=== PATIENT | female | born 1935 | race Caucasian/White ===

== ENCOUNTER 2017-12-08 13:46 | Outpatient (CLI) | payer MEDICARE, MEDICAID, SELFPAY ==
[2017-12-08] VITALS (9 sets, daily range): BP systolic 111–152; BP diastolic 49–77; PULSE 64–78; RESP 18–20; TEMP 36.4; O2SAT 97–100
--- NOTE | 2017-12-08 13:47 | DI.RAD.S_ITS ---
PROCEDURE: PAIN L/S TRANSFORAMINAL INJECT INDICATIONS: Lumbar stenosis with right lower extremity symptoms FINDINGS: Fluoroscopic spot filming was performed to verify placement of spinal needles at the right L4-5 level(s), as labeled on the films. Appropriate location(s) of the needle tip(s) was confirmed by injection of iodinated contrast. IMPRESSION: Successful right L4-L5 needle tip localization for transforaminal epidural steroid injection. Dictated by: Marcio Maravilla M.D. on 12/08/2017 at 15:56 Approved by: Marcio Maravilla M.D. on 12/08/2017 at 16:11
[2017-12-08] MEDS: MIDAZOLAM 5 MG/5 ML VIAL IV (14:25)
[2017-12-08] MEDS: IOPAMIDOL 15 ML VIAL 3 ML INJ (14:34)
[2017-12-08] MEDS: DEXAMETHASONE 10 MG/ML VIAL 20 MG INJ (14:34)
[2017-12-08] MEDS: BUPIVACAINE 0.25% (PF) VIAL 2 ML INJ (14:34)
[2017-12-08] MEDS: methylPREDNISolone acetate 80 MG/ML VIAL INJ (14:34)
--- NOTE | 2017-12-08 14:36 | PC.NURSE ---
pt being assisted off table and transported to post op area in stable condition
--- NOTE | 2017-12-08 14:42 | P.PCN_ITS ---
Procedures Date/Time Date of procedure: 12/08/17 Time of procedure: 14:41 General Procedure description: PREOP DIAGNOSIS 1. FORMAINAL STENOSIS WITH LE SYMPTOMS POST OP DIAGNOSIS 1. FORMAINAL STENOSIS WITH LE SYMPTOMS PROCEDURES 1. FLUOROSCOPICALLY GUIDED CONTRAST CONTROLLED TRANSFORAMINAL EPIDURAL STEROID INJECTION - RIGHT L4/5 TFESI PHYSICIAN: Richie Burden DO INDICATIONS: Uyen is referred by Dr. Mchugh for treatment of Foraminal Stenosis with Right LE Symptoms FINDINGS Foraminal Nerve Root Compression secondary to disc disease and facet hypertrophy DESCRIPTION OF PROCEDURE: Following denial of allergy and review of potential side effects and complications, including, but not necessarily limited to, infection, allergic reaction, local tissue breakdown, stroke, temporary or permanent nerve injury, paralysis, and possible , the patient indicated that the patient understood and agreed to proceed. An informed consent document was signed by the patient, witnessed by a nurse, and placed in the patient's chart. Additionally, other treatment options including medications, modalities, and physical therapy were reviewed with the patient. After review of previous anaesthesic history and IV conscious sedation the patient was deemed safe to proceed with todays procedure with IV conscious sedation as ASA class II designation. Safety time-out was performed to confirm patient ID, procedure to be performed and site of procedure. IV sedation was accomplished with a combination of 2mg of Versed was administered by the RN after DO order, titrated to patient comfort during the course of the procedure while the patient remained responsive to all verbal commands In the prone position following sterile prep and drape of the lumbar region, the Right L4/5 posterior neuroforamen was identified fluoroscopically. The skin was anesthetized via a 25-gauge 1.5-inch needle with 1% lidocaine solution. At this point, a 25-gauge 3.5-inch spinal needle was atraumatically introduced and advanced under fluoroscopic guidance through the posterior Right L4/5 neuroforamen to approximately the anterior aspect of the canal. Depth was confirmed on lateral view. Following negative aspiration, injection of approximately 1.5 cc of Isovue 200 under live fluoroscopy in the AP view confirmed excellent flow along the nerve root, into the epidural space without vascular or intrathecal uptake observed Radiological data, including multiple fluoroscopic views of the lumbosacral spine, reveal a spinal needle at the right L4/5 posterior neuroforamen. Subsequent views show flow of contrast material flowing superiorly and inferiorly along the nerve root confirming epidural flow. Subsequently, a test dose of 1.5 cc of 1% lidocaine solution was administered and patient was observed for two minutes for signs or symptoms of complications , including abdominal pain, shortness of breath, bilateral upper or lower extremity weakness, nausea and vomiting, prior to steroid injection. At this point, a total of 3 cc or 20 mg of dexamethasone and 80mg Depo Medrol was injected without incident. The procedure tolerated the procedure well without signs or symptoms of complications prior to transfer to the recovery area continued monitoring without incident.The patient was then transferred to the recovery area where they were observed for an appropriate time after the injection. The patient reported a VAS score of 7 prior to the procedure and a post- procedure VAS of 0. Total Fluoroscopy Time: 20.9 seconds Total Conscious Sedation Time: 24min POST OP INSTRUCTIONS The patient was provided a Pain Log to continue to record their response to the target-specific procedure prior to follow-up visit with their referring physician. Additionally, specific post-injection care instructions and a contact number to our office were provided if concerns arise regarding possible complications associated with the procedure are suspected. Richie Burden DO Complications: none
--- NOTE | 2017-12-08 14:54 | PC.NURSE ---
Received pt from [facility] after procedure. pt stable awake and able to transfer from w/c to chair. resumed monitoring.
== END 2017-12-08 15:20 ==
LOC: RAD 13:46
PROVIDERS: Family Provider Family Medicine; PCP Family Medicine; Visit Provider Physical Medicine & Rehabilitation
DX: M48.061 Spinal stenosis, lumbar region without neurogenic claudication (principal); M51.16 Intervertebral disc disorders with radiculopathy, lumbar region; S32.000A Wedge compression fracture of unspecified lumbar vertebra, initial encounter for closed fracture
CPT/HCPCS: 64483; 99152; J1040; J1100; J2250

== ENCOUNTER → 2018-04-07 10:18 | Outpatient (CLI) | payer MEDICARE, MEDICAID, SELFPAY ==
--- NOTE | 2018-04-07 | DI.MRI.S_ITS ---
PROCEDURE: MR LUMBAR SPINE WO CON INDICATIONS: LOW BACK PAIN TECHNIQUE: Noncontrast sagittal T1 spin echo and T2 fast echo, sagittal STIR, axial T1 and T2 fast spin echo through the lumbar spine. In cases with scoliosis, additional coronal T2 fast spin echo may be performed. COMPARISON: [facility], MR, L-SPINE WITHOUT CONTRAST, 03/13/2014, 9:41. [facility], MR, L-SPINE WITHOUT CONTRAST, 04/24/2016, 10:39. [facility], MR, L-SPINE WITHOUT CONTRAST, 07/03/2011, 9:34. FINDINGS: Image quality: Excellent. Alignment and Curvature: There is normal bony alignment. Bone Marrow: Marrow is of normal overall signal. Several remote compression deformities are seen, including approximately 50% loss of height anteriorly at T12, 40-50% loss of height centrally at L2, approximately 30% loss of height essentially at L4, and approximately 40% loss of height centrally at L5. No acute features are seen. No acute vertebral body compression fractures. Spinal Cord: Conus medullaris terminates at the T12-L1 level. Visualized cord demonstrates normal signal and size. Paraspinous Soft Tissues: No paravertebral masses. T12-L1: Moderate loss of disc height is seen. Loss of disc signal is seen. Moderate generalized disc bulge is seen. Moderate facet joint hypertrophy is seen. Moderate bilateral neural foraminal narrowing is seen, right worse than left. Moderate central canal narrowing is seen. When comparison is made with the prior examination, these findings are similar. L1-L2: At least moderate loss of disc height and disc signal are seen. Moderate disc bulge is seen, with a central disc protrusion, as on series 5 image 13. Mild to moderate facet hypertrophy is seen. There is mild left-sided and no right-sided neural foraminal narrowing seen. Severe central canal narrowing is seen at this level. These degenerative changes have mildly progressed compared to 2017. L2-L3: Mild to moderate loss of disc height and disc signal are seen. Moderate disc bulge is seen, which is eccentric to the right. There is moderate right-sided and moderate to severe left-sided neural foraminal narrowing seen. Severe central canal narrowing is seen at this level. Stable from the prior study. L3-L4: The disc height is well-preserved. Loss of disc signal is seen at this level. Note is made of a non-acute Schmorl's node at the superior endplate of L4, as on series 2 image 8. Moderate disc bulge is seen at this level. Moderate facet hypertrophy is seen, with associated moderate hypertrophy of the ligamentum flavum. Moderate bilateral neural foraminal narrowing is seen. Moderate central canal narrowing is seen. When comparison is made with the prior examination, these findings are similar. L4-L5: The disc height is well-preserved. Loss of disc signal is seen at this level. At least moderate disc bulge is seen. Moderate to prominent facet hypertrophy is seen at this level. There is associated moderate hypertrophy of the ligamentum flavum. There is at least moderate left-sided and moderate to severe right-sided neural foraminal narrowing seen. There is severe central canal narrowing. Stable from the prior study. L5-S1: The disc height is well-preserved. Loss of disc signal is seen at this level. Moderate disc bulge is seen, which is eccentric to the right. Moderate to prominent facet hypertrophy is seen. There is moderate to severe bilateral neural foraminal narrowing seen. At least moderate central canal narrowing is seen. No significant change from the prior. IMPRESSION: Multiple levels of lumbar spine degenerative changes are seen, which are mildly progressed at L1-L2 compared to 2017, yet otherwise appear similar. Multiple levels of stable compression deformities can be seen. Dictated by: John Solorzano M.D. on 04/07/2018 at 10:42 Approved by: John Solorzano M.D. on 04/07/2018 at 10:50
== END ==
PROVIDERS: PCP Family Medicine; Visit Provider Acupuncturist
DX: M54.5 Low back pain (principal); M47.816 Spondylosis without myelopathy or radiculopathy, lumbar region; M47.817 Spondylosis without myelopathy or radiculopathy, lumbosacral region; M48.061 Spinal stenosis, lumbar region without neurogenic claudication; M48.07 Spinal stenosis, lumbosacral region
CPT/HCPCS: 72148

== ENCOUNTER → 2020-10-15 11:57 | Outpatient (CLI) | payer MEDICARE, MEDICAID, SELFPAY ==
--- NOTE | 2020-10-15 12:03 | DI.RAD.S_ITS ---
PROCEDURE: XR HIP W PEL IF DONE LT 2V INDICATIONS: LT HIP/THIGH OSTEOARTHRITIS TECHNIQUE: AP pelvis and lateral view of the left hip acquired. COMPARISON: [facility], , HIP 2V RIGHT, 08/09/2014, 12:01. FINDINGS: Bones: Patient is status post right hip arthroplasty, with hardware components in expected positions. The hip joint appears congruent. There is been interval progression of now severe, complete left femoroacetabular joint space loss, irregular sclerotic change, and spurring. There are also degenerative changes in the visible lumbar spine. The visualized bony structures appear intact. Soft tissues: Overlying postoperative changes are noted. No suspicious soft tissue densities. IMPRESSION: 1. Progression of now severe left hip osteoarthritic change. 2. Stable right hip arthroplasty. Dictated by: Krysta Hatch M.D. on 10/15/2020 at 15:12 Approved by: Krysta Hatch M.D. on 10/15/2020 at 15:12
== END ==
PROVIDERS: PCP Family Medicine; Referring Provider Acupuncturist; Visit Provider Acupuncturist
DX: M16.12 Unilateral primary osteoarthritis, left hip (principal); Z96.641 Presence of right artificial hip joint
CPT/HCPCS: 73502

== ENCOUNTER 2020-11-20 12:27 | Emergency (ER) | payer MEDICARE, MEDICAID, SELFPAY ==
[2020-11-20 12:32] VITALS: BP 159/67; PULSE 67; RESP 16; TEMP 36.8; O2SAT 96; BMI 43.4
--- NOTE | 2020-11-20 12:35 | DI.RAD.S_ITS ---
PROCEDURE: XR RIBS RT MIN 3V W CXR 1V INDICATIONS: fall,rib pain TECHNIQUE: To views of the right ribs were acquired, along with a single view chest. COMPARISON: None. FINDINGS: Surgical changes and devices: None. Bones and chest wall: No fractures or dislocations. No suspicious bony lesions. Overlying soft tissues appear unremarkable. Generalized decrease in osseous mineralization noted. Bilateral glenohumeral joint space narrowing and marginal osteophytes greater on the left. Lungs and pleura: No pleural effusions or pneumothorax. Lungs appear clear. Mediastinum: Mediastinal contours appear normal. Heart size is normal. Atherosclerotic vascular calcification noted in the aortic arch. IMPRESSION: Osteopenia without evidence of fracture or pneumothorax Approved by: Froy Dominique M.D. on 11/20/2020 at 12:17
--- NOTE | 2020-11-20 12:48 | ED.FALL ---
HPI - Fall <Tonja Wilfredo [facility]ta [facility] - Last Filed: 11/20/20 16:23> General Chief Complaint: Fall Stated Complaint: fell on wednesday- still in pain, feels ribs cracked Time Seen by Provider: 11/20/20 12:48 Source: patient Mode of arrival: Wheelchair History of Present Illness HPI Narrative: 84-year-old female presents to the ED for right sided rib pain after having a ground level fall at home 11/18/2020. She denies hitting her head in the fall, states EMS came, she was having difficulty getting up due to her chronic left hip pain. She declined going to the emergency department as she did not have any pain, or any obvious injuries. She reports that she was having a difficult time trying to pull herself up and that is when she feels like she injured her right ribs. She denies having any shortness of breath, cough, chest pain, shoulder pain or other. She says the pain is worse when she wakes up in the morning and tries to get up, and it is about a 6/10. She reports that she sees [facility] pain clinic for her chronic pain, and takes oxycodone 3 times a day for her other problems, she states that this has not touched or rib pain it has only been helpful on her other extremity pain. Related Data Home Medications Medication Instructions Recorded Confirmed valsartan 80 mg tablet (Diovan) QPM #0 07/08/16 01/21/18 magnesium oxide SEE INSTRUCTIONS #0 05/25/17 01/21/18 albuterol sulfate 90 mcg/actuation 2 puff INHALATION Q6H PRN 12/02/17 01/21/18 aerosol inhaler (Ventolin HFA) aspirin 325 mg tablet,delayed 325 mg PO DAILY 12/02/17 01/21/18 release calcitonin (salmon) 200 1 spray INTRANASAL (ALT) DAILY 12/02/17 01/21/18 unit/actuation nasal spray cholecalciferol (vitamin D3) 25 1,000 unit PO DAILY 12/02/17 01/21/18 mcg (1,000 unit) capsule diphenhydramine HCl 25 mg capsule 25 mg PO Q4H PRN 12/02/17 01/21/18 (Benadryl) fluticasone propionate 50 2 spray NASAL DAILY 12/02/17 01/21/18 mcg/actuation nasal spray,suspension (Flonase Allergy Relief) furosemide 40 mg tablet 40 mg PO BID 12/02/17 01/21/18 meloxicam 15 mg tablet (Mobic) 15 mg PO DAILY 12/02/17 01/21/18 montelukast 10 mg tablet 10 mg PO QPM 12/02/17 01/21/18 vitamin B complex 1 cap PO DAILY 12/02/17 01/21/18 cyclobenzaprine 10 mg tablet 10 mg PO TID PRN 01/21/18 01/21/18 Previous Rx's Medication Instructions Recorded levothyroxine 50 mcg tablet 50 mcg PO QAM #90 tab 07/08/16 (Synthroid) oxycodone-acetaminophen 5 mg-325 1 tab PO TID PRN #5 tab 11/20/20 mg tablet (Percocet) Allergies Allergy/AdvReac Type Severity Reaction Status Date / Time pregabalin [From LYRICA] Allergy Unknown Verified 11/20/20 12:35 sertraline [SERTRALINE] Allergy Unknown Verified 11/20/20 12:35 gabapentin [GABAPENTIN] AdvReac Severe It was Verified 11/20/20 12:35 like I was not living morphine [MORPHINE] AdvReac Mild nausea Verified 11/20/20 12:35 Review of Systems <ANTHONY Padilla - Last Filed: 11/20/20 16:23> Review of Systems Narrative: General: denies fever, chills Head/Neck: denies headache, neck pain Eyes: denies visual changes, eye pain Cardio: denies chest pain, palpitations Respiratory: denies shortness of breath, cough, denies pain with breathing, GI: denies abdominal pain, nausea, vomiting, or diarrhea : denies dysuria, hematuria MSK: denies joint pain, muscle weakness, denies back pain Skin: denies rash, itching Neuro: denies numbness, tingling Patient History <ANTHONY Padilla - Last Filed: 11/20/20 16:23> Surgical History History of cataract removal with insertion of prosthetic lens Status post hysterectomy Family History Brother Age: 91 Heart disease Brother Age: 86 High cholesterol Father Heart disease Hypertension Mother Hypertension Sister Heart disease Social History Smoking Status: Former smoker Smoking Status: Former smoker alcohol intake frequency: holidays/special occasions only Substance Use Type: does not use Exam <ANTHONY Padilla - Last Filed: 11/20/20 16:23> Narrative Exam Narrative: Independently reviewed vitals signs and nursing notes. General: Awake, alert, nontoxic, no cardiorespiratory distress, obese Head/Neck: Atraumatic, neck full range of motion Eyes: EOMI, conjunctiva normal Nose: nares patent, no rhinorrhea Mouth/Throat: moist mucus membranes, no oral lesions Cardio: Regular rate and rhythm, no peripheral edema Respiratory: respirations unlabored without wheezing, stridor, or rales. No retractions. No crepitus GI: Abdomen soft, nontender MSK: Moves all extremities, neurovascularly intact, patient using both of her arms frequently while talking, without pain, she endorses having pain that is limiting to her movement although she does not have any flexion or extension pain of her right arm, no pain with internal or external rotation in her shoulder, no pain with deep breath, no weakness, CSM to right arm is intact, Skin: Normal capillary refill, no rash Neuro: Normal speech and cognition, normal gait Initial Vital Signs Initial Vital Signs: Vital Signs Temperature 98.2 F 11/20/20 12:32 Pulse Rate 67 11/20/20 12:32 Respiratory Rate 16 11/20/20 12:32 Blood Pressure 159/67 H 11/20/20 12:32 Pulse Oximetry 96 11/20/20 12:32 <Essie Elise DO - Last Filed: 11/20/20 19:58> Initial Vital Signs Initial Vital Signs: Vital Signs Temperature 98.2 F 11/20/20 12:32 Pulse Rate 67 11/20/20 12:32 Respiratory Rate 16 11/20/20 12:32 Blood Pressure 159/67 H 11/20/20 12:32 Pulse Oximetry 96 11/20/20 12:32 Course <ANTHONY Padilla - Last Filed: 11/20/20 16:23> Orders Ordered: ED Orders 11/20/20 12:35 XR ribs RT min 3V w CXR1V Stat Discontinued Medications Oxycodone/Acetaminophen (Oxycodone/Acetaminophen 5/325 Tablet) 1 tab PO NOW ONE Stop: 11/20/20 13:34 Last Admin: 11/20/20 13:40 Dose: 1 tab Documented by: ELDON Vital Signs Vital signs: Vital Signs - 8 hr 11/20/20 12:32 11/20/20 14:18 Temperature 98.2 F Pulse Rate 67 59 L Respiratory Rate 16 18 Blood Pressure 159/67 H 145/76 H Pulse Oximetry 96 99 <Essie Elise DO - Last Filed: 11/20/20 19:58> Orders Ordered: ED Orders 11/20/20 12:35 XR ribs RT min 3V w CXR1V Stat Discontinued Medications Oxycodone/Acetaminophen (Oxycodone/Acetaminophen 5/325 Tablet) 1 tab PO NOW ONE Stop: 11/20/20 13:34 Last Admin: 11/20/20 13:40 Dose: 1 tab Documented by: ELDON Vital Signs Vital signs: Vital Signs - 8 hr 11/20/20 12:32 11/20/20 14:18 Temperature 98.2 F Pulse Rate 67 59 L Respiratory Rate 16 18 Blood Pressure 159/67 H 145/76 H Pulse Oximetry 96 99 MDM - Fall <ANTHONY Padilla - Last Filed: 11/20/20 16:23> Imaging Data right ribs: Radiologist's Impression: PROCEDURE:? XR RIBS RT MIN 3V W CXR 1V ? INDICATIONS:? fall,rib pain ? TECHNIQUE:? To views of the right ribs were acquired, along with a single view chest.? ? COMPARISON:? None. ? FINDINGS:? ? Surgical changes and devices:? None.? ? Bones and chest wall:? No fractures or dislocations.? No suspicious bony lesions.? Overlying soft tissues appear unremarkable.? Generalized decrease in osseous mineralization noted.? Bilateral glenohumeral joint space narrowing and marginal osteophytes greater on the left. ? Lungs and pleura:? No pleural effusions or pneumothorax.? Lungs appear clear.? ? Mediastinum:? Mediastinal contours appear normal.? Heart size is normal.? Atherosclerotic vascular calcification noted in the aortic arch. ? IMPRESSION:? ? Osteopenia without evidence of fracture or pneumothorax ? MDM Narrative Medical decision making narrative: 84-year-old female with chronic left shoulder pain, chronic lumbar pain due to stenosis, and chronic right lower extremity pain who is a patient [facility] as well as Dr. Burden's presents to the ED for pain in her right ribs after a fall 2 days ago at home. EMS was called and she declined to go to the hospital that time. Today on right rib radiograph there was no evidence of fracture, no pneumothorax, or other acute abnormalities. Patient with full range of motion, was alert, oriented, and seeking additional pain medicine. She currently takes 3 Percocets per day on her current regimen, states this was not enough to cover her pain. She was given 1 Percocet while she was here today, and prescribed a short course and recommended to follow-up with her pain management provider if she continues to have this pain. This is most likely a muscle strain or costochondritis, as the pain started while she was trying to pull herself up. There is no ecchymosis, erythema, or edema where she has pain. Differential includes pleurisy, and pneumonia although less likely with no respiratory symptoms or pain with respirations. Patient is appropriate and amenable to discharge home. Vital signs are stable on repeat examination is unremarkable. Patient has been informed of results. Patient has been given strict return to ER precautions for any new or worsening symptoms. Patient understands to follow up closely with outpatient providers as instructed. Patient understands plan and agrees to discharge home. All questions and concerns answered at this time. Discharge Plan Departure Patient Disposition: Home Clinical Impression: Rib pain on right side Instructions: How to Prevent Falls Activity Restrictions/Additional Instructions: *You have been diagnosed with right rib pain, luckily there are no fractures. This is most likely a muscle strain. Please continue to do gentle range of motion to keep the area from getting tight. Take your usual pain medication as prescribed. I recommend getting into the pain clinic as soon as possible if your pain is not covered with your current regimen. Please try to avoid falls as much as possible, it will be good for you to start physical therapy if you are not already participating in it, it can help your balance and her strength in the setting of an injury. Please see your primary care provider for referral for that if you desire, or if your current pain management medications are not covering your pain. *What to do: *Please continue to take your regular medications as directed. [ ] New medication prescriptions sent to your pharmacy: [[facility] ] [ ] New medication written as a paper prescription [ x] No new medications given *Please follow up with your primary care provider in 2-3 days, call for an appointment. Let them know you were seen in the Emergency Department and that we ask that you be seen in follow up. We will electronically transmit a record of today's note if your PCP is in our system *If you do not have a primary care provider please contact the [facility] Resource line at [phone]. They will ask some questions about your medical history and help get you set up with a doctor in the community. *Return to Emergency Department if you should have any new, worsening or concerning symptoms, such as [fever greater than 101F, chills, worsening pain, persistent vomiting or other bothersome symptoms] Prescriptions: New oxycodone-acetaminophen [Percocet] 5-325 mg tablet 1 tab PO TID PRN (Reason: pain) Qty: 5 RF: 0 No Action valsartan [Diovan] 80 MG tablet QPM Qty: 0 RF: 0 levothyroxine [Synthroid] 50 MCG tablet 50 mcg PO QAM Qty: 90 RF: 0 magnesium oxide 250 MG tablet SEE INSTRUCTIONS Qty: 0 RF: 0 cyclobenzaprine 10 mg tablet 10 mg PO TID PRN (Reason: muscle spasm) RF: 0 furosemide 40 mg tablet 40 mg PO BID RF: 0 meloxicam [Mobic] 15 mg tablet 15 mg PO DAILY RF: 0 aspirin 325 mg tablet,delayed release (DR/EC) 325 mg PO DAILY RF: 0 calcitonin (salmon) 200 unit/actuation spray,non-aerosol 1 spray Intranasal (ALT) DAILY RF: 0 diphenhydramine HCl [Benadryl] 25 mg capsule 25 mg PO Q4H PRNRF: 0 montelukast 10 mg tablet 10 mg PO QPM RF: 0 albuterol sulfate [Ventolin HFA] 90 mcg/actuation HFA aerosol inhaler 2 puff INHALATION Q6H PRNRF: 0 fluticasone propionate [Flonase Allergy Relief] 50 mcg/actuation spray,suspension 2 spray NASAL DAILY RF: 0 vitamin B complex capsule 1 cap PO DAILY RF: 0 cholecalciferol (vitamin D3) 1,000 unit capsule 1,000 unit PO DAILY RF: 0 Referrals: [facility] [Provider Group] Richie Burden DO [Physician] - Goyo Marie DO [Primary Care Provider] - <Essie Elise DO - Last Filed: 11/20/20 19:58> Cosign ED Attending Cosignature Attestation: I was immediately available in the department for consultation. Documentation has been reviewed. I agree with assessment and plan.
[2020-11-20] MEDS: OXYCODONE/ACETAMINOPHEN 5/325 TABLET 1 TAB PO (13:40)
[2020-11-20 14:18] VITALS: BP 145/76; PULSE 59; RESP 18; O2SAT 99
== END 2020-11-20 14:18 | disposition home or self-care (01) ==
PROVIDERS: Emergency Provider Nurse Practitioner Critical Care Medicine; PCP Family Medicine
DX: R07.81 Pleurodynia (principal); W19.XXXA Unspecified fall, initial encounter
CPT/HCPCS: 71101; 99283

== ENCOUNTER 2021-01-23 17:48 | Emergency (ER) | payer MEDICARE, MEDICAID, SELFPAY ==
[2021-01-23 18:09] VITALS: BP 188/99; PULSE 65; RESP 18; TEMP 36.6; O2SAT 96; BMI 43.2
--- NOTE | 2021-01-23 19:16 | PC.NURSE ---
ems reported she got up out of her recliner and showed/pointed to the area on her rt side, then walked over to the gurney.
--- NOTE | 2021-01-23 19:31 | ED.BACK ---
HPI - Back Pain/Injury General Chief Complaint: Back Pain/Injury Stated Complaint: RT LOW BACK PAIN/injury 11/2020 Time Seen by Provider: 01/23/21 18:14 Source: patient Mode of arrival: EMS Limitations: no limitations History of Present Illness HPI Narrative: Patient is an 85-year-old female here for evaluation of right lower back discomfort. She had a injury back in the beginning of November. She was seen shortly afterwards and had x-rays performed which did not show any signs of fractures. Since that time she has had continued discomfort in her right flank and right lower back. She is on a pain contract. She states that an [id number] lidocaine patches helped in the past but that is not on there currently. She also states that several back said that she had hoped it helped her symptoms as well. She arrived by EMS for further evaluation. Related Data Home Medications Medication Instructions Recorded Confirmed valsartan 80 mg tablet (Diovan) QPM #0 07/08/16 01/21/18 magnesium oxide SEE INSTRUCTIONS #0 05/25/17 01/21/18 albuterol sulfate 90 mcg/actuation 2 puff INHALATION Q6H PRN 12/02/17 01/21/18 aerosol inhaler (Ventolin HFA) aspirin 325 mg tablet,delayed 325 mg PO DAILY 12/02/17 01/21/18 release calcitonin (salmon) 200 1 spray INTRANASAL (ALT) DAILY 12/02/17 01/21/18 unit/actuation nasal spray cholecalciferol (vitamin D3) 25 1,000 unit PO DAILY 12/02/17 01/21/18 mcg (1,000 unit) capsule diphenhydramine HCl 25 mg capsule 25 mg PO Q4H PRN 12/02/17 01/21/18 (Benadryl) fluticasone propionate 50 2 spray NASAL DAILY 12/02/17 01/21/18 mcg/actuation nasal spray,suspension (Flonase Allergy Relief) furosemide 40 mg tablet 40 mg PO BID 12/02/17 01/21/18 meloxicam 15 mg tablet (Mobic) 15 mg PO DAILY 12/02/17 01/21/18 montelukast 10 mg tablet 10 mg PO QPM 12/02/17 01/21/18 vitamin B complex 1 cap PO DAILY 12/02/17 01/21/18 cyclobenzaprine 10 mg tablet 10 mg PO TID PRN 01/21/18 01/21/18 Previous Rx's Medication Instructions Recorded levothyroxine 50 mcg tablet 50 mcg PO QAM #90 tab 07/08/16 (Synthroid) oxycodone-acetaminophen 5 mg-325 1 tab PO TID PRN #5 tab 11/20/20 mg tablet (Percocet) lidocaine 5 % topical patch 1 patch TOPICAL DAILY #15 ea 01/23/21 Allergies Allergy/AdvReac Type Severity Reaction Status Date / Time pregabalin [From LYRICA] Allergy Unknown Verified 11/20/20 12:35 sertraline [SERTRALINE] Allergy Unknown Verified 11/20/20 12:35 gabapentin [GABAPENTIN] AdvReac Severe It was Verified 11/20/20 12:35 like I was not living morphine [MORPHINE] AdvReac Mild nausea Verified 11/20/20 12:35 Review of Systems Constitutional Constitutional: Reports system reviewed and no additional complaints, except as documented Respiratory Respiratory: Reports system reviewed and no additional complaints, except as documented Musculoskeletal Musculoskeletal: Reports system reviewed and no additional complaints, except as documented Integumentary/Breasts Skin/Breast: Reports system reviewed and no additional complaints, except as documented Neurologic Neurologic: Reports system reviewed and no additional complaints, except as documented Patient History Medical History DJD of left shoulder Lumbar compression fracture Lumbosacral radiculopathy at L4 Spinal stenosis, multilevel Surgical History (Updated 01/24/21 @ 02:01 by Michel Peña DO) History of cataract removal with insertion of prosthetic lens Status post hysterectomy Status post ORIF of fracture of ankle Family History Brother Age: 91 Heart disease Brother Age: 86 High cholesterol Father Heart disease Hypertension Mother Hypertension Sister Heart disease Social History Smoking Status: Former smoker Smoking Status: Former smoker alcohol intake frequency: holidays/special occasions only Substance Use Type: does not use Exam Initial Vital Signs Initial Vital Signs: Vital Signs Temperature 97.9 F 01/23/21 18:09 Pulse Rate 65 01/23/21 18:09 Respiratory Rate 18 01/23/21 18:09 Blood Pressure 188/99 H 01/23/21 18:09 Pulse Oximetry 96 01/23/21 18:09 Const General: cooperative HENMT Head: normal to inspection and normocephalic Resp Effort & Inspection: normal respiratory effort GI Palpation: soft Back/Spine/Pelvis Thoracic/Lumbar Spine: No thoracic spinal tenderness and No lumbar spinal tenderness Skin General: no rashes or lesions noted Neuro General: patient alert, patient awake and moves all extremities Extrem General: normal to inspection, capillary refill normal and No edema Psych Appearance: grossly normal and well kempt Course Orders Ordered: Discontinued Medications Lidocaine (Lidocaine Patch 1 Each Adh..Patch) 1 each TOP NOW ONE Stop: 01/23/21 19:33 Last Admin: 01/23/21 19:39 Dose: 1 each Documented by: EUGENIA Methocarbamol (Methocarbamol 500 Mg Tablet) 500 mg PO NOW ONE Stop: 01/23/21 19:33 Last Admin: 01/23/21 19:39 Dose: 500 mg Documented by: EUGENIA Vital Signs Vital signs: Vital Signs - 8 hr 01/23/21 18:09 01/23/21 20:39 Temperature 97.9 F Pulse Rate 65 83 Respiratory Rate 18 17 Blood Pressure 188/99 H 130/65 Pulse Oximetry 96 94 MDM - Back Pain/Injury MDM Narrative Medical decision making narrative: There is no rash over the area that is concerning for zoster. She has had pain in the area since an injury that has been over 2 months since the initial event. Patient is ambulatory. If there were any fractures during that time they would have healed by now. No indication for radiologic studies here in the emergency department. It will provide a prescription for lidocaine patches as this seems to have helped in the past. She does have a prescription for Robaxin already at home and she was encouraged to take this as directed. No further workup needed in the emergency department. Patient can be safely discharged home. Discharge Plan Departure Patient Disposition: Home Clinical Impression: Back pain Instructions: DI for Low Back Pain Activity Restrictions/Additional Instructions: I do recommend that you continue to take all of your medications as directed. I did send a prescription for lidocaine patches to the [facility] pharmacy. I do recommend that you talk with your primary doctor and also your design painter for further workup. Prescriptions: New lidocaine 5 % adhesive patch,medicated 1 patch topical DAILY Qty: 15 0RF Rx Instructions: leave on most painful area for up to 12 hrs No Action valsartan [Diovan] 80 MG tablet QPM Qty: 0 0RF levothyroxine [Synthroid] 50 MCG tablet 50 mcg PO QAM Qty: 90 0RF magnesium oxide 250 MG tablet SEE INSTRUCTIONS Qty: 0 0RF oxycodone-acetaminophen [Percocet] 5-325 mg tablet 1 tab PO TID PRN (Reason: pain) Qty: 5 0RF cyclobenzaprine 10 mg tablet 10 mg PO TID PRN (Reason: muscle spasm) 0RF Label Comments: 1 tab to aid muscle spasms every pm or when needed w/oxy/acetaminophen tab 5-325 mg furosemide 40 mg tablet 40 mg PO BID 0RF meloxicam [Mobic] 15 mg tablet 15 mg PO DAILY 0RF aspirin 325 mg tablet,delayed release (DR/EC) 325 mg PO DAILY 0RF calcitonin (salmon) 200 unit/actuation spray,non-aerosol 1 spray Intranasal (ALT) DAILY 0RF diphenhydramine HCl [Benadryl] 25 mg capsule 25 mg PO Q4H PRN0RF montelukast 10 mg tablet 10 mg PO QPM 0RF albuterol sulfate [Ventolin HFA] 90 mcg/actuation HFA aerosol inhaler 2 puff INHALATION Q6H PRN0RF fluticasone propionate [Flonase Allergy Relief] 50 mcg/actuation spray,suspension 2 spray NASAL DAILY 0RF vitamin B complex capsule 1 cap PO DAILY 0RF cholecalciferol (vitamin D3) 1,000 unit capsule 1,000 unit PO DAILY 0RF Referrals: Goyo Marie DO [Primary Care Provider] -
[2021-01-23] MEDS: methocarbamoL 500 MG TABLET PO (19:39)
[2021-01-23] MEDS: LIDOCAINE PATCH 1 EACH ADH..PATCH TOP (19:39)
[2021-01-23 20:39] VITALS: BP 130/65; PULSE 83; RESP 17; O2SAT 94
== END 2021-01-23 20:58 | disposition home or self-care (01) ==
PROVIDERS: Emergency Provider Emergency Medicine; PCP Family Medicine
DX: M54.50 Low back pain, unspecified (principal)
CPT/HCPCS: 99283

== ENCOUNTER → 2021-07-21 10:22 | Outpatient (CLI) | payer MEDICARE, MEDICAID, SELFPAY ==
[2021-07-21 12:05] LABS: COVID19 -Nasal RAPID Negative (Negative)
== END ==
PROVIDERS: PCP Physician Assistant; Referring Provider Orthopaedic Surgery; Visit Provider Orthopaedic Surgery
DX: Z20.822 Contact with and (suspected) exposure to COVID-19 (principal)
CPT/HCPCS: 87635; C9803

== ENCOUNTER 2021-07-23 11:29 | Observation (INO) | payer MEDICARE, MEDICAID, SELFPAY ==
[2021-07-16 12:42] VITALS: BMI 35.2
[2021-07-22] VITALS (9 sets, daily range): BP systolic 104–153; BP diastolic 57–81; PULSE 60–77; RESP 11–18; TEMP 36.1–36.6; O2SAT 96–100; BMI 35.2
--- NOTE | 2021-07-22 09:24 | DI.RAD.S_ITS ---
PROCEDURE: XR PELVIS 1-2V INDICATIONS: Prosthesis placement TECHNIQUE: 2 intraoperative views of the lower pelvis acquired. COMPARISON: None. FINDINGS: Intraoperative images demonstrate placement of left hip arthroplasty. Right hip arthroplasty is present. IMPRESSION: Intraoperative images obtained during left hip arthroplasty. Dictated by: Thiago Ji M.D. on 07/22/2021 at 15:04 Approved by: Thiago Ji M.D. on 07/22/2021 at 16:22
[2021-07-22] MEDS: LACTATED RINGERS 1,000 ML 42 ML IV ×2 (10:00→12:00)
[2021-07-22] MEDS: ACETAMINOPHEN 325 MG TABLET 975 MG PO (10:12)
[2021-07-22] MEDS: VANCOMYCIN 1,000 MG/200 ML PIGGYBACK 200 MG IV (10:18)
--- NOTE | 2021-07-22 10:59 | PM.PREOP ---
Pre-operative Note COVID-19 COVID-19 status: Negative Interval Note History & Physical reviewed/Exam performed by Physician: Yes Changes to H&P: No
--- NOTE | 2021-07-22 11:00 | P.OP_ITS ---
Operative Date/Time/Diagnoses Date of procedure: 07/22/21 Time of procedure: 11:30 Pre-op diagnosis: left hip OA Post-op diagnosis: same Procedure & Clinicians Procedure: Left total hip arthroplasty posterior approach Same procedure as scheduled: Yes Indications: The patient has had progressively worsening left hip pain with radiographic felicita nges consistent with arthritis. Non-operative management has failed and the patient has requested total hip replacement. The risks, benefits and alternatives to surgery were discussed with the patient prior to proceeding. Risks discussed included, but were not limited to, failure to relieve pain, leg length discrepancy, dislocation, stiffness, infection, nerve damage, deep venous thrombosis, pulmonary embolism, stroke, coma, heart attack, permanent paralysis and , as well as the potential need for eventual revision of the prosthetic. Surgeon: Avril Sanchez Food Service Kitchen Supervisor: Derrick Junior Anesthesia Type: General and Spinal Operative Notes Findings: Severe left hip osteoarthritis, adequate stability, soft bone Closure Type: primary Specimen(s): none sent Prosthetic devices, grafts, tissues, transplants, or devices: Sanchez and nephew size 16 synergy porous, size 56 R3 cup, neutral poly liner, 36 x -3 cobalt chrome head, one 6.5 mm screw Estimated Blood Loss (mL): 250 Blood products transfused: none Procedure in detail: The patient was seen in the pre-operative area, where the patient identified the left hip as the operative site and this was marked with my initials. The patient received pre-operative antibiotics and was taken to the operating room and placed on the operative table in the right lateral decubitus position after satisfactory anesthesia. A multimedia engineer out was performed. The left leg was prepared from the ankle to the iliac crest with ChloroPrep in the usual fashion and draped through sterile drapes. The hip was approached through an approximately 20 cm incision centered over the greater trochanter and curving gently posteriorly as it went proximally. This was carried sharply to the fascia christiano, which was divided and retracted with a self retaining retractor. The trochanteric bursa was excised with care being taken to avoid the sciatic nerve, which was identified and protected throughout the case. The short external rotators were incised and the capsulomuscular flap was raised and tagged for later repair. The hip was dislocated, and a femoral neck osteotomy performed approximately 15 mm above the lesser trochanter. Retractors were placed around the femur. The canal was opened with a box cutting osteotome, followed by a T handled reamer and a lateralizing reamer. The chili pepper broach was then used, followed by sequential broaching until there was good stability of the broach in the femur. Retractors were placed to expose the acetabulum. The labrum and central soft tissues were removed. Reaming was performed initially going up in 2 mm increments, then 1 mm increments until good bite was obtained with an odd sized reamer. The cup 1 mm larger than the last reamer was then inserted using the appropriate anteversion guides. It was further stabilized with a single screw. A trial neutral liner was placed. The broach was placed in the canal. She had very soft bone. A trial head and neck were then placed and the hip relocated and checked for leg length and stability. An intraoperative film confirmed the component position and no evidence of fracture. The patient was stable in the position of sleep, of squatting, and could be put through a range of motion with 45 degrees internal rotation without dislocation. At 90 degrees flexion, internal rotation to 70? was possible before dislocation. This was felt to be satisfactory and the appropriate components were opened, and the trials were removed. The acetabular liner was impacted into position. The final stem was then impacted into the prepared femoral canal. A brief Betadine soak was performed while trialing with head options. The hip was meticulously irrigated with normal saline. Finally the femoral head was impacted onto the stem. The acetabulum was cleared of all material and the hip relocated one final time. The capsulomuscular flap was then repaired to the greater trochanter though an awl hole using the tag sutures. The short external rotators were repaired with a nonabsorbable suture. A deep drain was placed and brought out anteriorly. The fascia christiano was closed with Vicryl. The subcutaneous layer was closed with barbed sutures and SteriStrips. A brianna dressing was applied and the patient was taken to recovery having tolerated the procedure well. Complications: none Post-operative Condition: stable Disposition: Acute Care Plan for aftercare: The patient will be maintained on a standard total hip replacement protocol with weight bearing as tolerated and posterior hip precautions. The patient will receive Aspirin and sequential compression devices for DVT prophylaxis. The patient will be discharged home when safe for the home environment.
[2021-07-22] MEDS: CEFAZOLIN 2 GM/20 ML SYRINGE IV ×2 (11:30→18:20)
[2021-07-22] MEDS: TRANEXAMIC ACID 1,000 MG VIAL 1000 MG INJ ×2 (11:30→13:37)
--- NOTE | 2021-07-22 12:01 | SUR.OPER ---
Lateral on padded OR bed. Gel axillary roll. Arms secured on padded armboard with 3 pillows supporting top arm and gel pad underneath the right arm. Padded hip positioner braces x4 - anterior and posterior chest and pelvis. Additional gel pad used anterior pelvis. Gel pad under bottom leg from knee to foot and secured with tape over sheet.
[2021-07-22] MEDS: SODIUM CHLORIDE IRRIG SOLUTION 250 ML, POVIDONE-IODINE SPONGE STICKS 1 APPLIC IRR (12:13)
[2021-07-22] MEDS: BUPIVACAINE 0.25% (PF) 60 ML, EPINEPHrine 0.3 MG INJ (12:15)
[2021-07-22] MEDS: EPINEPHrine 1 MG/ML IRR (12:24)
[2021-07-22] MEDS: BUPIVACAINE LIPOSOME 266 MG/20 ML VIAL INJ (12:30)
--- NOTE | 2021-07-22 14:15 | DI.RAD.S_ITS ---
PROCEDURE: XR HIP W PEL IF DONE LT 2V INDICATIONS: POST OP LEFT HIP TECHNIQUE: AP pelvis with lateral view(s) of the left hip(s). COMPARISON: [facility], CR, XR PELVIS 1-2V, 07/22/2021, 12:34. [facility], CR, XR HIP W PEL IF DONE LT 2V, 10/15/2020, 12:04. FINDINGS: Bones: Bilateral hip arthroplasties are present. Hardware is intact. No fractures or dislocations. Pelvic ring appears intact. No suspicious bony lesions. Soft tissues: The visualized bowel gas pattern is normal. No suspicious soft tissue calcifications. IMPRESSION: Expected appearance of hip arthroplasty. Dictated by: Thiago Ji M.D. on 07/22/2021 at 14:45 Approved by: Thiago Ji M.D. on 07/22/2021 at 14:46
[2021-07-22] MEDS: LACTATED RINGERS 1,000 ML 125 ML IV ×2 (15:02→22:59)
[2021-07-22] MEDS: OXYCODONE IR 10 MG TABLET PO ×2 (16:20→23:03)
[2021-07-22] MEDS: ACETAMINOPHEN 325 MG TABLET 650 MG PO ×2 (17:16→23:03)
[2021-07-22] MEDS: IBUPROFEN 400 MG TABLET PO ×2 (17:16→23:02)
--- NOTE | 2021-07-22 18:31 | PC.ADMIT ---
[id number] Admission Note: The patient,Uyen Alvarez,85 y/o, was given written information regarding hospital policies, unit procedures and contact persons. Patient's smoking status: Former smoker. Vital Signs - 8 hr 07/22/21 13:48 07/22/21 13:58 07/22/21 14:05 Temperature 97.9 F Pulse Rate 76 77 66 Respiratory Rate 16 11 L 15 Blood Pressure 113/74 107/81 104/72 Pulse Oximetry 100 100 100 07/22/21 14:20 07/22/21 14:50 07/22/21 15:20 Temperature 97 F L 97.6 F 97.7 F Pulse Rate 64 62 60 Respiratory Rate 15 16 16 Blood Pressure 144/67 H 121/57 L 126/81 Pulse Oximetry 100 98 96 Patient admitted to from PACU S/P L posterior total hip replacement by Dr. Sanchez. Patient came up in no pain, RA, A/Ox4, numb below S2. Return of feeling by end of shift, PO pain control. Able to ambulate to bathroom with FWW, belt, and 1p assist.
[2021-07-22] MEDS: ASPIRIN EC 81 MG TABLET PO (20:28)
[2021-07-22] MEDS: methocarbamoL 500 MG TABLET PO (20:28)
[2021-07-22] MEDS: LOSARTAN 50 MG TABLET 100 MG PO (20:28)
[2021-07-22] MEDS: FLUTICASONE 120 SPRAY/16 GM SPRAY.SUSP NASAL (20:29)
[2021-07-22] MEDS: MONTELUKAST 10 MG TABLET PO (20:29)
[2021-07-22] MEDS: DOCUSATE 100 MG CAPSULE PO (20:30)
[2021-07-23] VITALS (7 sets, daily range): BP systolic 104–156; BP diastolic 54–71; PULSE 60–86; RESP 16–20; TEMP 36.3–36.7; O2SAT 94–99
[2021-07-23] MEDS: CEFAZOLIN 2 GM/20 ML SYRINGE IV (02:27)
[2021-07-23 04:27] LABS: Hematocrit 33.4 % (36-46); Hemoglobin 11.6 g/dL (12.0-16.0)
[2021-07-23] MEDS: ACETAMINOPHEN 325 MG TABLET 650 MG PO ×3 (04:53→17:07)
[2021-07-23] MEDS: OXYCODONE IR 10 MG TABLET PO ×5 (04:54→20:54)
[2021-07-23] MEDS: IBUPROFEN 400 MG TABLET PO ×3 (04:54→17:06)
--- NOTE | 2021-07-23 08:06 | PM.PNPO.1 ---
Subjective Subjective Date Patient Seen: 07/23/21 Time Patient Seen: 08:10 Interval history: Patient is complaining of mild left hip pain but increased sciatic type pain. Knee she has had sciatica in the past. She denies any dizziness or lightheadedness. She notes she has no one to help her at home. Exam Vital Signs (past 8 hours): - 07/23/21 04:00 07/23/21 08:00 Temperature 97.4 F L 97.8 F Pulse Rate 63 67 Respiratory Rate 17 16 Blood Pressure 126/58 L 118/61 Pulse Oximetry 96 96 Oxygen Delivery Method Room Air Oxygen Flow Rate 0 Narrative Exam Narrative: Pleasant 85-year-old female, resting comfortably in her chair, no acute distress. Dressing is clean, dry, intact. Bilateral lower extremity: Motor functions are grossly intact, sensations are grossly intact to light touch, calves are soft and nontender to palpation. The Objective Labs Result Diagrams: 07/23/21 04:00 Labs: Laboratory Results - last 24 hr 07/23/21 04:00 Hgb 11.6 L Hct 33.4 L PFSH Medical History Anxiety Asthma Chronic cough Compression fracture Depression DJD of left shoulder Fibromyalgia GERD (gastroesophageal reflux disease) Gout Hemorrhoids Hiatal hernia HTN (hypertension) Hypothyroid Insomnia Lumbar compression fracture Lumbosacral radiculopathy at L4 Osteoarthritis Osteopenia Peripheral neuropathy Sciatica Scoliosis Spinal stenosis, multilevel Surgical History History of cataract removal with insertion of prosthetic lens History of total right hip arthroplasty (08/09/14) Status post epidural steroid injection Status post hysterectomy Status post ORIF of fracture of ankle Family History Brother Age: 92 Heart disease Brother Age: 87 High cholesterol Father Heart disease Hypertension Mother Hypertension Sister Heart disease Social History household members: none Smoking Status: Former smoker alcohol intake: never Assessment & Plan Post-op Postoperative Procedures: Procedures Operation Date: 07/22/21 11:30 Actual Procedure Side Surgeon p Total Hip Arthroplasty Left Avril Sanchez MD Postoperative day: 1 Postoperative status narrative: Stable status post left total hip arthroplasty, posterior approach -mild post hemorrhagic anemia, asymptomatic Postoperative plan narrative: -mobilize with PT. Maintain posterior hip precautions x6 weeks. Weightbearing as tolerated front wheel walker -continue with multimodal pain management. We will add Vistaril for pain/muscle spasms -aspirin 81 mg b.i.d. x6 weeks for DVT prophylaxis -add Decadron 4 mg Q 8 hours for new onset sciatica -disposition to SNF as the patient has no one to help her at home
[2021-07-23] MEDS: ASPIRIN EC 81 MG TABLET PO ×2 (08:21→20:55)
[2021-07-23] MEDS: DOCUSATE 100 MG CAPSULE PO ×2 (08:21→20:55)
[2021-07-23] MEDS: methocarbamoL 500 MG TABLET PO ×2 (08:21→20:54)
[2021-07-23] MEDS: hydrOXYzine pamoate 25 MG CAPSULE PO ×4 (08:21→20:54)
[2021-07-23] MEDS: CHOLECALCIFEROL (VITAMIN D3) 1,000 UNIT TABLET 1000 UNIT PO (08:21)
[2021-07-23] MEDS: AMLODIPINE 5 MG TABLET 2.5 MG PO (08:22)
[2021-07-23] MEDS: FLUTICASONE 120 SPRAY/16 GM SPRAY.SUSP NASAL (08:24)
--- NOTE | 2021-07-23 09:45 | PT.IIE ---
Current Diagnoses Unilateral primary osteoarthritis, left hip (07/22/21) Pain in right hip (07/22/21) Surgery Performed Operation Date: 07/22/21 11:30 Actual Procedures p Total Hip Arthroplasty(Left) - Avril Sanchez MD Surgical History (Last Reviewed 07/23/21 @ 08:11 by Katie Andrew PA-C) History of cataract removal with insertion of prosthetic lens Status post hysterectomy Medical History (Last Reviewed 07/23/21 @ 08:11 by Katie Andrew PA-C) Anxiety Asthma Chronic cough Compression fracture Depression DJD of left shoulder Fibromyalgia GERD (gastroesophageal reflux disease) Gout Hemorrhoids Hiatal hernia HTN (hypertension) Hypothyroid Insomnia Lumbar compression fracture Lumbosacral radiculopathy at L4 Osteoarthritis Osteopenia Peripheral neuropathy Sciatica Scoliosis Spinal stenosis, multilevel Physical Therapy Inpatient Evaluation/Re-Eval M1 PT/OT-IP Prior Functional Status Start: 07/23/21 12:12 Freq: NEEDED Status: Active Protocol: Document 07/23/21 09:45 AB (Rec: 07/23/21 12:29 AB [email or web address]) Medical Review Prior Functional Status Medical History Reviewed Yes Communication able to make needs known Mobility and Gait pt stated that she is modified independent with all mobilities and ambulation without AD Social History Household Members none Living Arrangements Apartment/Condo Number of Floors (Floors) Two Floors Number of Stairs To Enter/Railing? pt stays on main level of the apartment 1 step to the curb and then a ramp to the apartment Home Environment Standard Height Toilet,Tub/ Shower,Ramp Home Equipment Front Wheel Walker,Four Wheel Walker,Raised Toilet Seat w/ Armrests,Shower Seat with Backrest,Hand Held Shower Additional Social History Comment has a caregiver that comes in on the week for ~ 2 hours but more on hours on fridays to assist pt with meals, meds and mobility if needed; pt is by herself on the weekends stated that she has a bedcane on L side and has access on a trapeze M2 PT-IP Current Condition Start: 07/23/21 12:12 Freq: NEEDED Status: Active Protocol: Document 07/23/21 09:45 AB (Rec: 07/23/21 12:29 AB [email or web address]) Physical Therapy Current Condition Current Condition Evaluation Date 07/23/21 Treatment Diagnosis s/p L EDDIE posterior approach; difficulty in walking Onset Date 07/22/21 M3 PT-IP Subjective Start: 07/23/21 12:12 Freq: NEEDED Status: Active Protocol: Document 07/23/21 09:45 AB (Rec: 07/23/21 12:29 AB [id number]) Subjective Physical Therapy Visit Type Type Initial Evaluation Visit Start Time 09:45 Visit Stop Time 10:50 Total Visit Minutes 55 Number of DISTRIBUTED ENERGY SYSTEMS CONSULTANT Visits 0 Physical Therapy Visit Comments Patient Comments agreeable to do PT Therapy Pain Assessment Pain When Pain Assessed At Rest Pain Present Pain Present Pain Reported Location left hip Intensity 2 Scale Used increases to 6/10 with mobility Pain Management Techniques Distraction,Modification of Treatment,Re-positioning, Timing of Activity with Medications M4 PT-IP Mobility and Gait Start: 07/23/21 12:12 Freq: NEEDED Status: Active Protocol: Document 07/23/21 09:45 AB (Rec: 07/23/21 12:29 AB [id number]) PT-Bed Mobility Assessment Supine to Sit Supine to Sit Maximum Assistance,1 Person Assistance Sit to Supine Sit to Supine Maximum Assistance,1 Person Assistance PT-Transfer Assessment Sit to and From Stand Sit to and from Stand Moderate Assistance,Maximum Assistance,1 Person Assistance ,Use of Upper Extremities Equipment Transfer Assistive Device Gait Belt,Front Wheeled Walker Orthotic/Prosthetic Devices or Brace: No Transfers Transfer Destination Bed,Chair Transfer Technique Stand Step Pivot Transfer Ability Level of Assist Maximum Assistance,1 Person Assistance,Use of Upper Extremities Comments Mobility Comments pt seated on chair and agreed to do PT. educated pt on posterior hip precautions and pt requires cues to recall. pt completed sit to stand max A and max cues for hip precautions. pt can be resistance to instructions for safe sit to stand techniques for hip precautions. educated on safety. ambulated in room ~ 25 ft mod to max A and max cues. increase trunk flexion and cued for upright posture. presents with unsteady antalgic gait with decrease LE elevation and heavy UE weight bearing on FWW. pt ambulated to EOB. completed sit<>supine max A and max cues for techniques. completed sit to stand from EOB mod to max A and max cues for hip precautions and step transfer using FWW to chair mod to max A and cues. positioned pt on the chair. refused ice pack. hemanth light and table placed within reach. Gait Assessment Gait Gait Assistance Required: Moderate Assistance,Maximum Assistance,1 Person Assist Distance (Feet) 25 Able to Maintain Weight Bearing Status Yes During Gait Assistive Devices Assistive Device Gait Belt,Front Wheeled Walker Orthotic/Prosthetic Devices or Brace: No Gait Deviations General Gait Pattern Antalgic,Decreased Stride Length,Decreased Feet Clearance,Flexed Trunk,Step-to Gait Factors Limiting Gait Function Factors Limiting Gait Function Decreased Activity Tolerance, Decreased Strength,Difficulty Following Directions,Limited Range of Motion,Pain,Poor Balance,Poor Safety Awareness PT-Balance Assessment Sitting Balance and Reactions Static Sitting Balance Ability Good Dynamic Sitting Balance Ability Good Standing Balance and Reactions Static Standing Balance Ability Fair Dynamic Standing Balance Ability Poor Device Used FWW M5 PT-IP Objective Assessments Start: 07/23/21 12:12 Freq: NEEDED Status: Active Protocol: Document 07/23/21 09:45 AB (Rec: 07/23/21 12:29 AB [email or web address]) Orientation Orientation/Cognition Level of Alertness Alert Orientation Name,Place,Situation Language Function Ability No Deficits Noted Safety Awareness Decreased Safety Awareness Memory Description Short Term Impaired Gross Range of Motion Lower Extremity ROM Assessment Within Functional Limits Strength Lower Extremity Strength Assessment Bilaterally Impaired Comments Strength Comments LLE: 3+/5 RLE 4-/5 Sensation Assessment Sensation Gross Sensation WNL Muscle Tone Muscle Tone WNL Yes M6 PT-IP Treatment Start: 07/23/21 12:12 Freq: NEEDED Status: Active Protocol: Document 07/23/21 09:45 AB (Rec: 07/23/21 12:29 AB [email or web address]) Physical Therapy Treatment Education Education Provided Precautions,Weight Bearing Status,Post-Op Packet,Safety M7 PT-IP Assessment and Plan Start: 07/23/21 12:12 Freq: NEEDED Status: Active Protocol: Document 07/23/21 09:45 AB (Rec: 07/23/21 12:29 AB [email or web address]) PT Summary Assessment and Plan Potential Rehabilitation Potential Good Status of Condition at Evaluation Evolving Summary Impairments Pain,ROM,Strength,Balance, Coordination,Sensation,Tone, Cognition,Bed Mobility, Transfers,Gait,Activity Tolerance Assessment Summary pt requiring mod to max A with mobility using FWW and max cues with all tasks and unable to adhere to precautions without cues. pt needs 24/7 assist at this time and will need SNF rehab to improve overall strength and mobility. will continue to assess progress. Goals Bed Mobility Goal Contact Guard Assistance Transfer Goal Contact Guard Assistance,Front Wheeled Walker Gait Goal Contact Guard Assistance,Front Wheel Walker Gait Distance 200 Other Goals improve bed mobility SBA, transfers SBA using FWW, ambulation using FWW SBA 250 ft up/down 1 step using FWW SBA Days to Meet Goals 10 Frequency of Treatment Frequency Of Treatment Twice a Day Treatment Plan Physical Therapy Treatment Plan Bed Mobility Training,Transfer Training,Gait Training, Therapeutic Exercise,Balance Retraining,Post Op Education, Discharge Planning,Hot or Cold Pack,Neuromuscular Re-ed, Coordination Retraining,Manual Therapy Precautions Posterior Hip Precautions No Hip Flexion > 90 degrees,No Hip Internal Rotation,No Hip Adduction Weight Bearing Status Weight Bearing Status Weight Bear as Tolerated Allowed Weight Bearing Amount (enter % LLE WBAT or #) (%) Recommendations To Nursing Amount of Assist Needed 1 Person Assist Discharge Recommendations PT Discharge Recommendations SNF Rehab Transportation Needs at Discharge Wheelchair/Cabulance
--- NOTE | 2021-07-23 11:55 | CM.DANOTE ---
Addendum entered by RAYMUNDO Luna 07/23/21 15:57: ADD: Return call from [facility] and [facility], both can accept pt at d/c under COVID waiver. BF Original Note: Patient is an 85 yo female who was admitted on 07/22/21 for LTHA. Pt has [facility] and [facility] for insurance and her PCP is Dr. Mchugh. EMR was reviewed. Per Ortho PA, pt has underlying sciatica pain that is present but hip pain is moderate and anticipate possible need for SNF. Per PT, pt resides alone and currently requiring 1-2 PA for mobility and transfers and not able to follow the safety precautions and recommending SNF at this time. SW met bedside with pt and explained role and she confirms she lives in [place] alone in an apt and has EMILIANO CGs 5 days a week for 2hrs although one day she gets 5 hours but no one on the weekend. Pt states she has a local sister ritesh and cousin who live in [place] and they visit but do not provide assist. Pt's Dtr Laly lives in [place]. Pt denies any formal DPOA and SW encouraged pt to start reviewing DPOA pwk for future needs and pt agreeable. Pt states she has been to SNF before at [facility] (was Jessica when she went) after a surgery a few years ago and was hopeful for home but realizes currently she is not safe for return home alone with minimal assist during the week. SW discussed pt's current OBS Status and provided SNF Choice list and explained COVID waiver and pt agreeable with referrals to SNF's that accept COVID waiver so that she would not have to private pay for SNF. YANY called [facility] and [facility] and updated admissions on pt status and both accepting COVID waiver if pt meets criteria and both have female openings for likely d/c tomorrow 07/24/21. EMILY Ricnon kindly faxed [facility] and then [facility] reviewing as well. PASRR completed. YANY printed pt's COVID vax record and pt COVID vaccinated and double boosted. Plan: SW to follow closely for [facility] and [facility] review to determine if either can accept under COVID waiver for tomorrow if pt stable as she is OBS status. RAYMUNDO Luna Discharge Planning/Care Management CM Discharge Assessment Start: 07/23/21 11:50 Freq: Status: Active Protocol: Document 07/23/21 11:50 BF (Rec: 07/23/21 11:54 BF [id number]) Discharge Planning Assessment Assigned Jogger Operator RAYMUNDO Restrepo DPOA/Assigned Designee Name none, informally Dtr Laly in [place] Contact Information [phone] Advance Directives? No Advance Directives on File No History Provided By Patient,Medical Record Has Patient been admitted in last 30 No days? Prior Living Arrangements Apartment/Condo Household Members none Comment Has EMILIANO CG 5xweek for 2 hrs Type of transporation used prior to Relies on Others admit Independent with ADL's Yes: somewhat Is patient alert and oriented? Yes: some short term memory issues Needs Assistance With Managing Medications,Home Chores / Shopping Caregiver for Another No Community Services used prior to Physical Therapy admission: DME Already Rented / Owned FWW / Walker Patient/Family Preference Halfway Facility Barriers to Discharge Yes Comment OBS Status, but can utilize COVID waiver Discharge Plan Halfway Facility Transportation Arrangement Facility van Referrals Initiated Halfway If patient plan is SNF: Has PASSR been Yes completed? Medicare Choice List Provided Yes SNF/HH Preference [facility] or [facility] if they take COVID waiver Has Agency SNF been contacted Yes Whiteboard Updated in Patient Room with Yes name and ext. # of Jogger Operator Review Status In Process Please Provide Date Initial DC 07/23/21 Assessment Was Performed Next Review Type Continued Stay Review Pre-Anesthesia Assessment Start: 07/16/21 12:42 Freq: Status: Complete Protocol: Document 07/16/21 12:42 CAB (Rec: 07/16/21 14:02 CAB [id number]) Pre-Anesthesia Assessment PAC Comment Pt requests being called Uyen Sandoval not Uyen Preferred Name Uyen Sandoval Patient Information Reviewed Via Phone Assessment Assessment Completed With Patient Diagnostic Results BMP/CMP,CBC,EKG Comment Outside labs/ECG, COVID screen -needs to schedule Primary Care Provider Aranza Dukes Seen Specialist in Last 12 Months Yes Specialist Seen Orthopedist Comment Pain Clinic Primary Language Danish Mechanical Applications Engineer Required No Height 165.1 cm Weight 96.162 kg Body Mass Index (BMI) 35.2 Hearing Ability Normal Visual Assist Magnifying Glass Dentition Type Teeth, Natural Present,Teeth, Missing Barriers to Learning Visual Comment Multiple teeth missing Hx Anesthesia Reactions No Hx Family Anesthesia Reaction No Hx Malignant Hyperthermia No Hx Blood Transfusions No Anesthesia Review Requested No Critical Care Unit Nurse Yes: Pt requesting to go to a SNF-states no assistance after DC alcohol intake never Smoking Status Former smoker how long ago did patient quit smoking Quit 1985 Substance Use Type does not use Pain Present Pain Reported Musculoskeletal Symptoms Abnormal Gait,Back Pain, Difficulty Walking,Joint Pain, Muscle Spasms,Neck Pain History of Falling (Recent or History of Yes ) Patient is completely paralyzed or No completely immobile Prosthesis or Orthotic Device Front Wheel Walker Mental Status Oriented to own ability Is patient on oxygen? No Does patient have KAUR/SOB Yes: Chronic w/cough & wheeze Hx Sleep Apnea No Currently Taking a Beta Rebecca No Can You Climb a Flight of Stairs Without No SOB Hx Chest Pain No Hx SOB Yes: Chronic w/cough & wheeze Hx Syncope or Dizziness No Anti-Coagulant Therapy Yes: Has been taking ASA 325mg daily s/p RT EDDIE 15 Has a Spray Machine Loader No Cardiac Testing No Hx Pacemaker/ICD No Pacemaker Rep Required? No Diet Type At Home Regular dysphagia No Bladder Pattern Incontinent Urinary Catheter Present No Hx Urinary Self Catheterization No Diabetes No HgbA1C 5.9 Date 05/02/21 Patient No Lactating No Presence of External or Internal Medical Yes: RT hip & ankle, bilat eye Devices IOLs Have you had any close contact with No someone diagnosed with COVID-19? Received a COVID vaccine? Yes Received all doses? Yes Marital Status Lives With none Prior Living Arrangements Apartment/Condo Support System Caregiver Does the Patient Have Assistance After No: Pt states no assistance Surgery after surgery Patient Discharge Plan Description Halfway Facility/Rehab Comment Pt wants to go to a SNF @ [place], no available care at home after surgery Additional comment Pt advised 3 day length of stay per surgeon Feels Safe in Current Environment Yes Been Physically Hurt or Threatened By a No Person in Current Environment Do you have thoughts of harming yourself None or others? Are you currently considering suicide? No Do you have a plan to hurt yourself or No Plan others? Do You Have Any Spiritual Beliefs That No May Affect Your HC Choices? Do You Have Any Cultural Practices That No May Affect Your HC Choices? Comment Amish Who Can We Speak to About Patient's Care Family, friends Identifying Code for Release of Patient Declines to issue Information Health Care Proxy/Next of Kin Lois (daughter) Health Care Proxy Emergency Contact Name Mariel (daughter) Emergency Contact Advance Directives? No Power of Invisible Braces Orthodontist No PAC Instructions Durable medical equipment, Medications to take/avoid, Nasal antibiotic,No ETOH/ petroleum product on skin DOS, NPO,Pre-surgical wash,Sensory aids,Sturdy shoes/comfortable clothes,Do not bring valuables and remove jewelry
--- NOTE | 2021-07-23 12:04 | CM.DPNOTE ---
Emailed snf referral to [facility] per Kaye. Mckenzie Mcallister CM Assist.
--- NOTE | 2021-07-23 13:48 | PT.IPTN ---
Current Diagnoses Unilateral primary osteoarthritis, left hip (07/23/21) Pain in right hip (07/23/21) Surgery Performed Operation Date: 07/22/21 11:30 Actual Procedures p Total Hip Arthroplasty(Left) - Avril Sanchez MD Physical Therapy Treatment Note M2 PT-IP Current Condition Start: 07/23/21 12:12 Freq: NEEDED Status: Active Protocol: Document 07/23/21 09:45 AB (Rec: 07/23/21 12:29 AB [id number]) Physical Therapy Current Condition Current Condition Evaluation Date 07/23/21 Treatment Diagnosis s/p L EDDIE posterior approach; difficulty in walking Onset Date 07/22/21 M3 PT-IP Subjective Start: 07/23/21 12:12 Freq: NEEDED Status: Active Protocol: Document 07/23/21 13:27 KS (Rec: 07/23/21 14:13 KS [email or web address]) Subjective Physical Therapy Visit Type Type Treatment Note Visit Start Time 13:27 Visit Stop Time 13:48 Total Visit Minutes 21 Number of HATCHERY LABORER Visits 1 Physical Therapy Visit Comments Patient Comments agreeable to do PT M4 PT-IP Mobility and Gait Start: 07/23/21 12:12 Freq: NEEDED Status: Active Protocol: Document 07/23/21 13:27 KS (Rec: 07/23/21 14:13 KS [id number]) PT-Bed Mobility Assessment Sit to Supine Sit to Supine Maximum Assistance,1 Person Assistance PT-Transfer Assessment Sit to and From Stand Sit to and from Stand Moderate Assistance,2 Person Assistance,Use of Upper Extremities Equipment Transfer Assistive Device Gait Belt,Front Wheeled Walker Orthotic/Prosthetic Devices or Brace: No Transfers Transfer Destination Bed,Toilet Transfer Technique Pt ambulated Transfer Ability Level of Assist Moderate Assistance,Maximum Assistance,1 Person Assistance ,2 Person Assistance,Use of Upper Extremities Comments Mobility Comments Pt in chair and requesting to use toilet. Unable to get pt to stand w/ Max A x1, required Mod A x2 w/ assist from RN. Pt then ambulated ~12 ft to toilet w/ Mod A and max cues. Pt w/ poor safety awareness and needing frequent cues for sequencing and safety. Max A for sit<>Stand from toilet. Pt then ambulated to bed w/ FWW Mod A and cues for upright posture. Pt w/ difficulty following cues for FWW management and leg sequencing when backing up to bed to sit. Max A for sit<>sup. Pt too fatigued for further PT. Left in bed w/ all needs in reach. Gait Assessment Gait Gait Assistance Required: Moderate Assistance,Maximum Assistance,1 Person Assist Distance (Feet) 15 Able to Maintain Weight Bearing Status Yes During Gait Assistive Devices Assistive Device Gait Belt,Front Wheeled Walker Orthotic/Prosthetic Devices or Brace: No Gait Deviations General Gait Pattern Antalgic,Decreased Stride Length,Decreased Feet Clearance,Flexed Trunk,Step-to Gait Factors Limiting Gait Function Factors Limiting Gait Function Decreased Activity Tolerance, Decreased Strength,Difficulty Following Directions,Limited Range of Motion,Pain,Poor Balance,Poor Safety Awareness Comments Gait Comments Please refer to mobility section for details. PT-Balance Assessment Sitting Balance and Reactions Static Sitting Balance Ability Good Dynamic Sitting Balance Ability Good Standing Balance and Reactions Static Standing Balance Ability Fair Dynamic Standing Balance Ability Poor Device Used FWW M5 PT-IP Objective Assessments Start: 07/23/21 12:12 Freq: NEEDED Status: Active Protocol: Document 07/23/21 09:45 AB (Rec: 07/23/21 12:29 AB [email or web address]) Orientation Orientation/Cognition Level of Alertness Alert Orientation Name,Place,Situation Language Function Ability No Deficits Noted Safety Awareness Decreased Safety Awareness Memory Description Short Term Impaired Gross Range of Motion Lower Extremity ROM Assessment Within Functional Limits Strength Lower Extremity Strength Assessment Bilaterally Impaired Comments Strength Comments LLE: 3+/5 RLE 4-/5 Sensation Assessment Sensation Gross Sensation WNL Muscle Tone Muscle Tone WNL Yes M6 PT-IP Treatment Start: 07/23/21 12:12 Freq: NEEDED Status: Active Protocol: Document 07/23/21 13:27 KS (Rec: 07/23/21 14:13 PA [email or web address]) Physical Therapy Treatment Education Education Provided Precautions,Weight Bearing Status,Post-Op Packet,Safety M7 PT-IP Assessment and Plan Start: 07/23/21 12:12 Freq: NEEDED Status: Active Protocol: Document 07/23/21 13:27 KS (Rec: 07/23/21 14:13 KS [email or web address]) PT Summary Assessment and Plan Potential Rehabilitation Potential Good Status of Condition at Evaluation Evolving Summary Impairments Pain,ROM,Strength,Balance, Coordination,Sensation,Tone, Cognition,Bed Mobility, Transfers,Gait,Activity Tolerance Assessment Summary Pt requires Mod x2 to Max A x1 for sit<>stand w/ FWW and Mod /Max A w/ max cues for ambulation w/ FWW. Only able to tolerate short distances ambulation w/ FWW and has difficulty following cues and maintaining precautions. Pt will require SNF to improve strength and functional mobility. Goals Bed Mobility Goal Contact Guard Assistance Transfer Goal Contact Guard Assistance,Front Wheeled Walker Gait Goal Contact Guard Assistance,Front Wheel Walker Gait Distance 200 Other Goals improve bed mobility SBA, transfers SBA using FWW, ambulation using FWW SBA 250 ft up/down 1 step using FWW SBA Days to Meet Goals 10 Frequency of Treatment Frequency Of Treatment Twice a Day Treatment Plan Physical Therapy Treatment Plan Bed Mobility Training,Transfer Training,Gait Training, Therapeutic Exercise,Balance Retraining,Post Op Education, Discharge Planning,Hot or Cold Pack,Neuromuscular Re-ed, Coordination Retraining,Manual Therapy Precautions Posterior Hip Precautions No Hip Flexion > 90 degrees,No Hip Internal Rotation,No Hip Adduction Weight Bearing Status Weight Bearing Status Weight Bear as Tolerated Allowed Weight Bearing Amount (enter % LLE WBAT or #) (%) Recommendations To Nursing Amount of Assist Needed 1 Person Assist Discharge Recommendations PT Discharge Recommendations SNF Rehab Transportation Needs at Discharge Wheelchair/Cabulance
[2021-07-23] MEDS: dexAMETHasone 4 MG TABLET PO ×2 (15:06→21:19)
[2021-07-23] MEDS: MONTELUKAST 10 MG TABLET PO (20:55)
[2021-07-23] MEDS: LOSARTAN 50 MG TABLET 100 MG PO (20:55)
[2021-07-23] MEDS: SODIUM CHLORIDE 0.9% FLUSH 10 ML IV (20:56)
[2021-07-24] VITALS: RESP 15
[2021-07-24 04:00] VITALS: BP 146/65; PULSE 62; RESP 19; TEMP 36.4; O2SAT 96
[2021-07-24 08:00] VITALS: BP 155/67; PULSE 64; RESP 17; TEMP 36.7; O2SAT 95
[2021-07-24] MEDS: AMLODIPINE 5 MG TABLET 2.5 MG PO (08:37)
[2021-07-24] MEDS: ASPIRIN EC 81 MG TABLET PO (08:37)
[2021-07-24] MEDS: CHOLECALCIFEROL (VITAMIN D3) 1,000 UNIT TABLET 1000 UNIT PO (08:38)
[2021-07-24] MEDS: FLUTICASONE 120 SPRAY/16 GM SPRAY.SUSP NASAL (08:38)
[2021-07-24] MEDS: methocarbamoL 500 MG TABLET PO (08:38)
[2021-07-24] MEDS: DOCUSATE 100 MG CAPSULE PO (08:38)
[2021-07-24] MEDS: SODIUM CHLORIDE 0.9% FLUSH 10 ML IV (08:39)
--- NOTE | 2021-07-24 10:43 | PT.IPTN ---
Current Diagnoses Unilateral primary osteoarthritis, left hip (07/23/21) Pain in right hip (07/23/21) Surgery Performed Operation Date: 07/22/21 11:30 Actual Procedures p Total Hip Arthroplasty(Left) - Avril Sanchez MD Physical Therapy Treatment Note M2 PT-IP Current Condition Start: 07/23/21 12:12 Freq: NEEDED Status: Active Protocol: Document 07/23/21 09:45 AB (Rec: 07/23/21 12:29 AB [id number]) Physical Therapy Current Condition Current Condition Evaluation Date 07/23/21 Treatment Diagnosis s/p L EDDIE posterior approach; difficulty in walking Onset Date 07/22/21 M3 PT-IP Subjective Start: 07/23/21 12:12 Freq: NEEDED Status: Active Protocol: Document 07/24/21 10:28 KS (Rec: 07/24/21 11:15 KS [id number]) Subjective Physical Therapy Visit Type Type Treatment Note Visit Start Time 10:28 Visit Stop Time 10:43 Total Visit Minutes 15 Number of SPORTS ANNOUNCER Visits 2 Physical Therapy Visit Comments Patient Comments agreeable to do PT M4 PT-IP Mobility and Gait Start: 07/23/21 12:12 Freq: NEEDED Status: Active Protocol: Document 07/24/21 10:28 KS (Rec: 07/24/21 11:15 KS [id number]) PT-Bed Mobility Assessment Sit to Supine Sit to Supine Maximum Assistance,1 Person Assistance Scooting Scooting to Edge of Bed Contact Guard Assistance PT-Transfer Assessment Sit to and From Stand Sit to and from Stand Maximum Assistance,1 Person Assistance,Use of Upper Extremities Equipment Transfer Assistive Device Gait Belt,Front Wheeled Walker Orthotic/Prosthetic Devices or Brace: No Transfers Transfer Destination Bed Transfer Technique Pt ambulated Transfer Ability Level of Assist Maximum Assistance,1 Person Assistance,Use of Upper Extremities Comments Mobility Comments Pt in chair upon arrival and agreeable to ambulate. Pt CGA and cues for scooting EOC. Max A for sit<>Stand w/ FWW. Pt then ambulated ~35 ft in room w/ FWW Min/Mod A and cues for upright posture, knee extension. Pt reported fatigued and requested to return to bed. Max A for sit<> Sup for LE into bed. Pt left in bed w/ all needs in reach. Gait Assessment Gait Gait Assistance Required: Minimum Assistance,Moderate Assistance,1 Person Assist Distance (Feet) 35 Able to Maintain Weight Bearing Status Yes During Gait Assistive Devices Assistive Device Gait Belt,Front Wheeled Walker Orthotic/Prosthetic Devices or Brace: No Gait Deviations General Gait Pattern Antalgic,Decreased Stride Length,Decreased Feet Clearance,Flexed Trunk,Step-to Gait Factors Limiting Gait Function Factors Limiting Gait Function Decreased Activity Tolerance, Decreased Strength,Difficulty Following Directions,Limited Range of Motion,Pain,Poor Balance,Poor Safety Awareness Comments Gait Comments Please refer to mobility section for details. PT-Balance Assessment Sitting Balance and Reactions Static Sitting Balance Ability Good Dynamic Sitting Balance Ability Good Standing Balance and Reactions Static Standing Balance Ability Fair Dynamic Standing Balance Ability Fair Device Used FWW M5 PT-IP Objective Assessments Start: 07/23/21 12:12 Freq: NEEDED Status: Active Protocol: Document 07/23/21 09:45 AB (Rec: 07/23/21 12:29 AB [id number]) Orientation Orientation/Cognition Level of Alertness Alert Orientation Name,Place,Situation Language Function Ability No Deficits Noted Safety Awareness Decreased Safety Awareness Memory Description Short Term Impaired Gross Range of Motion Lower Extremity ROM Assessment Within Functional Limits Strength Lower Extremity Strength Assessment Bilaterally Impaired Comments Strength Comments LLE: 3+/5 RLE 4-/5 Sensation Assessment Sensation Gross Sensation WNL Muscle Tone Muscle Tone WNL Yes M6 PT-IP Treatment Start: 07/23/21 12:12 Freq: NEEDED Status: Active Protocol: Document 07/24/21 10:28 KS (Rec: 07/24/21 11:15 KS [id number]) Physical Therapy Treatment Education Education Provided Precautions,Weight Bearing Status,Safety M7 PT-IP Assessment and Plan Start: 07/23/21 12:12 Freq: NEEDED Status: Active Protocol: Document 07/24/21 10:28 KS (Rec: 07/24/21 11:15 KS [id number]) PT Summary Assessment and Plan Potential Rehabilitation Potential Good Status of Condition at Evaluation Evolving Summary Impairments Pain,ROM,Strength,Balance, Coordination,Sensation,Tone, Cognition,Bed Mobility, Transfers,Gait,Activity Tolerance Assessment Summary Pt able to tolerate further gait distance this AM, but still requires MAx A for sit<> stand and some bed mobility. She is limited by weakness and low activity tolerance and will require SNF to improve strength and functional mobility independence. Goals Bed Mobility Goal Contact Guard Assistance Transfer Goal Contact Guard Assistance,Front Wheeled Walker Gait Goal Contact Guard Assistance,Front Wheel Walker Gait Distance 200 Other Goals improve bed mobility SBA, transfers SBA using FWW, ambulation using FWW SBA 250 ft up/down 1 step using FWW SBA Days to Meet Goals 10 Frequency of Treatment Frequency Of Treatment Twice a Day Treatment Plan Physical Therapy Treatment Plan Bed Mobility Training,Transfer Training,Gait Training, Therapeutic Exercise,Balance Retraining,Post Op Education, Discharge Planning,Hot or Cold Pack,Neuromuscular Re-ed, Coordination Retraining,Manual Therapy Precautions Posterior Hip Precautions No Hip Flexion > 90 degrees,No Hip Internal Rotation,No Hip Adduction Weight Bearing Status Weight Bearing Status Weight Bear as Tolerated Allowed Weight Bearing Amount (enter % LLE WBAT or #) (%) Recommendations To Nursing Amount of Assist Needed 1 Person Assist Discharge Recommendations PT Discharge Recommendations SNF Rehab Transportation Needs at Discharge Wheelchair/Cabulance
[2021-07-24 11:05] LABS: COVID19 -Nasal RAPID Negative (Negative)
--- NOTE | 2021-07-24 11:32 | PM.DS.1 ---
History of Present Illness History of Present Illness Date Patient Seen: 07/24/21 Time Patient Seen: 11:33 Chief complaint: Left hip pain s/p left EDDIE Narrative: Patient is complaining of [id number] left hip pain this morning. Her sciatica is resolving with the dexamethasone. Patient notes she has bilateral chronic lower extremity edema. She is planning on being discharged to a correction facility today. Discharge Providers Provider Date of admission: 07/23/21 11:29 Discharge Date: 07/24/21 Primary care physician: Aranza Dukes PA-C Consults: 07/16/21 14:02 Consult to Electronic Engineering Technician Routine Comment: Pt states no assistance at home after DC 07/22/21 09:24 Consult to Anesthesiology Routine Comment: Consulting Provider: Anesthesiologist Reason for consultation: Regional block for post operative pain control 07/22/21 14:13 Consult to Discharge Planning Routine Comment: Consult to Physical Therapy Evaluate & Treat Comment: Physician Instructions: post op EDDIE protocol Consult to Respiratory Therapy Evaluate & Treat Comment: Physician Instructions: Evaluate and treat Discharge provider: Katie Andrew PA-C Summary Hospital Course Discharge Diagnosis: Left hip OA Hospital Course: Operative Date/Time/Diagnoses Date of procedure: 07/22/21 Time of procedure: 11:30 Procedure & Clinicians Procedure: Left total hip arthroplasty posterior approach Same procedure as scheduled: Yes Indications: The patient has had progressively worsening left hip pain with radiographic changes consistent with arthritis. Non-operative management has failed and the patient has requested total hip replacement. The risks, benefits and alternatives to surgery were discussed with the patient prior to proceeding. Risks discussed included, but were not limited to, failure to relieve pain, leg length discrepancy, dislocation, stiffness, infection, nerve damage, deep venous thrombosis, pulmonary embolism, stroke, coma, heart attack, permanent paralysis and , as well as the potential need for eventual revision of the prosthetic. Surgeon: Avril Sanchez Claims Account Specialist: Derrick Junior Anesthesia Type: General and Spinal Operative Notes Findings: Severe left hip osteoarthritis, adequate stability, soft bone Closure Type: primary Specimen(s): none sent Prosthetic devices, grafts, tissues, transplants, or devices: Sanchez and nephew size 16 synergy porous, size 56 R3 cup, neutral poly liner, 36 x -3 cobalt chrome head, one 6.5 mm screw Estimated Blood Loss (mL): 250 Blood products transfused: none Status at Discharge Cognitive/behavioral status at discharge: at baseline, oriented Functional status at discharge: uses cane/walker Overall status at discharge: patient is progressing back to baseline Exam Vital Signs (past 8 hours): - 07/24/21 04:00 07/24/21 08:00 07/24/21 08:00 Temperature 97.6 F 98.1 F Pulse Rate 62 64 Respiratory Rate 19 17 Blood Pressure 146/65 H 155/67 H Pulse Oximetry 96 95 Oxygen Delivery Method Room Air Oxygen Flow Rate 0 Oxygen Delivery Method Room Air Oxygen Flow Rate 0 Narrative Exam Narrative: Pleasant 85-year-old female, resting comfortably in bed, no acute distress. Dressing demonstrates some scant serosanguineous drainage, no surrounding erythema or induration. Bilateral lower extremity: Motor functions are grossly intact, sensation is grossly intact to light touch, there is 1 to 2+ distal edema bilaterally, calves are soft and nontender palpation. Objective Labs Result Diagrams: 07/23/21 04:00 Labs: Laboratory Results - last 24 hr 07/24/21 10:47 SARS-CoV-2 (PCR) Negative [facility] Medical History Anxiety Asthma Chronic cough Compression fracture Depression DJD of left shoulder Fibromyalgia GERD (gastroesophageal reflux disease) Gout Hemorrhoids Hiatal hernia HTN (hypertension) Hypothyroid Insomnia Lumbar compression fracture Lumbosacral radiculopathy at L4 Osteoarthritis Osteopenia Peripheral neuropathy Sciatica Scoliosis Spinal stenosis, multilevel Surgical History History of cataract removal with insertion of prosthetic lens History of 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 Maintain posterior hip precautions x6 weeks. Weightbearing as tolerated with front wheel walker -continue multimodal pain management -aspirin 81 mg b.i.d. x6 weeks for DVT prophylaxis -DC to SNF today Discharge Plan Discharge Plan Patient Disposition: SNF I certify the postop hospital correction care is medically necessary on a continuing basis for any conditions for which he/ she received care during this hospitalization.: Yes The receiving facility has agreed to accept transfer and provide medical treatment.: Yes Discharge orders & Medications Prescriptions: New oxycodone 10 mg Tablet 10 mg PO Q3HR PRN (Reason: Pain, Severe (7-10)) Qty: 42 0RF aspirin 81 mg Tablet,Delayed Release (Dr/Ec) 81 mg PO BID 42 Days Qty: 84 0RF Rx Instructions: Prevent blood clots docusate sodium 100 mg Capsule 100 mg PO BID PRN (Reason: constipation) Qty: 30 0RF ibuprofen 400 mg Tablet 400 mg PO Q6HR PRN (Reason: Pain/inflammation) Qty: 90 0RF polyethylene glycol 3350 17 gram Powder In Packet 17 g PO DAILY PRN (Reason: Constipation) Qty: 14 0RF acetaminophen 500 mg capsule 500 mg PO Q4H MDD Max 3000 mg per day PRN (Reason: fever or pain) Qty: 90 0RF hydroxyzine pamoate 25 mg Capsule 25 mg PO Q4HR PRN (Reason: Muscle spasm/pain/nausea) Qty: 60 0RF Continued methocarbamol 500 mg Tablet 500 mg PO BID amlodipine 2.5 mg Tablet 2.5 mg PO QAM telmisartan 80 mg Tablet 80 mg PO BEDTIME aspirin 325 mg tablet,delayed release (DR/EC) 325 mg PO DAILY calcitonin (salmon) 200 unit/actuation spray,non-aerosol 1 spray Intranasal (ALT) DAILY diphenhydramine HCl [Benadryl] 25 mg capsule 25 mg PO Q4H PRN (Reason: Seasonal allergies) montelukast 10 mg tablet 10 mg PO QPM fluticasone propionate [Flonase Allergy Relief] 50 mcg/actuation spray,suspension 2 spray NASAL BID vitamin B complex capsule 1 cap PO DAILY cholecalciferol (vitamin D3) 1,000 unit capsule 1,000 unit PO DAILY Discontinued oxycodone-acetaminophen [Percocet] 5-325 mg tablet 1 tab PO TID PRN (Reason: pain) Qty: 5 0RF Follow up/Referrals: Aranza Dukes PA-C [Primary Care Provider] - Avril Sanchez MD [Physician] - (10-14 days for postoperative visit) Diet/Activity/Treatments Diet: Diet as Tolerated Other treatments: Dressing/Wound care: -Keep Louie dressing in place until postoperative follow-up office visit. The Louie battery/pump should last for 7 days. Once that stops, please cut off the hose, cover the hole with a piece of dressing from the package, and leave the remaining dressing in place. -Okay to shower. Keep wound out of direct water stream. No soaking or submerging until all the scabs fall off (approximately 6 weeks). -No lotions, ointments, or scar creams directly to the incision until the wound is healed (4-6 weeks), -Please call the office if dressing becomes wet, soiled, or saturated. Activities: -Maintain posterior hip precautions x6 weeks. -Weight-bearing as tolerated. Use front wheeled walker, and progress to cane when safe. -Continue with home exercises as directed by your physical therapist. -Elevate ?toes above the nose if you have significant swelling in your lower leg. (A wedge pillow is easiest.) -Ice your incision as needed for pain/inflammation/swelling. Protect your skin with a folded pillowcase. Follow-up: -Follow-up with your surgeon or PA in the office in 10-14 days after surgery. -Follow-up with your surgeon 6 weeks postoperatively. Call the office if you have chest pain, shortness of breath, significant swelling that will not resolve with elevating, fever over 101?, significantly worsening pain. [facility]: [phone] Skin/Wound/Dressing Care Report to your healthcare provider any signs of infection, such as:: chills, fever, night sweats, unusual drainage and unusual redness [facility] Reason for rehabilitation: Post-operative therapy Rehab type: Physical therapy and Occupational therapy Visit Report/Discharge Packet Instructions: DI for Hip Replacement, DI for Prescription Opioid Use Stand Alone Forms: Surgery Discharge Discharge Data Primary Care Provider: Aranza Dukes Attending Provider: Avril Sanchez
[2021-07-24] MEDS: ACETAMINOPHEN 325 MG TABLET 650 MG PO (11:53)
[2021-07-24] MEDS: IBUPROFEN 400 MG TABLET PO (11:53)
[2021-07-24 12:00] VITALS: BP 123/60; PULSE 65; RESP 17; TEMP 36.9; O2SAT 97
--- NOTE | 2021-07-24 14:35 | CM.DPNOTE ---
DC Note DC order from Ortho PA placed, patient aware and agreeable to plan for DC to [facility] (COVID waiver used due to observation status) Faxed completed and signed med list, Rx and completed and signed PASRR to Talisha Pillai updated COVID PCR and calling nurse report. P/u scheduled via w/c for approx p/u of 1530 Plan: DC to [facility] via w/c today. COVID waiver NATA
[2021-07-24] MEDS: OXYCODONE IR 10 MG TABLET PO (15:23)
--- NOTE | 2021-07-24 15:34 | PC.NURSE ---
Pt dc'ing to SNF per provider order. IV removed. All belongings gathered and sent with pt at time of dc (1534). Report called to Ludmila (admit nurse at [facility]). Pt in no distress at time of dc.
== END 2021-07-24 15:35 ==
LOC: OR 12:32 → ICU 12:32
PROVIDERS: Admitting Provider Orthopaedic Surgery; PCP Physician Assistant; Referring Provider Orthopaedic Surgery; Visit Provider Orthopaedic Surgery
PROC: 0SRB0JZ Replacement of Left Hip Joint with Synthetic Substitute, Open Approach (ICD-10-PCS; CPT 27130; principal; 2021-07-22 11:30)
DX: M16.12 Unilateral primary osteoarthritis, left hip (principal); I10 Essential (primary) hypertension; J45.20 Mild intermittent asthma, uncomplicated
CPT/HCPCS: 27130; 36415; 72170; 73502; 85014; 85018; 87635; 97162; 97530; C1776; C9803; G0378; C9290; J0171; J0690; J2250; J2704; J3010

== ENCOUNTER 2023-09-05 03:42 | Inpatient (IN) | payer MEDICARE, MEDICAID, SELFPAY ==
[2021-07-22 14:43] VITALS: BMI 35.2
[2023-09-05] VITALS (64 sets, daily range): BP systolic 107–184; BP diastolic 53–140; PULSE 61–106; RESP 14–44; TEMP 36.8; O2SAT 88–99; BMI 33.3
--- NOTE | 2023-09-05 04:25 | ED.FALL ---
HPI - Fall <Justin Torres MD - Last Filed: 09/07/23 03:12> General Chief Complaint: Fall Stated Complaint: fall Time Seen by Provider: 09/05/23 03:59 Source: patient and EMS Mode of arrival: EMS History of Present Illness HPI Narrative: 87-year-old female with fall at home, complains of low back pain, as well as [id number]-right hip pain. She denies pain to her head, neck, chest, upper back, abdomen, pelvis. No pain to mid distal thighs, knees, foreleg, ankles, feet, toes. She does admit to aspirin use, but denies other blood thinner medication use. Denies any recent illness symptoms, fevers, cough, dysuria, frequency of urination, loose stools, black stools, red stools, nausea, vomiting. Related Data Home Medications Medication Instructions Recorded Confirmed aspirin 325 mg tablet,delayed 325 mg PO DAILY 12/02/17 09/05/23 release calcitonin (salmon) 200 1 spray intranasal (ALT) DAILY 12/02/17 09/05/23 unit/actuation nasal spray cholecalciferol (vitamin D3) 25 1,000 unit PO DAILY 12/02/17 09/05/23 mcg (1,000 unit) capsule diphenhydramine HCl 25 mg capsule 25 mg PO Q4H PRN Seasonal allergies 12/02/17 09/05/23 (Benadryl) fluticasone propionate 50 2 spray intranasal BID 12/02/17 09/05/23 mcg/actuation nasal spray,suspension (Flonase Allergy Relief) montelukast 10 mg tablet 10 mg PO QPM 12/02/17 09/05/23 vitamin B complex 1 cap PO DAILY 12/02/17 09/05/23 amlodipine 2.5 mg tablet 2.5 mg PO QAM 07/16/21 09/05/23 methocarbamol 500 mg tablet 500 mg PO BID 07/16/21 09/05/23 telmisartan 80 mg tablet 80 mg PO BEDTIME 07/16/21 09/05/23 oxycodone-acetaminophen 5 mg-325 1 tab PO BID PRN Pain, Severe 09/05/23 09/05/23 mg tablet vitamin B complex 1 tab PO DAILY 07/21/24 07/21/24 Previous Rx's Medication Instructions Recorded docusate sodium 100 mg capsule 100 mg PO BID PRN constipation #30 07/24/21 caps hydroxyzine pamoate 25 mg capsule 25 mg PO Q4HR PRN Muscle 07/24/21 spasm/pain/nausea #60 caps ibuprofen 400 mg tablet 400 mg PO Q6HR PRN 07/24/21 Pain/inflammation #90 tabs oxycodone 10 mg tablet 10 mg PO Q3HR PRN Pain, Severe 07/24/21 (7-10) #42 tabs polyethylene glycol 3350 17 gram 17 g PO DAILY PRN Constipation #14 07/24/21 oral powder packet ea Allergies Allergy/AdvReac Type Severity Reaction Status Date / Time adhesive tape Allergy Severe ITCHING Verified 09/06/23 09:49 pregabalin [From LYRICA] Allergy Severe Body Verified 09/06/23 09:49 swelling sertraline [SERTRALINE] Allergy Severe Body Verified 09/06/23 09:49 swelling gabapentin [GABAPENTIN] AdvReac Severe It was Verified 09/06/23 09:49 like I was not living morphine [MORPHINE] AdvReac Severe Nausea - Verified 09/06/23 09:49 Pt has not actually had it, but adamantly refuses Review of Systems <Justin Torres MD - Last Filed: 09/07/23 03:12> Review of Systems Narrative: see HPI Patient History <Justin Torres MD - Last Filed: 09/07/23 03:12> Medical History Insomnia Asthma Depression Sciatica Chronic cough Gout Hiatal hernia Osteopenia Peripheral neuropathy Compression fracture Anxiety Scoliosis Osteoarthritis Hemorrhoids Hypothyroid HTN (hypertension) GERD (gastroesophageal reflux disease) Fibromyalgia DJD of left shoulder Lumbar compression fracture Lumbosacral radiculopathy at L4 Spinal stenosis, multilevel Surgical History Status post epidural steroid injection History of total right hip arthroplasty (08/09/14) Status post ORIF of fracture of ankle History of cataract removal with insertion of prosthetic lens Status post hysterectomy Family History Brother Age: 94 Heart disease Brother Age: 89 High cholesterol Father Heart disease Hypertension Mother Hypertension Sister Heart disease Social History household members: none Smoking Status: Former smoker alcohol intake: current Smoking Status: Former smoker alcohol intake frequency: holidays/special occasions only Substance Use Type: does not use Exam <Justin Torres MD - Last Filed: 09/07/23 03:12> Narrative Exam Narrative: GENERAL: Well-developed patient, in mild distress. HEAD: Atraumatic. Normocephalic. EYES: Pupils equal round and reactive. Extraocular motions intact. No scleral icterus. No injection or drainage. ENT: Nose without bleeding, purulent drainage. Throat without erythema, tonsillar hypertrophy or exudate. Airway patent. NECK: Trachea midline. Non tender CARDIOVASCULAR: Regular rate and rhythm without murmurs, gallops, or rubs. RESPIRATORY: Clear to auscultation. Breath sounds equal bilaterally. No wheezes, rales, or rhonchi. GASTROINTESTINAL: Abdomen soft, non-tender, nondistended. No discomfort on palpation anterior superior iliac spines, no discomfort on palpation symphysis pubis EXTREMITIES: No edema or joint tenderness. No limb length discrepancy, some tenderness left greater trochanteric region, some tenderness left anterior hip. Some tenderness right anterior hip but not in trochanteric region, no suprapubic discomfort. No discomfort on palpation anterior superior iliac spines. BACK: Nontender without deformity or crepitance. No flank tenderness. NEURO: AOx3. Grossly nonfocal motor exam, limited by lower extremity weakness, straight leg raise right or left pending imaging results SKIN: No rash or erythema of visible areas Initial Vital Signs Initial Vital Signs: Vital Signs Pulse Rate 74 09/05/23 03:44 Pulse Oximetry 88 L 09/05/23 03:44 <Essie Elise DO - Last Filed: 09/06/23 18:45> Initial Vital Signs Initial Vital Signs: Vital Signs Pulse Rate 74 09/05/23 03:44 Pulse Oximetry 88 L 09/05/23 03:44 Course <Justin Torres MD - Last Filed: 09/07/23 03:12> Orders Ordered: Acetaminophen (Acetaminophen 325 Mg Tablet) 650 mg PO Q6H PRN PRN Reason: Fever/Mild Pain (1-3) Hydrocodone Bitart/Acetaminophen (Hydrocodone/Acet 5/325 Tablet) 1 tab PO Q4H PRN PRN Reason: Pain, Moderate (4-6) Last Admin: 09/06/23 15:14 Dose: 1 tab Documented By: LORENZO Amlodipine Besylate (Amlodipine 5 Mg Tablet) 2.5 mg PO BID [facility] Last Admin: 09/06/23 21:11 Dose: Not Given Documented By: Admin: 09/06/23 08:38 Dose: 2.5 mg Documented By: Admin: 09/05/23 21:08 Dose: 2.5 mg Documented By: ARJUN Aspirin (Aspirin Ec 325 Mg Tablet) 325 mg PO BID [facility] Last Admin: 09/06/23 21:16 Dose: 325 mg Documented By: Admin: 09/06/23 08:35 Dose: 325 mg Documented By: Admin: 09/05/23 22:25 Dose: 325 mg Documented By: ARJUN Calcitonin Sasabe (Calcitonin,Sasabe, Nasal [place]) 1 sprays NASAL DAILY [facility] Last Admin: 09/06/23 08:38 Dose: 1 sprays Documented By: DANIELLA Calcium Carbonate (Calcium Carbonate 500 Mg Tab) 1,000 mg PO Q4HR PRN PRN Reason: Dyspepsia Docusate Sodium (Docusate 100 Mg Capsule) 100 mg PO DAILY PRN PRN Reason: Constipation Last Admin: 09/05/23 21:08 Dose: 100 mg Documented By: ARJUN Docusate Sodium (Docusate 100 Mg Capsule) 100 mg PO BID [facility] Last Admin: 09/06/23 21:16 Dose: 100 mg Documented By: GIOVANI Fluticasone Propionate (Fluticasone 120 [place]/16 Gm [place].Susp) 2 spray NASAL DAILY [facility] Last Admin: 09/06/23 11:37 Dose: 2 spray Documented By: JONNA Furosemide (Furosemide 40 Mg/4 Ml Vial) 40 mg IV Q12H [facility] Last Admin: 09/06/23 17:24 Dose: 40 mg Documented By: LORENZO Heparin Sodium (Porcine) (Heparin 5,000 Unit/Ml Vial) 5,000 unit SUBCUT BID [facility] Last Admin: 09/06/23 21:16 Dose: 5,000 unit Documented By: Admin: 09/06/23 13:09 Dose: 5,000 unit Documented By: LORENZO Magnesium Hydroxide (Magnesium Hydroxide 30 Ml Udc) 30 ml PO DAILY PRN PRN Reason: Constipation Montelukast Sodium (Montelukast 10 Mg Tablet) 10 mg PO DAILY [facility] Last Admin: 09/06/23 09:45 Dose: 10 mg Documented By: Admin: 09/05/23 21:09 Dose: 10 mg Documented By: ARJUN Naloxone HCl (Naloxone 0.4 Mg/Ml Vial) 0.2 mg IV Q2MIN PRN PRN Reason: Opiate Reversal Ondansetron HCl (Ondansetron 4 Mg/2 Ml Inj) 4 mg IV Q8HR PRN PRN Reason: Nausea And Vomiting Oxycodone HCl (Oxycodone Ir 5 Mg Tablet) 5 mg PO Q4HR PRN PRN Reason: Pain, Moderate (4-6) Last Admin: 09/06/23 13:09 Dose: 5 mg Documented By: Admin: 09/06/23 07:00 Dose: 5 mg Documented By: Admin: 09/05/23 22:25 Dose: 5 mg Documented By: Admin: 09/05/23 18:29 Dose: 5 mg Documented By: Admin: 09/05/23 14:20 Dose: 5 mg Documented By: BAKARI Polyethylene Glycol (Polyethylene Glycol 3350 17 Gm Powd.Pack) 17 gm PO DAILY PRN PRN Reason: Constipation Vitamin D (Cholecalciferol (Vitamin D3) 1,000 Unit Tablet) 1,000 unit PO DAILY [facility] Last Admin: 09/06/23 21:16 Dose: 1,000 unit Documented By: GIOVANI Discontinued Medications Acetaminophen (Acetaminophen 325 Mg Tablet) 975 mg PO NOW ONE Stop: 09/05/23 14:08 Last Admin: 09/05/23 15:16 Dose: Not Given Documented By: ARJUN Aspirin (Aspirin Ec 81 Mg Tablet) 81 mg PO BID [facility] Last Admin: 09/05/23 23:47 Dose: Not Given Documented By: Fluticasone Propionate (Fluticasone 120 [place]/16 Gm [place].Susp) 2 spray NASAL NOW ONE Stop: 09/05/23 09:01 Last Admin: 09/05/23 15:16 Dose: Not Given Documented By: ARJUN Furosemide (Furosemide 40 Mg/4 Ml Vial) 40 mg IV NOW ONE Stop: 09/06/23 11:47 Last Admin: 09/06/23 11:55 Dose: 40 mg Documented By: JONNA Furosemide (Furosemide 40 Mg/4 Ml Vial) 40 mg IV Q12H [facility] Last Admin: 09/06/23 18:09 Dose: Not Given Documented By: LORENZO Hydromorphone HCl (Hydromorphone 0.5 Mg Inj) 0.5 mg IV NOW ONE Stop: 09/05/23 04:43 Last Admin: 09/05/23 06:15 Dose: Not Given Documented By: AB Sodium Chloride (Normal Saline 0.9%) 1,000 mls @ 125 mls/hr IV CONT [facility] Last Infusion: 09/05/23 20:31 Dose: Infused Documented By: Admin: 09/05/23 11:00 Dose: 125 mls/hr Documented By: RB Oxycodone/Acetaminophen (Oxycodone/Acetaminophen 5/325 Tablet) 1 tab PO NOW ONE Stop: 09/05/23 08:29 Last Admin: 09/05/23 08:34 Dose: 1 tab Documented By: KASSANDRA Vital Signs Vital signs: Vital Signs - 8 hr 09/06/23 11:00 09/06/23 11:14 09/06/23 11:15 Pulse Rate 77 Respiratory Rate Pulse Oximetry 97 94 90 L Oxygen Delivery Method Nasal Cannula Room Air Oxygen Flow Rate 2 09/06/23 11:16 09/06/23 11:30 Pulse Rate 73 Respiratory Rate 28 H Pulse Oximetry 92 97 Oxygen Delivery Method Nasal Cannula Oxygen Flow Rate 2 <Essie Elise DO - Last Filed: 09/06/23 18:45> Orders Ordered: Acetaminophen (Acetaminophen 325 Mg Tablet) 650 mg PO Q6H PRN PRN Reason: Fever/Mild Pain (1-3) Hydrocodone Bitart/Acetaminophen (Hydrocodone/Acet 5/325 Tablet) 1 tab PO Q4H PRN PRN Reason: Pain, Moderate (4-6) Last Admin: 09/06/23 15:14 Dose: 1 tab Documented By: LORENZO Amlodipine Besylate (Amlodipine 5 Mg Tablet) 2.5 mg PO BID [facility] Last Admin: 09/06/23 21:11 Dose: Not Given Documented By: Admin: 09/06/23 08:38 Dose: 2.5 mg Documented By: Admin: 09/05/23 21:08 Dose: 2.5 mg Documented By: ARJUN Aspirin (Aspirin Ec 325 Mg Tablet) 325 mg PO BID [facility] Last Admin: 09/06/23 21:16 Dose: 325 mg Documented By: Admin: 09/06/23 08:35 Dose: 325 mg Documented By: Admin: 09/05/23 22:25 Dose: 325 mg Documented By: ARJUN Calcitonin [place] (Calcitonin,Sasabe, Nasal [place]) 1 sprays NASAL DAILY [facility] Last Admin: 09/06/23 08:38 Dose: 1 sprays Documented By: DANIELLA Calcium Carbonate (Calcium Carbonate 500 Mg Tab) 1,000 mg PO Q4HR PRN PRN Reason: Dyspepsia Docusate Sodium (Docusate 100 Mg Capsule) 100 mg PO DAILY PRN PRN Reason: Constipation Last Admin: 09/05/23 21:08 Dose: 100 mg Documented By: ARJUN Docusate Sodium (Docusate 100 Mg Capsule) 100 mg PO BID [facility] Last Admin: 09/06/23 21:16 Dose: 100 mg Documented By: GIOVANI Fluticasone Propionate (Fluticasone 120 [place]/16 Gm [place].Susp) 2 spray NASAL DAILY [facility] Last Admin: 09/06/23 11:37 Dose: 2 spray Documented By: JONNA Furosemide (Furosemide 40 Mg/4 Ml Vial) 40 mg IV Q12H [facility] Last Admin: 09/06/23 17:24 Dose: 40 mg Documented By: LORENZO Heparin Sodium (Porcine) (Heparin 5,000 Unit/Ml Vial) 5,000 unit SUBCUT BID [facility] Last Admin: 09/06/23 21:16 Dose: 5,000 unit Documented By: Admin: 09/06/23 13:09 Dose: 5,000 unit Documented By: LORENZO Magnesium Hydroxide (Magnesium Hydroxide 30 Ml Udc) 30 ml PO DAILY PRN PRN Reason: Constipation Montelukast Sodium (Montelukast 10 Mg Tablet) 10 mg PO DAILY [facility] Last Admin: 09/06/23 09:45 Dose: 10 mg Documented By: Admin: 09/05/23 21:09 Dose: 10 mg Documented By: ARJUN Naloxone HCl (Naloxone 0.4 Mg/Ml Vial) 0.2 mg IV Q2MIN PRN PRN Reason: Opiate Reversal Ondansetron HCl (Ondansetron 4 Mg/2 Ml Inj) 4 mg IV Q8HR PRN PRN Reason: Nausea And Vomiting Oxycodone HCl (Oxycodone Ir 5 Mg Tablet) 5 mg PO Q4HR PRN PRN Reason: Pain, Moderate (4-6) Last Admin: 09/06/23 13:09 Dose: 5 mg Documented By: Admin: 09/06/23 07:00 Dose: 5 mg Documented By: Admin: 09/05/23 22:25 Dose: 5 mg Documented By: Admin: 09/05/23 18:29 Dose: 5 mg Documented By: Admin: 09/05/23 14:20 Dose: 5 mg Documented By: BAKARI Polyethylene Glycol (Polyethylene Glycol 3350 17 Gm Powd.Pack) 17 gm PO DAILY PRN PRN Reason: Constipation Vitamin D (Cholecalciferol (Vitamin D3) 1,000 Unit Tablet) 1,000 unit PO DAILY [facility] Last Admin: 09/06/23 21:16 Dose: 1,000 unit Documented By: GIOVANI Discontinued Medications Acetaminophen (Acetaminophen 325 Mg Tablet) 975 mg PO NOW ONE Stop: 09/05/23 14:08 Last Admin: 09/05/23 15:16 Dose: Not Given Documented By: ARJUN Aspirin (Aspirin Ec 81 Mg Tablet) 81 mg PO BID [facility] Last Admin: 09/05/23 23:47 Dose: Not Given Documented By: Fluticasone Propionate (Fluticasone 120 [place]/16 Gm [place].Susp) 2 spray NASAL NOW ONE Stop: 09/05/23 09:01 Last Admin: 09/05/23 15:16 Dose: Not Given Documented By: ARJUN Furosemide (Furosemide 40 Mg/4 Ml Vial) 40 mg IV NOW ONE Stop: 09/06/23 11:47 Last Admin: 09/06/23 11:55 Dose: 40 mg Documented By: JONNA Furosemide (Furosemide 40 Mg/4 Ml Vial) 40 mg IV Q12H [facility] Last Admin: 09/06/23 18:09 Dose: Not Given Documented By: LORENZO Hydromorphone HCl (Hydromorphone 0.5 Mg Inj) 0.5 mg IV NOW ONE Stop: 09/05/23 04:43 Last Admin: 09/05/23 06:15 Dose: Not Given Documented By: Sodium Chloride (Normal Saline 0.9%) 1,000 mls @ 125 mls/hr IV CONT [facility] Last Infusion: 09/05/23 20:31 Dose: Infused Documented By: Admin: 09/05/23 11:00 Dose: 125 mls/hr Documented By: RB Oxycodone/Acetaminophen (Oxycodone/Acetaminophen 5/325 Tablet) 1 tab PO NOW ONE Stop: 09/05/23 08:29 Last Admin: 09/05/23 08:34 Dose: 1 tab Documented By: KASSANDRA Vital Signs Vital signs: Vital Signs - 8 hr 09/06/23 11:00 09/06/23 11:14 09/06/23 11:15 Pulse Rate 77 Respiratory Rate Pulse Oximetry 97 94 90 L Oxygen Delivery Method Nasal Cannula Room Air Oxygen Flow Rate 2 09/06/23 11:16 09/06/23 11:30 Pulse Rate 73 Respiratory Rate 28 H Pulse Oximetry 92 97 Oxygen Delivery Method Nasal Cannula Oxygen Flow Rate 2 MDM - Fall <Justin Torres MD - Last Filed: 09/07/23 03:12> Lab Data Attestation: I reviewed the patient's lab results. 09/06/23 09:24 09/06/23 09:24 Labs: Lab Results 09/05/23 09/05/23 09/06/23 Range/Units 10:13 18:09 09:24 WBC 5.9 6.0 (4.5-11.0) X10^3/uL RBC 3.93 L 3.88 L (4.0-5.2) X10^6/uL Hgb 12.4 12.1 (12.0-16.0) g/dL Hct 36.1 35.7 L (36-46) % MCV 92.1 92.1 (80-100) fL MCH 31.6 31.2 (26-34) PG MCHC 34.3 33.9 (30-36) % RDW 13.6 13.4 (11.6-14.8) % Plt Count 181 178 (150-400) X10^3/uL Neut % (Auto) 66.4 68.9 (50-75) % Lymph % (Auto) 21.5 L 20.0 L (25-40) % [place] % (Auto) 10.5 8.5 (3-14) % Eos % (Auto) 0.9 L 2.0 (2-4) % Baso % (Auto) 0.7 0.6 (0-2) % Neut # (Auto) 3900 4100 (4800-9416) /uL Lymph # (Auto) 1300 1200 (0172-2716) /uL [place] # (Auto) 600 500 (0-900) /uL Eos # (Auto) 0 100 (0-450) /uL Baso # (Auto) 0 0 (0-100) /uL D-Dimer 1735 H (<500) ng/ml Sodium 134 L 136 L (137-145) mmol/L Potassium 3.5 3.4 (3.4-5.1) mmol/L Chloride 101 104 (98-107) mmol/L Carbon Dioxide 26 26 (22-32) mmol/L BUN 29 H 20 H (7-17) mg/dL Creatinine 1.16 H 0.99 (0.52-1.04) mg/dL Estimated GFR 46 L 55 L (>60) mL/min BUN/Creatinine Ratio 25.0 H 20.2 (6-22) Glucose 123 H 148 H (80-110) mg/dL Calcium 8.7 8.4 (8.4-10.2) mg/dL Total Bilirubin 1.3 0.9 (0.2-1.3) mg/dL AST 27 27 (14-36) IU/L ALT 15 14 (<35) IU/L Alkaline Phosphatase 102 91 (38-126) U/L Total Creatine Kinase 157 H (30-135) U/L Troponin I 0.013 (0.01-0.034) ng/mL NT-Pro-B Natriuret Pep 1920 H (<450) pg/mL Total Protein 6.8 6.2 L (6.3-8.2) g/dL Albumin 4.0 3.5 (3.5-5.0) g/dL Globulin 2.8 2.7 (1.7-4.1) g/dL Albumin/Globulin Ratio 1.4 1.3 (1.0-2.8) Chlamy pneumoniae PCR Not detected (Not Detect) Adenovirus (PCR) Not detected (Not Detect) B.parapertussis DNA PCR Not detected (Not Detecte) Coronavirus OC43 (PCR) Not detected (Not Detect) Coronavirus HKU1 (PCR) Not detected (Not Detect) Coronavirus 229E (PCR) Not detected (Not Detect) SARS-CoV-2 (PCR) Not detected (Not Detecte) Coronavirus NL63 (PCR) Not detected (Not Detect) Human Metapneumovir PCR Not detected (Not Detect) Influenza Type A (PCR) Not detected (Not Detect) Influenza Type B (PCR) Not detected (Not Detect) M. pneumoniae (PCR) Not detected (Not Detect) Parainfluenza 1 (PCR) Not detected (Not Detect) Parainfluenza 2 (PCR) Not detected (Not Detect) Parainfluenza 3 (PCR) Not detected (Not Detect) Parainfluenza 4 (PCR) Not detected (Not Detect) RSV (PCR) Not detected (Not Detect) Entero/Rhino (PCR) Not detected (Not Detect) Urine Dip Bedside Urine Glucose Negative Bedside Urine Bilirubin - Negative Bedside Urine Ketone - Negative Urine Specific [place] 1.025 Bedside Urine Occult Blood - Negative Bedside Urine pH 6.0 Bedside Urine Protein - Negative Bedside Urine Urobilinogen - Negative Bedside Urine Nitrite - Negative Bedside Urine Leukocytes - Negative Esterase MDM Narrative Medical decision making narrative: 87-year-old female with ground level fall, bilateral hip pain, left buttock pain, low back pain. CT abdomen and pelvis with bone windows requested. IV Dilaudid dose. Keep NPO for now. 0700, imaging reports pending, signed out to Dr Gosia Elise- patient signed out to me by Dr. Torres awaiting CT results. Patient reports that she chronically has back pain she lives alone gets around by walker. She fell a couple days ago and since then has had increasing back pain. No numbness or tingling in her legs. CT has been reviewed she has a chronic T12-L1 compression fracture which remains unchanged. On exam she is tender but able to lift her lower extremities. She does take Percocet regularly which she was given this morning. she was also given a dose of Dilaudid. Patient attempted ambulation trial but failed per nursing needed significant assistance. CT of the patient is evaluation ordered. Blood work was ordered. CBC shows no significant leukocytosis or anemia, CMP does show sodium 134 potassium 3.5 chloride 101 carbon dioxide 16 BUN 29 creatinine 1.1, otherwise normal Brian, 09/05/2023, 6:00 p.m. Sign-out from Dr. Elise, patient still here from previous encounter yesterday. CT scans showed no fractures, however patient was unable to ambulate. Labs sent, unremarkable, urinalysis negative. We will consult social services designee and physical therapy, unsafe discharge, might require chcf placement. Assumed interim care. Brian, 09/06/23, 7:00am. Still awaiting possible chcf placement, signed out again to Dr. Elise. 09/06/23 Dr. Elise Patient seen evaluated myself this morning noted to be slightly hypoxic overnight possibly due to medication RANULFO consider pulmonary embolism and congestive heart failure. Repeat blood work this morning, does show elevated BNP 1920 troponin 0.013 no other abnormalities, electrolytes and creatinine stable and actually creatinine has improved from 1.16-->0.9. CT angio was done to rule out pulmonary embolism after boarding in the emergency department, no evidence of PE, but there is small right pleural effusion with minimal right basilar atelectasis, chest x-ray did not show any acute cardiopulmonary process Continues to not have any evidence of infection respiratory panel is negative However she definitely is requiring 1-2 L of oxygen PT evaluated patient definitely requiring 1-2 patient assist IV fluids have been stopped she is given Lasix Dr. Borjas updated on patient's symptoms test results agrees with observation <Essie Elise, - Last Filed: 09/06/23 18:45> Lab Data Labs: Lab Results 09/05/23 09/05/23 09/06/23 Range/Units 10:13 18:09 09:24 WBC 5.9 6.0 (4.5-11.0) X10^3/uL RBC 3.93 L 3.88 L (4.0-5.2) X10^6/uL Hgb 12.4 12.1 (12.0-16.0) g/dL Hct 36.1 35.7 L (36-46) % MCV 92.1 92.1 (80-100) fL MCH 31.6 31.2 (26-34) PG MCHC 34.3 33.9 (30-36) % RDW 13.6 13.4 (11.6-14.8) % Plt Count 181 178 (150-400) X10^3/uL Neut % (Auto) 66.4 68.9 (50-75) % Lymph % (Auto) 21.5 L 20.0 L (25-40) % [place] % (Auto) 10.5 8.5 (3-14) % Eos % (Auto) 0.9 L 2.0 (2-4) % Baso % (Auto) 0.7 0.6 (0-2) % Neut # (Auto) 3900 4100 (8019-3039) /uL Lymph # (Auto) 1300 1200 (6227-4109) /uL [place] # (Auto) 600 500 (0-900) /uL Eos # (Auto) 0 100 (0-450) /uL Baso # (Auto) 0 0 (0-100) /uL D-Dimer 1735 H (<500) ng/ml Sodium 134 L 136 L (137-145) mmol/L Potassium 3.5 3.4 (3.4-5.1) mmol/L Chloride 101 104 (98-107) mmol/L Carbon Dioxide 26 26 (22-32) mmol/L BUN 29 H 20 H (7-17) mg/dL Creatinine 1.16 H 0.99 (0.52-1.04) mg/dL Estimated GFR 46 L 55 L (>60) mL/min BUN/Creatinine Ratio 25.0 H 20.2 (6-22) Glucose 123 H 148 H (80-110) mg/dL Calcium 8.7 8.4 (8.4-10.2) mg/dL Total Bilirubin 1.3 0.9 (0.2-1.3) mg/dL AST 27 27 (14-36) IU/L ALT 15 14 (<35) IU/L Alkaline Phosphatase 102 91 (38-126) U/L Total Creatine Kinase 157 H (30-135) U/L Troponin I 0.013 (0.01-0.034) ng/mL NT-Pro-B Natriuret Pep 1920 H (<450) pg/mL Total Protein 6.8 6.2 L (6.3-8.2) g/dL Albumin 4.0 3.5 (3.5-5.0) g/dL Globulin 2.8 2.7 (1.7-4.1) g/dL Albumin/Globulin Ratio 1.4 1.3 (1.0-2.8) Chlamy pneumoniae PCR Not detected (Not Detect) Adenovirus (PCR) Not detected (Not Detect) B.parapertussis DNA PCR Not detected (Not Detecte) Coronavirus OC43 (PCR) Not detected (Not Detect) Coronavirus HKU1 (PCR) Not detected (Not Detect) Coronavirus 229E (PCR) Not detected (Not Detect) SARS-CoV-2 (PCR) Not detected (Not Detecte) Coronavirus NL63 (PCR) Not detected (Not Detect) Human Metapneumovir PCR Not detected (Not Detect) Influenza Type A (PCR) Not detected (Not Detect) Influenza Type B (PCR) Not detected (Not Detect) M. pneumoniae (PCR) Not detected (Not Detect) Parainfluenza 1 (PCR) Not detected (Not Detect) Parainfluenza 2 (PCR) Not detected (Not Detect) Parainfluenza 3 (PCR) Not detected (Not Detect) Parainfluenza 4 (PCR) Not detected (Not Detect) RSV (PCR) Not detected (Not Detect) Entero/Rhino (PCR) Not detected (Not Detect) Urine Dip Bedside Urine Glucose Negative Bedside Urine Bilirubin - Negative Bedside Urine Ketone - Negative Urine Specific [place] 1.025 Bedside Urine Occult Blood - Negative Bedside Urine pH 6.0 Bedside Urine Protein - Negative Bedside Urine Urobilinogen - Negative Bedside Urine Nitrite - Negative Bedside Urine Leukocytes - Negative Esterase Imaging Data CT scan - abdomen/pelvis: Radiologist's Impression: PROCEDURE: CT ABDOMEN PELVIS WO CON INDICATIONS: R and L hip pain after fall, L buttock pain TECHNIQUE: Axial sections were acquired from the lung bases to the pubic symphysis. Coronal and sagittal reformats were performed. For radiation dose reduction, the following was used: automated exposure control, adjustment of mA and/or kV according to patient size. COMPARISON: None. FINDINGS: Image quality: Streak metal artifact from bilateral hip arthroplasty limits evaluation of the pelvis and surrounding soft tissues.. Lower Chest: Subsegmental atelectasis. Coronary artery calcifications URINARY: Right Kidney: No stones or hydronephrosis. Right Ureter: No hydroureter. Left Kidney: No stones or hydronephrosis. Left Ureter: No hydroureter. Bladder: Streak metal artifact and nondistention limits evaluation. No calcified stones. ABDOMEN: Liver: No contour-deforming solid mass. Gallbladder: Small layering calcifications. No wall thickening or pericholecystic fluid to suggest acute cholecystitis. Biliary ducts: No biliary dilation. Pancreas: No ductal dilation. Spleen: Size is within normal limits. Adrenal Glands: No adrenal nodules. Stomach and Bowel: Normal colonic caliber, without significant wall thickening. Peritoneum: No abnormal intraperitoneal fluid. No free air. Ventral Wall: No hernia. Abdominal Nodes: No enlarged retroperitoneal or mesenteric lymph nodes. Vessels: Aorta and inferior vena cava are normal in size. PELVIS: Pelvic Organs: Unremarkable. Pelvic Nodes: Unremarkable. Miscellaneous: No inguinal hernias are seen. Bones: Bones are demineralized. Status post bilateral hip arthroplasty with prosthetic elements in appropriate position. No acute fracture identified. Chronic compression deformities of L1-L5, progressed since 04/16/2021. Additional compression deformities T10 through T12, progressed since 04/16/2021. IMPRESSION: No acute process in the abdomen or pelvis. Chronic compression deformities of L1-T12, progressed since 04/16/2021. Status post bilateral hip arthroplasty. No acute fracture identified, however bones are demineralized and adjacent streak artifact limits evaluation. Approved by: Karena Jarrell M.D.,Ph.D. on 09/05/2023 at 8:14 MDM Narrative Medical decision making narrative: 87-year-old female with ground level fall, bilateral hip pain, left buttock pain, low back pain. CT abdomen and pelvis with bone windows requested. IV Dilaudid dose. Keep NPO for now. 0700, imaging reports pending, signed out to Dr Gosia Elise- patient signed out to me by Dr. Torres awaiting CT results. Patient reports that she chronically has back pain she lives alone gets around by walker. She fell a couple days ago and since then has had increasing back pain. No numbness or tingling in her legs. CT has been reviewed she has a chronic T12-L1 compression fracture which remains unchanged. On exam she is tender but able to lift her lower extremities. She does take Percocet regularly which she was given this morning. she was also given a dose of Dilaudid. Patient attempted ambulation trial but failed per nursing needed significant assistance. CT of the patient is evaluation ordered. Blood work was ordered. CBC shows no significant leukocytosis or anemia, CMP does show sodium 134 potassium 3.5 chloride 101 carbon dioxide 16 BUN 29 creatinine 1.1, otherwise normal Brian, 09/05/2023, 6:00 p.m. Sign-out from Dr. Elise, patient still here from previous encounter. CT scans showed no fractures, however patient was unable to ambulate. Labs sent, unremarkable, urinalysis negative. We will consult social services designee and physical therapy, unsafe discharge, might require [facility] placement. Assumed interim care. 09/06/23 Dr. Elise Patient seen evaluated myself this morning noted to be slightly hypoxic overnight possibly due to medication RANULFO consider pulmonary embolism and congestive heart failure. Repeat blood work this morning, does show elevated BNP 1920 troponin 0.013 no other abnormalities, electrolytes and creatinine stable and actually creatinine has improved from 1.16-->0.9. CT angio was done to rule out pulmonary embolism after boarding in the emergency department, no evidence of PE, but there is small right pleural effusion with minimal right basilar atelectasis, chest x-ray did not show any acute cardiopulmonary process Continues to not have any evidence of infection respiratory panel is negative However she definitely is requiring 1-2 L of oxygen PT evaluated patient definitely requiring 1-2 patient assist IV fluids have been stopped she is given Lasix Dr. Borjas updated on patient's symptoms test results agrees with observation Discharge Plan Departure Patient Disposition: Admitted as Observation Clinical Impression: CHF (congestive heart failure), Fall, Bilateral hip pain, Low back pain, Left buttock pain, Hypoxia Admit Date/Time: 09/06/23 11:51 Admit Provider: See Borjas
--- NOTE | 2023-09-05 04:31 | DI.CT.S_ITS ---
PROCEDURE: CT ABDOMEN PELVIS WO CON INDICATIONS: R and L hip pain after fall, L buttock pain TECHNIQUE: Axial sections were acquired from the lung bases to the pubic symphysis. Coronal and sagittal reformats were performed. For radiation dose reduction, the following was used: automated exposure control, adjustment of mA and/or kV according to patient size. COMPARISON: None. FINDINGS: Image quality: Streak metal artifact from bilateral hip arthroplasty limits evaluation of the pelvis and surrounding soft tissues.. Lower Chest: Subsegmental atelectasis. Coronary artery calcifications URINARY: Right Kidney: No stones or hydronephrosis. Right Ureter: No hydroureter. Left Kidney: No stones or hydronephrosis. Left Ureter: No hydroureter. Bladder: Streak metal artifact and nondistention limits evaluation. No calcified stones. ABDOMEN: Liver: No contour-deforming solid mass. Gallbladder: Small layering calcifications. No wall thickening or pericholecystic fluid to suggest acute cholecystitis. Biliary ducts: No biliary dilation. Pancreas: No ductal dilation. Spleen: Size is within normal limits. Adrenal Glands: No adrenal nodules. Stomach and Bowel: Normal colonic caliber, without significant wall thickening. Peritoneum: No abnormal intraperitoneal fluid. No free air. Ventral Wall: No hernia. Abdominal Nodes: No enlarged retroperitoneal or mesenteric lymph nodes. Vessels: Aorta and inferior vena cava are normal in size. PELVIS: Pelvic Organs: Unremarkable. Pelvic Nodes: Unremarkable. Miscellaneous: No inguinal hernias are seen. Bones: Bones are demineralized. Status post bilateral hip arthroplasty with prosthetic elements in appropriate position. No acute fracture identified. Chronic compression deformities of L1-L5, progressed since 04/16/2021. Additional compression deformities T10 through T12, progressed since 04/16/2021. IMPRESSION: No acute process in the abdomen or pelvis. Chronic compression deformities of L1-T12, progressed since 04/16/2021. Status post bilateral hip arthroplasty. No acute fracture identified, however bones are demineralized and adjacent streak artifact limits evaluation. Approved by: Karena Jarrell M.D.,Ph.D. on 09/05/2023 at 8:14
[2023-09-05] MEDS: OXYCODONE/ACETAMINOPHEN 5/325 TABLET 1 TAB PO (08:34)
--- NOTE | 2023-09-05 09:45 | PC.NURSE ---
BODY MASKER Note: Patient unable to stand due to weakness in legs. Needed assistance sitting, standing and two person assist back into bed.
[2023-09-05 10:23] LABS: Add Manual Diff / Slide Review NO; Basophils Absolute Auto 0 /uL (0-100); Basophils Percent Auto 0.7 % (0-2); Eosinophils Absolute Auto 0 /uL (0-450); Eosinophils Percent Auto 0.9 % (2-4); Hematocrit 36.1 % (36-46); Hemoglobin 12.4 g/dL (12.0-16.0); Lymphocytes Absolute Auto 1300 /uL (1100-4500); Lymphocytes Percent Auto 21.5 % (25-40); Mean Corpuscular HGB Conc 34.3 % (30-36); Mean Corpuscular Hemoglobin 31.6 PG (26-34); Mean Corpuscular Volume 92.1 fL (80-100); Monocytes Absolute Auto 600 /uL (0-900); Monocytes Percent Auto 10.5 % (3-14); Neutrophils Absolute Auto 3900 /uL (1500-7000); Neutrophils Percent Auto 66.4 % (50-75); Platelet Count 181 X10^3/uL (150-400); Red Blood Cell Count 3.93 X10^6/uL (4.0-5.2); Red Cell Distribution Width 13.6 % (11.6-14.8); White Blood Cell Count 5.9 X10^3/uL (4.5-11.0)
[2023-09-05 10:34] LABS: Alanine Aminotransferase 15 IU/L (<35); Albumin Globulin Ratio 1.4 (1.0-2.8); Alkaline Phosphatase 102 U/L (38-126); Aspartate Aminotransferase 27 IU/L (14-36); Bilirubin Total 1.3 mg/dL (0.2-1.3); Blood Urea Nitrogen 29 mg/dL (7-17); Calcium 8.7 mg/dL (8.4-10.2); Carbon Dioxide 26 mmol/L (22-32); Chloride 101 mmol/L (98-107); Estimated Glomerular Filt Rate 46 mL/min (>60); Globulin 2.8 g/dL (1.7-4.1); Glucose 123 mg/dL (80-110); HEMOLYSIS < 15 (0-50); Potassium 3.5 mmol/L (3.4-5.1); Sodium 134 mmol/L (137-145); Total Protein 6.8 g/dL (6.3-8.2)
[2023-09-05] MEDS: SODIUM CHLORIDE 0.9% 1,000 ML 125 ML IV (11:00)
[2023-09-05] MEDS: OXYCODONE IR 5 MG TABLET PO ×3 (14:20→22:25)
--- NOTE | 2023-09-05 15:01 | PC.NURSE ---
22ga IV in the left hand was infiltrated and was removed. Bandaged was placed on the hand and a new IV was placed.
--- NOTE | 2023-09-05 18:51 | PC.NURSE ---
patient moved to a hospital bed. She tolerated it well but was not able to help move at all. She was not able to ambulate at all due to pain in her back.
[2023-09-05 19:05] LABS: Adenovirus Not Detected (Not Detect); B. parapertussis Not Detected (Not Detecte); Bordetella pertussis Not Detected (Not Detect); Chlamydophila pneumoniae Not Detected (Not Detect); Coronavirus 229E Not Detected (Not Detect); Coronavirus HKU1 Not Detected (Not Detect); Coronavirus NL 63 Not Detected (Not Detect); Coronavirus OC43 Not Detected (Not Detect); Human Metapneumovirus Not Detected (Not Detect); Human Rhinovirus/Enterovirus Not Detected (Not Detect); Influenza A Not Detected (Not Detect); Influenza B Not Detected (Not Detect); Mycoplasma pneumoniae Not Detected (Not Detect); Parainfluenza Virus 1 Not Detected (Not Detect); Parainfluenza Virus 2 Not Detected (Not Detect); Parainfluenza Virus 3 Not Detected (Not Detect); Parainfluenza Virus 4 Not Detected (Not Detect); Respiratory Syncytial Virus Not Detected (Not Detect); SARS- CoV-2 Not Detected (Not Detecte)
[2023-09-05] MEDS: AMLODIPINE 5 MG TABLET 2.5 MG PO (21:08)
[2023-09-05] MEDS: DOCUSATE 100 MG CAPSULE PO (21:08)
[2023-09-05] MEDS: MONTELUKAST 10 MG TABLET PO (21:09)
[2023-09-05] MEDS: ASPIRIN EC 325 MG TABLET PO (22:25)
--- NOTE | 2023-09-05 23:02 | PC.NURSE ---
Assumed cares from MIREYA Reardon. Pt lying back in [facility]. Denies pain at this time.
[2023-09-06] VITALS (38 sets, daily range): BP systolic 107–186; BP diastolic 54–111; PULSE 60–113; RESP 15–37; TEMP 36.9–37.1; O2SAT 87–97; BMI 33.3
[2023-09-06] MEDS: OXYCODONE IR 5 MG TABLET PO ×2 (07:00→13:09)
[2023-09-06] MEDS: ASPIRIN EC 325 MG TABLET PO ×2 (08:35→21:16)
[2023-09-06] MEDS: AMLODIPINE 5 MG TABLET 2.5 MG PO (08:38)
[2023-09-06] MEDS: CALCITONIN,SALMON, NASAL SPRAY 1 SPRAYS NASAL (08:38)
--- NOTE | 2023-09-06 08:41 | DI.RAD.S_ITS ---
PROCEDURE: XR CHEST 1V INDICATIONS: short of breath TECHNIQUE: One view of the chest was acquired. COMPARISON: [facility], , CHEST 2 VIEW, 02/26/2016, 10:23. FINDINGS: Surgical changes and devices: None. Lungs and pleura: Lungs are clear. No pleural effusions or pneumothorax. Mediastinum: Mediastinal contours appear normal. Heart size is normal. Bones and chest wall: No suspicious bony lesions. Overlying soft tissues appear unremarkable. IMPRESSION: No acute cardiopulmonary abnormality is seen. Dictated by: Jayro Cordon M.D. on 09/06/2023 at 9:28 Approved by: Jayro Cordon M.D. on 09/06/2023 at 9:28
[2023-09-06 09:34] LABS: Add Manual Diff / Slide Review NO; Basophils Absolute Auto 0 /uL (0-100); Basophils Percent Auto 0.6 % (0-2); Eosinophils Absolute Auto 100 /uL (0-450); Hematocrit 35.7 % (36-46); Hemoglobin 12.1 g/dL (12.0-16.0); Lymphocytes Absolute Auto 1200 /uL (1100-4500); Mean Corpuscular HGB Conc 33.9 % (30-36); Mean Corpuscular Hemoglobin 31.2 PG (26-34); Mean Corpuscular Volume 92.1 fL (80-100); Monocytes Absolute Auto 500 /uL (0-900); Monocytes Percent Auto 8.5 % (3-14); Neutrophils Absolute Auto 4100 /uL (1500-7000); Neutrophils Percent Auto 68.9 % (50-75); Platelet Count 178 X10^3/uL (150-400); Red Blood Cell Count 3.88 X10^6/uL (4.0-5.2); Red Cell Distribution Width 13.4 % (11.6-14.8)
[2023-09-06 09:41] LABS: D Dimer 1735 ng/ml (<500)
[2023-09-06 09:43] LABS: Alanine Aminotransferase 14 IU/L (<35); Albumin 3.5 g/dL (3.5-5.0); Albumin Globulin Ratio 1.3 (1.0-2.8); Alkaline Phosphatase 91 U/L (38-126); Aspartate Aminotransferase 27 IU/L (14-36); BUN Creatinine Ratio 20.2 (6-22); Bilirubin Total 0.9 mg/dL (0.2-1.3); Blood Urea Nitrogen 20 mg/dL (7-17); Calcium 8.4 mg/dL (8.4-10.2); Carbon Dioxide 26 mmol/L (22-32); Chloride 104 mmol/L (98-107); Creatine Kinase 157 U/L (30-135); Estimated Glomerular Filt Rate 55 mL/min (>60); Globulin 2.7 g/dL (1.7-4.1); Glucose 148 mg/dL (80-110); HEMOLYSIS < 15 (0-50); Potassium 3.4 mmol/L (3.4-5.1); Sodium 136 mmol/L (137-145); Total Protein 6.2 g/dL (6.3-8.2)
--- NOTE | 2023-09-06 09:43 | DI.CT.S_ITS ---
PROCEDURE: CT ANGIO CHEST PE PROTOCOL INDICATIONS: hypoxia high dimer TECHNIQUE: After the administration of intravenous contrast, 2 mm thick sections acquired from the pulmonary apices to the posterior costophrenic angles. 3-dimensional maximum intensity projection (MIP) coronal and sagittal reformats were then acquired through the thorax. For radiation dose reduction, the following was used: automated exposure control, adjustment of mA and/or kV according to patient size. COMPARISON: [facility] Outside Film, CT, CT ABDOMEN PELVIS WITH CONTRAST, 04/16/2021, 12:55. [facility], CT, CT ABDOMEN PELVIS WO CON, 09/05/2023, 4:43. FINDINGS: Image quality: Diagnostic. Pulmonary arteries: Pulmonary arteries are normal in size, and demonstrate no intraluminal filling defects to suggest central pulmonary embolism. Lower Neck: No enlarged lymph nodes. Thyroid: No thyroid nodules which require sonographic follow up, per consensus guidelines. Axillae: No enlarged lymph nodes. Chest Wall: Unremarkable. Bones: Severe osteoporosis. Numerous compression fractures. Lungs and Pleura: Small right pleural effusion with minimal right basilar atelectasis. Heart: Heart size is normal. Moderate coronary artery calcifications. No pericardial effusion. Thoracic Vessels: No aortic aneurysm. Mediastinum and Dai: No enlarged lymph nodes. Esophagus: No wall thickening. No hiatal hernia. Upper Abdomen: Visualized upper abdomen solid organs and bowel loops appear normal. IMPRESSION: 1. No acute pulmonary emboli. 2. Small right pleural effusion with minimal right basilar atelectasis. 3. Moderate coronary artery calcifications. 4. Severe osteoporosis with numerous compression fractures. Comment: If clinically suspect pain related to an acute or subacute compression fracture, consider nonemergent MRI of the thoracic and lumbar spine. Dictated by: Jayro Cordon M.D. on 09/06/2023 at 11:11 Approved by: Jayro Cordon M.D. on 09/06/2023 at 11:29
[2023-09-06] MEDS: MONTELUKAST 10 MG TABLET PO (09:45)
[2023-09-06 09:55] LABS: NT-proBNP (BNP-Adult 18+) 1920 pg/mL (<450); Troponin I 0.013 ng/mL (0.01-0.034)
--- NOTE | 2023-09-06 10:11 | PT.IIE ---
Surgical History (Last Reviewed 07/24/21 @ 11:34 by Katie Andrew PA-C) History of cataract removal with insertion of prosthetic lens History of total right hip arthroplasty (08/09/14) Status post epidural steroid injection Status post hysterectomy Status post ORIF of fracture of ankle Medical History (Last Reviewed 07/24/21 @ 11:34 by Katie Andrew PA-C) Anxiety Asthma Chronic cough Compression fracture Depression DJD of left shoulder Fibromyalgia GERD (gastroesophageal reflux disease) Gout Hemorrhoids Hiatal hernia HTN (hypertension) Hypothyroid Insomnia Lumbar compression fracture Lumbosacral radiculopathy at L4 Osteoarthritis Osteopenia Peripheral neuropathy Sciatica Scoliosis Spinal stenosis, multilevel Physical Therapy Inpatient Evaluation/Re-Eval M1 PT/OT-IP Prior Functional Status Start: 09/06/23 09:08 Freq: Status: Active Protocol: Document 09/06/23 09:15 MB (Rec: 09/06/23 10:11 MB [id number]) Medical Review Prior Functional Status Medical History Reviewed Yes Diet/Fluid Consistency Regular Communication WNLs Mobility and Gait Short distances in home with 4WW Activities of Daily Living and IADL's Mod I for dressing, took sponge baths, has state caregiver assistance 5x/wk for a couple of hours a day Social History Household Members none Living Arrangements Apartment/Condo Number of Floors (Floors) One Floor Number of Stairs To Enter/Railing? 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 M2 PT-IP Current Condition Start: 09/06/23 09:08 Freq: Status: Active Protocol: Document 09/06/23 09:15 MB (Rec: 09/06/23 10:11 MB [id number]) Physical Therapy Current Condition Current Condition Evaluation Date 09/06/23 Treatment Diagnosis Fall, back and leg pain M3 PT-IP Subjective Start: 09/06/23 09:08 Freq: Status: Active Protocol: Document 09/06/23 09:15 MB (Rec: 09/06/23 10:11 MB [id number]) Subjective Physical Therapy Visit Type Type Initial Evaluation Visit Start Time 09:15 Visit Stop Time 09:40 Number of SERVICE 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 Visits 0 Physical Therapy Visit Comments Patient Comments Pt c/o back pain, left glute pain and leg pain at rest and with movement, complaints about bed, being hot and not wishing to wear gown Therapy Pain Assessment Pain When Pain Assessed At Rest Pain Present Pain Present Pain Reported Location Lower Back Intensity 6 Scale Used Numeric (0 - 10) Pain Management Techniques Distraction,Modification of Treatment,Re-positioning M4 PT-IP Mobility and Gait Start: 09/06/23 09:08 Freq: Status: Active Protocol: Document 09/06/23 09:15 MB (Rec: 09/06/23 10:11 MB [id number]) PT-Bed Mobility Assessment Rolling Type of Rolling Roll to Left Level of Assist Contact Guard Assistance,1 Person Assistance Supine to Sit Supine to Sit Contact Guard Assistance,1 Person Assistance,Head of Bed Elevated,Bedrails Sit to Supine Sit to Supine Maximum Assistance,1 Person Assistance Scooting Scooting to Edge of Bed Maximum Assistance Scooting Up and Down in Bed Dependent PT-Transfer Assessment Sit to and From Stand Sit to and from Stand Moderate Assistance,2 Person Assistance,Use of Upper Extremities Equipment Transfer Assistive Device Gait Belt,Front Wheeled Walker Orthotic/Prosthetic Devices or Brace: No Transfers Transfer Destination Bed Transfer Technique Side step to left Transfer Ability Level of Assist Moderate Assistance,2 Person Assistance,Use of Upper Extremities Comments Mobility Comments Pt's legs do not reach the floor and use of pad to scoot hips forward, cues to use bed rail to scoot. O2 sats on RA 89-96% and MD clears to keep O2 off after PT. HR increases to 107 BPM with mobility. Pt with many complaints including being hot and pain and pt con 't to try to take gown off Gait Assessment Gait Gait Assistance Required: Minimum Assistance,2 Person Assist Distance (Feet) 1 Able to Maintain Weight Bearing Status Yes During Gait Assistive Devices Assistive Device Gait Belt,Front Wheeled Walker Orthotic/Prosthetic Devices or Brace: No Gait Deviations General Gait Pattern Antalgic,Decreased Stride Length,Decreased Feet Clearance,Flexed Trunk,Step-to Gait,Wide Based Gait Factors Limiting Gait Function Factors Limiting Gait Function Decreased Activity Tolerance, Decreased Strength,Difficulty Following Directions, Incoordination,Limited Range of Motion,Pain,Poor Balance, Poor Safety Awareness Comments Gait Comments Pt with functional right foot drop with ROM in the bed and side stepping to left up to HOB with walker and nsg and PT assistance, flexed posture and decreased foot clearance B PT-Balance Assessment Sitting Balance and Reactions Static Sitting Balance Ability Fair Dynamic Sitting Balance Ability Poor Standing Balance and Reactions Static Standing Balance Ability Fair Dynamic Standing Balance Ability Poor Device Used RW M5 PT-IP Objective Assessments Start: 09/06/23 09:08 Freq: Status: Active Protocol: Document 09/06/23 09:15 MB (Rec: 09/06/23 10:11 [id number]) Orientation Orientation/Cognition Level of Alertness Alert Orientation Name,Age,Birthday,Month,Year, Day of Week,Place,Situation Language Function Ability No Deficits Noted Safety Awareness Decreased Safety Awareness Memory Description No Deficits Noted Gross Range of Motion Upper Extremity ROM Assessment Bilaterally Impaired Impairments Decreased shoulder flexion B in hook lying Lower Extremity ROM Assessment Bilaterally Impaired Impairments No functional right ankle DF when in bed and decreased foot clearance with side stepping Strength Upper Extremity Strength Assessment Bilaterally Impaired Lower Extremity Strength Assessment Bilaterally Impaired Comments Strength Comments MMT deferred d/t pt's frequent complaints Sensation Assessment Comments Sensation Comments Pt does not follow testing cues and is inconsistent with reports M6 PT-IP Treatment Start: 09/06/23 09:08 Freq: Status: Active Protocol: Document 09/06/23 09:15 MB (Rec: 09/06/23 10:11 [id number]) Physical Therapy Treatment Education Education Provided Safety M7 PT-IP Assessment and Plan Start: 09/06/23 09:08 Freq: Status: Active Protocol: Document 09/06/23 09:15 MB (Rec: 09/06/23 10:11 [id number]) PT Summary Assessment and Plan Potential Rehabilitation Potential Fair Status of Condition at Evaluation Evolving Summary Impairments Pain,ROM,Strength,Balance, Coordination,Sensation,Bed Mobility,Transfers,Gait, Activity Tolerance Progress Towards Goals Slow Progress due to Pain Assessment Summary Pt is an 87 y/o female adm after fall at home. She states she used her life alert to contact paramedics and she has had about 2 falls this year. She typically lives in her apartment and has state caregivers 5x/wk for a couple of hours. Pt reports back pain and then hip and leg pain with mobility today and pain, agitation and c/o being hot and pt trying to pull off gown are barriers to short mobility assessment. Pt requires 2 person assistance for STS, side step, sit to supine and scooting up to HOB this a.m. Pt has biggest complaints of left glute pain once supine when asked to try bridging and scooting to the left. Goals Bed Mobility Goal Independent Transfer Goal Independent,Front Wheeled Walker,Four Wheeled Walker Gait Goal Independent,Front Wheel Walker ,Four Wheel Walker Gait Distance 75 Days to Meet Goals 5 Frequency of Treatment Frequency Of Treatment Once a Day Treatment Plan Physical Therapy Treatment Plan Bed Mobility Training,Transfer Training,Gait Training, Therapeutic Exercise,Balance Retraining,Discharge Planning, Hot or Cold Pack,Neuromuscular Re-ed,Manual Therapy Weight Bearing Status Weight Bearing Status Weight Bear as Tolerated Recommendations To Nursing Amount of Assist Needed 2 Person Assist Discharge Recommendations PT Discharge Recommendations SNF Rehab Transportation Needs at Discharge Wheelchair/Cabulance,Stretcher /Ambulance
[2023-09-06] MEDS: FLUTICASONE 120 SPRAY/16 GM SPRAY.SUSP NASAL (11:37)
[2023-09-06] MEDS: FUROSEMIDE 40 MG/4 ML VIAL IV ×2 (11:55→17:24)
--- NOTE | 2023-09-06 12:31 | P.HP_ITS ---
History of Present Illness History of Present Illness Chief complaint: fall Narrative: From ED doctor: 87-year-old female with fall at home, complains of low back pain, as well as kjjk-[id number]-hnzl-right hip pain. She denies pain to her head, neck, chest, upper back, abdomen, pelvis. No pain to mid distal thighs, knees, foreleg, ankles, feet, toes. She does admit to aspirin use, but denies other blood thinner medication use. Denies any recent illness symptoms, fevers, cough, dysuria, frequency of urination, loose stools, black stools, red stools, nausea, vomiting. Additional info: She lives alone in [place]. She had a fall and was evaluated by medics but declined transport. She then had great difficulty with ADLs and moving around her apartment the next 2 days. She was lower back pain and bilateral leg pain. Ultimately she called for help was brought to the emergency department. She has been in the emergency department under observation status for the past 30 hours. The patient was on normal saline at 100, she developed hypoxia and shortness a breath this morning. She was diuresed for acute heart failure after a chest x- ray revealed pulmonary edema and pleural effusion. She denies any chest pain, or palpitations. She has no cardiac history. She does note that she was weak and has a lot of pain from her fall. She has no local family members, her children are scattered across [place]. She has no intention moving out of the area either. She has been constipated but denies any urinary symptoms such as dysuria or hematuria. No fevers, chills. She also denies a cough. [facility] Medical History Insomnia Asthma Depression Sciatica Chronic cough Gout Hiatal hernia Osteopenia Peripheral neuropathy Compression fracture Anxiety Scoliosis Osteoarthritis Hemorrhoids Hypothyroid HTN (hypertension) GERD (gastroesophageal reflux disease) Fibromyalgia DJD of left shoulder Lumbar compression fracture Lumbosacral radiculopathy at L4 Spinal stenosis, multilevel Surgical History Status post epidural steroid injection History of total right hip arthroplasty (08/09/14) Status post ORIF of fracture of ankle History of cataract removal with insertion of prosthetic lens Status post hysterectomy Family History Brother Age: 94 Heart disease Brother Age: 89 High cholesterol Father Heart disease Hypertension Mother Hypertension Sister Heart disease Social History household members: none Smoking Status: Former smoker alcohol intake: current Meds Home Medications and Allergies Home Medications Medication Instructions Recorded Confirmed Type aspirin 325 mg tablet,delayed 325 mg PO DAILY 12/02/17 09/05/23 History release calcitonin (salmon) 200 1 spray intranasal (ALT) DAILY 12/02/17 09/05/23 History unit/actuation nasal spray cholecalciferol (vitamin D3) 25 1,000 unit PO DAILY 12/02/17 09/05/23 History mcg (1,000 unit) capsule diphenhydramine HCl 25 mg capsule 25 mg PO Q4H PRN Seasonal allergies 12/02/17 09/05/23 History (Benadryl) fluticasone propionate 50 2 spray intranasal BID 12/02/17 09/05/23 History mcg/actuation nasal spray,suspension (Flonase Allergy Relief) montelukast 10 mg tablet 10 mg PO QPM 12/02/17 09/05/23 History vitamin B complex 1 cap PO DAILY 12/02/17 09/05/23 History amlodipine 2.5 mg tablet 2.5 mg PO QAM 07/16/21 09/05/23 History methocarbamol 500 mg tablet 500 mg PO BID 07/16/21 09/05/23 History telmisartan 80 mg tablet 80 mg PO BEDTIME 07/16/21 09/05/23 History docusate sodium 100 mg capsule 100 mg PO BID PRN constipation #30 07/24/21 09/05/23 Rx caps hydroxyzine pamoate 25 mg capsule 25 mg PO Q4HR PRN Muscle 07/24/21 09/05/23 Rx spasm/pain/nausea #60 caps ibuprofen 400 mg tablet 400 mg PO Q6HR PRN 07/24/21 09/05/23 Rx Pain/inflammation #90 tabs oxycodone 10 mg tablet 10 mg PO Q3HR PRN Pain, Severe 07/24/21 09/05/23 Rx (7-10) #42 tabs polyethylene glycol 3350 17 gram 17 g PO DAILY PRN Constipation #14 07/24/21 09/05/23 Rx oral powder packet ea oxycodone-acetaminophen 5 mg-325 1 tab PO BID PRN Pain, Severe 09/05/23 09/05/23 History mg tablet vitamin B complex 1 tab PO DAILY 09/05/23 09/05/23 History Allergies Allergy/AdvReac Type Severity Reaction Status Date / Time adhesive tape Allergy Severe ITCHING Verified 09/06/23 09:49 pregabalin [From LYRICA] Allergy Severe Body Verified 09/06/23 09:49 swelling sertraline [SERTRALINE] Allergy Severe Body Verified 09/06/23 09:49 swelling gabapentin [GABAPENTIN] AdvReac Severe It was Verified 09/06/23 09:49 like I was not living morphine [MORPHINE] AdvReac Severe Nausea - Verified 09/06/23 09:49 Pt has not actually had it, but adamantly refuses Review of Systems Review of Systems Narrative: All else reviewed and otherwise unremarkable except as noted in the history and physical. Exam Vital Signs (past 8 hours): - 09/06/23 05:00 09/06/23 05:30 09/06/23 06:00 Pulse Rate 69 82 77 Respiratory Rate 31 H 18 20 Blood Pressure Pulse Oximetry 91 92 91 Oxygen Delivery Method Oxygen Flow Rate 09/06/23 06:30 09/06/23 07:00 09/06/23 07:24 Pulse Rate 61 67 Respiratory Rate 16 22 Blood Pressure 186/82 H Pulse Oximetry 90 L 92 Oxygen Delivery Method Nasal Cannula Oxygen Flow Rate 09/06/23 07:24 09/06/23 07:30 09/06/23 08:00 Pulse Rate 71 68 77 Respiratory Rate 15 19 20 Blood Pressure Pulse Oximetry 87 L 89 L Oxygen Delivery Method Room Air Room Air Oxygen Flow Rate 09/06/23 08:01 09/06/23 08:10 09/06/23 08:10 Pulse Rate 74 81 Respiratory Rate 22 22 Blood Pressure 150/65 H Pulse Oximetry Oxygen Delivery Method Oxygen Flow Rate 09/06/23 08:30 09/06/23 09:00 09/06/23 09:30 Pulse Rate 76 66 113 H Respiratory Rate 27 H 36 H 37 H Blood Pressure Pulse Oximetry 96 91 Oxygen Delivery Method Nasal Cannula Oxygen Flow Rate 2 09/06/23 10:00 09/06/23 10:01 09/06/23 10:01 Pulse Rate 70 69 Respiratory Rate 22 25 H Blood Pressure 155/111 H Pulse Oximetry 94 95 Oxygen Delivery Method Oxygen Flow Rate 09/06/23 10:25 09/06/23 10:25 09/06/23 10:30 Pulse Rate 72 65 Respiratory Rate 17 20 Blood Pressure 168/74 H Pulse Oximetry 93 95 Oxygen Delivery Method Oxygen Flow Rate 09/06/23 11:00 09/06/23 11:14 09/06/23 11:15 Pulse Rate 77 Respiratory Rate Blood Pressure Pulse Oximetry 97 94 90 L Oxygen Delivery Method Nasal Cannula Room Air Oxygen Flow Rate 2 09/06/23 11:16 09/06/23 11:30 09/06/23 12:00 Pulse Rate 73 66 Respiratory Rate 28 H 24 Blood Pressure Pulse Oximetry 92 97 96 Oxygen Delivery Method Nasal Cannula Oxygen Flow Rate 2 09/06/23 12:01 09/06/23 12:01 Pulse Rate 69 Respiratory Rate 21 Blood Pressure 155/68 H Pulse Oximetry 96 Oxygen Delivery Method Nasal Cannula Oxygen Flow Rate 2 Oxygen Delivery Method Nasal Cannula Oxygen Flow Rate 2 Narrative Exam Narrative: NAD, alert and oriented, fluent speech, calm. Normocephalic skull, EOMI, anicteric sclera, symmetric pupils. Oropharynx unremarkable, no droop. Neck supple, midline trachea, no adenopathy. Lungs clear, normal rate and effort. Heart regular, no murmur gallop or rub. Abdomen is soft, non distended and non tender. Extremities are free of edema. Skin is free of rash or lesions. Joints are not swollen or deformed. Judgment appears to be normal. Objective ECG Impression: NSR. Imaging CT scan - chest: Radiologist's impression: 1. No acute pulmonary emboli. 2. Small right pleural effusion with minimal right basilar atelectasis. 3. Moderate coronary artery calcifications. 4. Severe osteoporosis with numerous compression fractures. Comment: If clinically suspect pain related to an acute or subacute compression fracture, consider nonemergent MRI of the thoracic and lumbar spine. Chest x-ray: Radiologist's impression: No acute cardiopulmonary abnormality is seen. CT scan - abdomen: Radiologist's impression: No acute process in the abdomen or pelvis. Chronic compression deformities of L1-T12, progressed since 04/16/2021. Status post bilateral hip arthroplasty. No acute fracture identified, however bones are demineralized and adjacent streak artifact limits evaluation. Labs 09/06/23 09:24 09/06/23 09:24 Labs: Laboratory Results - last 24 hr 09/05/23 09/06/23 18:09 09:24 WBC 6.0 RBC 3.88 L Hgb 12.1 Hct 35.7 L MCV 92.1 MCH 31.2 MCHC 33.9 RDW 13.4 Plt Count 178 Neut % (Auto) 68.9 Lymph % (Auto) 20.0 L [place] % (Auto) 8.5 Eos % (Auto) 2.0 Baso % (Auto) 0.6 Neut # (Auto) 4100 Lymph # (Auto) 1200 [place] # (Auto) 500 Eos # (Auto) 100 Baso # (Auto) 0 D-Dimer 1735 H Sodium 136 L Potassium 3.4 Chloride 104 Carbon Dioxide 26 BUN 20 H Creatinine 0.99 Estimated GFR 55 L BUN/Creatinine Ratio 20.2 Glucose 148 H Calcium 8.4 Total Bilirubin 0.9 AST 27 ALT 14 Alkaline Phosphatase 91 Total Creatine Kinase 157 H Troponin I 0.013 NT-Pro-B Natriuret Pep 1920 H Total Protein 6.2 L Albumin 3.5 Globulin 2.7 Albumin/Globulin Ratio 1.3 Chlamy pneumoniae PCR Not detected Adenovirus (PCR) Not detected B.parapertussis DNA PCR Not detected Coronavirus OC43 (PCR) Not detected Coronavirus HKU1 (PCR) Not detected Coronavirus 229E (PCR) Not detected SARS-CoV-2 (PCR) Not detected Coronavirus NL63 (PCR) Not detected Human Metapneumovir PCR Not detected Influenza Type A (PCR) Not detected Influenza Type B (PCR) Not detected M. pneumoniae (PCR) Not detected Parainfluenza 1 (PCR) Not detected Parainfluenza 2 (PCR) Not detected Parainfluenza 3 (PCR) Not detected Parainfluenza 4 (PCR) Not detected RSV (PCR) Not detected Entero/Rhino (PCR) Not detected Assessment & Plan Assessment & Plan narrative: 1. Acute CHF, present on admission and active. 2. Gait instability and recent fall, present on admission and active. 3. Acute on chronic lower back pain with bilateral leg pain, present on admission and active. 4. Multiple subacute compression fractures, present on admission and active. 5. Asthma, present on admission and stable. 6. Hypertension, present on admission and stable. 7. Peripheral neuropathy, present on admission and stable. PLAN: -diurese with Lasix 40 IV q.12, 2D echo to assess for diastolic dysfunction or LV dysfunction. -physical therapy and discharge planning. She is observation status with a 1 night expectation of hospital services required. She is full resuscitation, confirmed. Time-Based Coding :: 30 min spent with patient and on the chart (including review of chart, obtaining history, exam, reviewing outside data, placing orders, documenting exam and treatment plan, and counseling patient) on 09/05. Quality MIPS - Admit I confirm the patient?s Advance Care Plan is present, Code status is documented, Surrogate decision maker is in patient?s record [If Yes, STOP here]: Yes MIPS - Meds 'Current medications' to include all prescriptions, [id number] products, herbals, cannabis/cannabidiol products, and vitamin/mineral/dietary (nutritional) supplements. I have utilized all available resources to obtain, update, or review the patient?s current medications. [If Yes, STOP here]: Yes
[2023-09-06] MEDS: HEPARIN 5,000 UNIT/ML VIAL 5000 UNIT SUBCUT ×2 (13:09→21:16)
--- NOTE | 2023-09-06 13:20 | DI.ECHO.S_ITS ---
[facility]+ [facility] : : [address] : [place] : : [id number] : : Phone: [phone] Echocardiogram Report + + :Name: KINGSTON CARR Study Date: 09/07/2023 Height: 65 in : :Hospital ReadingLocation: Weight: 200 lb : : Gender: Female BSA: 2.0 m2 : :: 1935 Age: 87 yrs BP: 152/56 mmHg: :Reason For Study: DYSPNEA : :Ordering Physician: APRYL, : :SANDRA Baig Performed By: Urvashi Willams : :Referring: SANDRA PINK : + + Interpretation Summary The ejection fraction is estimated to be 65-70%. Grade I diastolic dysfunction. The right ventricular systolic function is normal. Both atria are normal in size. No significant valvular abnormality. The IVC is of normal diameter and collapses greater than 50% with a sniff. This suggests a low right atrial pressure of 3 mm Hg. Procedure: A two-dimensional transthoracic echocardiogram with color flow and Doppler was performed. The study quality was technically difficult. There is no prior echocardiogram noted for this patient. The heart rate ranged between 63-92 bpm during the study. Left Ventricle: The left ventricle is normal in size. Proximal septal thickening is noted. The ejection fraction is estimated to be 65-70%. There are no obvious focal wall motion abnormalities noted but poor endocardial definition reduces the sensitivity for the detection of such. Grade I diastolic dysfunction. Right Ventricle: The right ventricle grossly appears normal in size with probable normal systolic function. The right ventricular systolic function is normal. Atria: The left atrial size is normal. Both atria are normal in size. Right atrial size is normal. There is no Doppler evidence for an interatrial shunt. Mitral Valve: The mitral valve leaflets are mildly calcified. There is trace mitral regurgitation. Aortic Valve: The aortic valve opens well. The aortic valve is mildly calcified. There is no aortic valve stenosis. No aortic regurgitation is present. Tricuspid Valve: The tricuspid valve is normal in structure and function. There is trace tricuspid regurgitation. Pulmonary artery pressures cannot be estimated because of the lack of a measurable TR jet velocity. Pulmonic Valve: The pulmonic valve is not well visualized. There is a trace or physiologic amount of pulmonic regurgitation. Great Vessels: The aortic root is normal size. The dimensions of the ascending aorta are normal. The IVC is of normal diameter and collapses greater than 50% with a sniff. This suggests a low right atrial pressure of 3 mm Hg. Pericardium/ Pleura There is no pericardial effusion. There is no pleural effusion. MMode/2D Measurements & Calculations LVIDd: 5.8 cm LVOT diam: 2.0 cm LVIDs: 3.1 cm Ao root diam: 3.1 cm FS: 45.9 % asc Aorta Diam: 3.2 cm IVSd: 1.2 cm LVPWd: 1.1 cm LV sanches. diameter/BSA (cm/m^2): 2.9 LV sys. diameter/BSA (cm/m^2): 1.6 LA A2 area: 23.3 cm2 RA long axis: 5.2 cm LA A4 area: 16.4 cm2 RA area: 13.5 cm2 LA length (vol): 5.5 cm RA vol: 29.6 ml LA vol: 59.0 ml RA : 15.0 ml/m2 LA vol index: 29.8 ml/m2 IVC diam: 1.2 cm RVD1 (basal): 3.0 cm Doppler Measurements & Calculations Ao V2 max: 147.9 cm/sec LVOT Max Yves: 151.2 cm/sec Ao V2 mean: 107.4 cm/sec LV V1 max P.1 mmHg Ao max P.8 mmHg LV V1 VTI: 32.5 cm Ao mean P.1 mmHg IRINA(I,D): 3.2 cm2 Ao V2 VTI: 31.5 cm IRINA(V,D): 3.2 cm2 sev ratio: 1.0 IRINA indexed to BSA (cm^2/m^2): 1.6 MV E max yves: 61.9 cm/sec PA V2 max: 120.2 cm/sec MV A max yves: 87.4 cm/sec PA V2 mean: 87.9 cm/sec MV E/A: 0.71 PA mean P.5 mmHg Med Peak E' Yves: 4.3 cm/sec E/E' med: 14.4 Lat Peak E' Yves: 4.0 cm/sec E/E' lat: 15.5 E/e' average: 15.0 MV dec time: 0.49 sec MVA(VTI): 2.4 cm2 MV V2 mean: 50.6 cm/sec SV(LVOT): 100.2 ml MV mean P.3 mmHg MV V2 VTI: 42.2 cm Reading Physician:CÉSAR
--- NOTE | 2023-09-06 13:51 | EKG_ITS ---
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
[2023-09-06] MEDS: HYDROCODONE/ACET 5/325 TABLET 1 TAB PO (15:14)
[2023-09-06] MEDS: DOCUSATE 100 MG CAPSULE PO (21:16)
[2023-09-06] MEDS: CHOLECALCIFEROL (VITAMIN D3) 1,000 UNIT TABLET 1000 UNIT PO (21:16)
[2023-09-07 03:30] VITALS: BP 152/56; PULSE 62; RESP 19; TEMP 36.5; O2SAT 94
[2023-09-07] MEDS: FUROSEMIDE 40 MG/4 ML VIAL IV ×2 (04:10→17:27)
[2023-09-07 06:54] LABS: Add Manual Diff / Slide Review NO; Basophils Absolute Auto 0 /uL (0-100); Basophils Percent Auto 0.6 % (0-2); Eosinophils Absolute Auto 200 /uL (0-450); Eosinophils Percent Auto 3.6 % (2-4); Hematocrit 37.5 % (36-46); Hemoglobin 12.9 g/dL (12.0-16.0); Lymphocytes Absolute Auto 1500 /uL (1100-4500); Lymphocytes Percent Auto 25.9 % (25-40); Mean Corpuscular HGB Conc 34.4 % (30-36); Mean Corpuscular Hemoglobin 31.2 PG (26-34); Mean Corpuscular Volume 90.6 fL (80-100); Monocytes Absolute Auto 600 /uL (0-900); Monocytes Percent Auto 10.6 % (3-14); Neutrophils Absolute Auto 3500 /uL (1500-7000); Neutrophils Percent Auto 59.3 % (50-75); Platelet Count 193 X10^3/uL (150-400); Red Blood Cell Count 4.13 X10^6/uL (4.0-5.2); Red Cell Distribution Width 13.3 % (11.6-14.8)
[2023-09-07 07:00] VITALS: BP 133/59; PULSE 57; RESP 18; TEMP 36.6; O2SAT 97
[2023-09-07 07:04] LABS: BUN Creatinine Ratio 20.9 (6-22); Blood Urea Nitrogen 23 mg/dL (7-17); Calcium 8.9 mg/dL (8.4-10.2); Carbon Dioxide 32 mmol/L (22-32); Chloride 99 mmol/L (98-107); Estimated Glomerular Filt Rate 49 mL/min (>60); Glucose 109 mg/dL (80-110); HEMOLYSIS < 15 (0-50); Potassium 3.1 mmol/L (3.4-5.1); Sodium 135 mmol/L (137-145)
--- NOTE | 2023-09-07 07:45 | PM.PN.1 ---
Subjective Subjective Interval history: Her breathing is improved. She was still on 0.5 L of oxygen. She is still having significant lower back pain in spite of her oxycodone 5 mg q.4 hours. No nausea. Exam Vital Signs (past 8 hours): - 09/07/23 03:30 Temperature 97.7 F Pulse Rate 62 Respiratory Rate 19 Blood Pressure 152/56 H Pulse Oximetry 94 Oxygen Flow Rate 1.5 Oxygen Delivery Method Nasal Cannula Oxygen Flow Rate 1.5 Narrative Exam Narrative: NAD, alert and oriented. Fluent speech. Lungs are clear, normal rate and effort. Heart is regular, no murmur gallop or rub. Abdomen is soft, non distended. Extremities are free of edema. Objective Labs 09/07/23 06:33 09/07/23 06:33 Labs: Laboratory Results - last 24 hr 09/06/23 09/07/23 09:24 06:33 WBC 6.0 6.0 RBC 3.88 L 4.13 Hgb 12.1 12.9 Hct 35.7 L 37.5 MCV 92.1 90.6 MCH 31.2 31.2 MCHC 33.9 34.4 RDW 13.4 13.3 Plt Count 178 193 Neut % (Auto) 68.9 59.3 Lymph % (Auto) 20.0 L 25.9 [place] % (Auto) 8.5 10.6 Eos % (Auto) 2.0 3.6 Baso % (Auto) 0.6 0.6 Neut # (Auto) 4100 3500 Lymph # (Auto) 1200 1500 [place] # (Auto) 500 600 Eos # (Auto) 100 200 Baso # (Auto) 0 0 D-Dimer 1735 H Sodium 136 L 135 L Potassium 3.4 3.1 L Chloride 104 99 Carbon Dioxide 26 32 BUN 20 H 23 H Creatinine 0.99 1.10 H Estimated GFR 55 L 49 L BUN/Creatinine Ratio 20.2 20.9 Glucose 148 H 109 Calcium 8.4 8.9 Total Bilirubin 0.9 AST 27 ALT 14 Alkaline Phosphatase 91 Total Creatine Kinase 157 H Troponin I 0.013 NT-Pro-B Natriuret Pep 1920 H Total Protein 6.2 L Albumin 3.5 Globulin 2.7 Albumin/Globulin Ratio 1.3 PFSH Medical History Insomnia Asthma Depression Sciatica Chronic cough Gout Hiatal hernia Osteopenia Peripheral neuropathy Compression fracture Anxiety Scoliosis Osteoarthritis Hemorrhoids Hypothyroid HTN (hypertension) GERD (gastroesophageal reflux disease) Fibromyalgia DJD of left shoulder Lumbar compression fracture Lumbosacral radiculopathy at L4 Spinal stenosis, multilevel Surgical History Status post epidural steroid injection History of total right hip arthroplasty (08/09/14) Status post ORIF of fracture of ankle History of cataract removal with insertion of prosthetic lens Status post hysterectomy Family History Brother Age: 94 Heart disease Brother Age: 89 High cholesterol Father Heart disease Hypertension Mother Hypertension Sister Heart disease Social History household members: none Smoking Status: Former smoker alcohol intake: current Assessment & Plan Assessment & Plan narrative: 1. Acute CHF, present on admission and active. 2. Gait instability and recent fall, present on admission and active. 3. Acute on chronic lower back pain with bilateral leg pain, present on admission and active. 4. Multiple subacute compression fractures, present on admission and active. 5. Asthma, present on admission and stable. 6. Hypertension, present on admission and stable. 7. Peripheral neuropathy, present on admission and stable. 8. Hypokalemia, new and active. PLAN: -diurese with Lasix 40 IV q.12, 2D echo to assess for diastolic dysfunction or LV dysfunction. Echo completed, results pending. -physical therapy and discharge planning. -increase oxycodone 10 mg q.4 hours, looking for [facility] facility. -replace potassium She is observation status. Anticipate a 2nd night of hospital level care for pain control and diuresis. This supports inpatient status, we will change order. She is full resuscitation, confirmed. Time-Based Coding :: 25 min spent with patient and on the chart (including review of chart, obtaining history, exam, reviewing outside data, placing orders, documenting exam and treatment plan, and counseling patient) on 09/06. Quality VTE Deep Vein Thrombosis/Pulmonary Embolism Present on Admission: No
--- NOTE | 2023-09-07 09:17 | PT.IPTN ---
Physical Therapy Treatment Note M2 PT-IP Current Condition Start: 09/06/23 09:08 Freq: Status: Active Protocol: Document 09/06/23 09:15 MB (Rec: 09/06/23 10:11 MB [id number]) Physical Therapy Current Condition Current Condition Evaluation Date 09/06/23 Treatment Diagnosis Fall, back and leg pain M3 PT-IP Subjective Start: 09/06/23 09:08 Freq: Status: Active Protocol: Document 09/07/23 10:04 TS (Rec: 09/07/23 10:15 TS [id number]) Subjective Physical Therapy Visit Type Type Treatment Note Visit Start Time 09:17 Visit Stop Time 09:44 Number of PROFESSOR OF OCEANOGRAPHY Visits 1 Physical Therapy Visit Comments Patient Comments Pt continues to c/o LBP and in her LLE. L knee is wrapped for compression. Pt is agreeable to PT. Therapy Pain Assessment Pain When Pain Assessed At Rest Pain Present Pain Present Pain Reported M4 PT-IP Mobility and Gait Start: 09/06/23 09:08 Freq: Status: Active Protocol: Document 09/07/23 10:04 TS (Rec: 09/07/23 10:15 TS [id number]) PT-Bed Mobility Assessment Supine to Sit Supine to Sit Minimal Assistance,1 Person Assistance,Head of Bed Elevated,Bedrails Scooting Scooting to Edge of Bed Maximum Assistance PT-Transfer Assessment Sit to and From Stand Sit to and from Stand Maximum Assistance,1 Person Assistance,Use of Upper Extremities Equipment Transfer Assistive Device Gait Belt,Front Wheeled Walker Orthotic/Prosthetic Devices or Brace: No Transfers Transfer Destination Chair Transfer Technique Stand Step Pivot Transfer Ability Level of Assist Maximum Assistance,1 Person Assistance,Use of Upper Extremities Comments Mobility Comments Pt resting at Spo2 96% on 2L's . Supine to sit HOB elevated Lindsey for uprighting trunk, pt is anxious and requires cues for handrail assist. Scoots to EOB MaxA with use of pad and cues for BUE support. STS with FWW MaxA, pt is unsteady in standing and c/o increasing pain. Stand step pivot to chair MaxA x1 with FWW, pt is unsteady and R knee peewee, pt rpeorts fear of falling. Spo2 94% on 2L's after mobility, pt is cued for PLB. Pt was left in chair, all needs met. Gait Assessment Gait Gait Assistance Required: Maximum Assistance,1 Person Assist Distance (Feet) 2 Able to Maintain Weight Bearing Status Yes During Gait Assistive Devices Assistive Device Gait Belt,Front Wheeled Walker Orthotic/Prosthetic Devices or Brace: No Gait Deviations General Gait Pattern Antalgic,Decreased Stride Length,Decreased Feet Clearance,Flexed Trunk,Step-to Gait,Wide Based Gait Factors Limiting Gait Function Factors Limiting Gait Function Decreased Activity Tolerance, Decreased Strength,Difficulty Following Directions, Incoordination,Limited Range of Motion,Pain,Poor Balance, Poor Safety Awareness Comments Gait Comments RLE peewee and has foot drop. PT-Balance Assessment Sitting Balance and Reactions Static Sitting Balance Ability Fair Dynamic Sitting Balance Ability Poor Standing Balance and Reactions Static Standing Balance Ability Fair Dynamic Standing Balance Ability Poor Device Used FWW M5 PT-IP Objective Assessments Start: 09/06/23 09:08 Freq: Status: Active Protocol: Document 09/06/23 09:15 MB (Rec: 09/06/23 10:11 MB [id number]) Orientation Orientation/Cognition Level of Alertness Alert Orientation Name,Age,Birthday,Month,Year, Day of Week,Place,Situation Language Function Ability No Deficits Noted Safety Awareness Decreased Safety Awareness Memory Description No Deficits Noted Gross Range of Motion Upper Extremity ROM Assessment Bilaterally Impaired Impairments Decreased shoulder flexion B in hook lying Lower Extremity ROM Assessment Bilaterally Impaired Impairments No functional right ankle DF when in bed and decreased foot clearance with side stepping Strength Upper Extremity Strength Assessment Bilaterally Impaired Lower Extremity Strength Assessment Bilaterally Impaired Comments Strength Comments MMT deferred d/t pt's frequent complaints Sensation Assessment Comments Sensation Comments Pt does not follow testing cues and is inconsistent with reports M6 PT-IP Treatment Start: 09/06/23 09:08 Freq: Status: Active Protocol: Document 09/07/23 10:04 TS (Rec: 09/07/23 10:15 [id number]) Physical Therapy Treatment Education Education Provided Safety M7 PT-IP Assessment and Plan Start: 09/06/23 09:08 Freq: Status: Active Protocol: Document 09/07/23 10:04 TS (Rec: 09/07/23 10:15 [id number]) PT Summary Assessment and Plan Potential Rehabilitation Potential Fair Summary Impairments Pain,ROM,Strength,Balance, Coordination,Sensation,Bed Mobility,Transfers,Gait, Activity Tolerance Progress Towards Goals Slow Progress due to Pain,Slow Progress due to Activity Tolerance Assessment Summary Uyen continues to make slow progress with her mobility. She requires max cues for bed mobility and for transfers to chair. She requires MaxA for transfers with FWW and has a fear of falling. Her Spo2 remained stable throughout session. She continues to c/o leg and back pain. PT continues to recommend SNF. Goals Bed Mobility Goal Independent Transfer Goal Independent,Front Wheeled Walker,Four Wheeled Walker Gait Goal Independent,Front Wheel Walker ,Four Wheel Walker Gait Distance 75 Days to Meet Goals 5 Frequency of Treatment Frequency Of Treatment Once a Day Treatment Plan Physical Therapy Treatment Plan Bed Mobility Training,Transfer Training,Gait Training, Therapeutic Exercise,Balance Retraining,Discharge Planning, Hot or Cold Pack,Neuromuscular Re-ed,Manual Therapy Weight Bearing Status Weight Bearing Status Weight Bear as Tolerated Recommendations To Nursing Amount of Assist Needed Mechanical Lift Discharge Recommendations PT Discharge Recommendations SNF Rehab Transportation Needs at Discharge Wheelchair/Cabulance
[2023-09-07 09:34] VITALS: O2SAT 95
[2023-09-07] MEDS: FLUTICASONE 120 SPRAY/16 GM SPRAY.SUSP NASAL (10:01)
[2023-09-07] MEDS: HEPARIN 5,000 UNIT/ML VIAL 5000 UNIT SUBCUT ×2 (10:01→20:57)
[2023-09-07] MEDS: POTASSIUM CHLORIDE 20 MEQ TAB 40 MEQ PO ×2 (10:02→17:27)
[2023-09-07] MEDS: MONTELUKAST 10 MG TABLET PO (10:02)
[2023-09-07] MEDS: CALCITONIN,SALMON, NASAL SPRAY 1 SPRAYS NASAL (10:02)
[2023-09-07] MEDS: CHOLECALCIFEROL (VITAMIN D3) 1,000 UNIT TABLET 1000 UNIT PO (10:02)
[2023-09-07] MEDS: AMLODIPINE 5 MG TABLET 2.5 MG PO ×2 (10:02→20:58)
[2023-09-07] MEDS: ASPIRIN EC 325 MG TABLET PO ×2 (10:02→20:57)
[2023-09-07] MEDS: DOCUSATE 100 MG CAPSULE PO ×2 (10:03→20:57)
--- NOTE | 2023-09-07 11:03 | PC.NURSE ---
Addendum entered by Jade Montez R.N. 09/07/23 13:34: Patient given Vicodin for discomfort to back, this has been helpful for patient. she will be a scott lift back to bed. Original Note: Assess- Patient is alert and oriented x3, she is sitting up in her chair after PT got her up. She will be a scott back to bed. Denies discomfort at this time.
[2023-09-07] MEDS: HYDROCODONE/ACET 5/325 TABLET 1 TAB PO (12:42)
--- NOTE | 2023-09-07 14:13 | CM.DANOTE ---
Initial DCP Assessment Visit Note Reviewed EMR and team rounds for pt's medical status and updates. Met with pt at bedside and introduced self and role. Pt resides alone and semi-independently in her own apartment in [place], she uses a walker at baseline for mobility. She has in-home caregivers through [facility] and paid for through [employer]. PT/OT are recommending SNF rehab at time of d/c, however pt is declining that and her preference is to return home w/caregivers. She will likely need her cg to transport her back home once she's medically cleared for home d/c. Payor: Medicare PCP: Aranza Vasquez Pt is a 87 year-old F who presented to the ED via EMS last evenng following a fall at home resulting in lower back and bilateral hip pain. CT scan was negative for fractures, however pt is not able to ambulate due to pain. She was also found to be hypoxic and was placed on 2LO2, although she is not on home O2 at baseline. Pt is established with [facility], who also manages her [facility] caregivers. Pt was dx wtih acute CHF, multiple subacute compression fractures and hypokalemia. Plan is to continue diuresis, ECHO results are pending, and focus on pain control. DCP will continue to follow and assist with transition home and any further support needs. Will plan to update [facility] once a d/c date has been established. Discharge Planning/Care Management Advanced directive, confirm from FAMILY Start: 09/06/23 12:55 Freq: Q24H Status: Active Protocol: Document 09/06/23 12:55 MM (Rec: 09/06/23 18:27 MM [id number]) Advance Directive, confirm on record Time 18:00 Person contacted Pt Copy received No Advanced directive available on record No CM Discharge Assessment Start: 09/07/23 14:07 Freq: Status: Active Protocol: Document 09/07/23 14:07 DPL (Rec: 09/07/23 14:13 DPL [id number]) Discharge Planning Assessment Assigned Melt Superintendant RAYMUNDO Guzmán Advance Directives? No Advance Directives on File No History Provided By Patient,Medical Record Has Patient been admitted in last 30 No days? Prior Living Arrangements Apartment/Condo Household Members none Type of transporation used prior to Relies on Others admit Independent with ADL's No: modified independent w/ walker and in-home caregivers Is patient alert and oriented? Yes Needs Assistance With Managing Medications,Home Chores / Shopping Caregiver for Another No DME Already Rented / Owned FWW / Walker Comment Pt declines the recommendation to d/c to [facility]. Barriers to Discharge No Discharge Plan Foster Care Referrals Initiated None needed If patient plan is SNF: Has PASSR been Yes completed? Whiteboard Updated in Patient Room with Yes name and ext. # of Melt Superintendant Review Status In Process Please Provide Date Initial DC 09/07/23 Assessment Was Performed
[2023-09-07 15:00] VITALS: BP 136/62; PULSE 55; RESP 22; TEMP 36.7; O2SAT 98
[2023-09-07 19:20] VITALS: PULSE 73; O2SAT 94
[2023-09-07 20:00] VITALS: BP 128/63; PULSE 72; RESP 16; TEMP 37.1; O2SAT 95
[2023-09-07] MEDS: OXYCODONE IR 5 MG TABLET 10 MG PO (23:39)
[2023-09-07] MEDS: SODIUM CHLORIDE 0.9% FLUSH 10 ML IV (23:43)
[2023-09-08] VITALS (7 sets, daily range): BP systolic 129–156; BP diastolic 55–76; PULSE 63–72; RESP 14–19; TEMP 36.3–36.9; O2SAT 94–99
[2023-09-08] MEDS: SODIUM CHLORIDE 0.9% FLUSH 10 ML IV ×3 (05:03→21:28)
[2023-09-08] MEDS: FUROSEMIDE 40 MG/4 ML VIAL IV ×2 (05:03→18:13)
[2023-09-08] MEDS: OXYCODONE IR 5 MG TABLET 10 MG PO ×3 (05:39→18:52)
--- NOTE | 2023-09-08 05:46 | PC.NURSE ---
Patient C/O pain, reported pain level @ 10/10 this morning. States since I fell, my back & my side hurts more. Whatever your giving me is not working, will notify hospitalist & monitor.
[2023-09-08 06:25] LABS: Add Manual Diff / Slide Review NO; Basophils Absolute Auto 0 /uL (0-100); Basophils Percent Auto 0.6 % (0-2); Eosinophils Absolute Auto 400 /uL (0-450); Eosinophils Percent Auto 5.9 % (2-4); Hematocrit 38.8 % (36-46); Hemoglobin 13.2 g/dL (12.0-16.0); Lymphocytes Absolute Auto 1900 /uL (1100-4500); Mean Corpuscular HGB Conc 34.1 % (30-36); Mean Corpuscular Hemoglobin 31.4 PG (26-34); Monocytes Absolute Auto 700 /uL (0-900); Monocytes Percent Auto 11.3 % (3-14); Neutrophils Absolute Auto 3100 /uL (1500-7000); Neutrophils Percent Auto 51.2 % (50-75); Platelet Count 204 X10^3/uL (150-400); Red Blood Cell Count 4.22 X10^6/uL (4.0-5.2); Red Cell Distribution Width 13.4 % (11.6-14.8); White Blood Cell Count 6.1 X10^3/uL (4.5-11.0)
[2023-09-08 06:40] LABS: BUN Creatinine Ratio 28.6 (6-22); Blood Urea Nitrogen 34 mg/dL (7-17); Calcium 8.9 mg/dL (8.4-10.2); Carbon Dioxide 31 mmol/L (22-32); Chloride 99 mmol/L (98-107); Estimated Glomerular Filt Rate 44 mL/min (>60); Glucose 117 mg/dL (80-110); HEMOLYSIS < 15 (0-50); Potassium 3.9 mmol/L (3.4-5.1); Sodium 138 mmol/L (137-145)
--- NOTE | 2023-09-08 07:24 | PM.PN.1 ---
Subjective Subjective Interval history: Her lower back pain is still active but very slowly improving. She was able to stand but not really walk or transfer yesterday. She continues to resist the idea of a care home facility transition. She denies any dyspnea, or confusion. Exam Vital Signs (past 8 hours): - 09/08/23 00:00 09/08/23 04:00 Temperature 98.5 F 97.7 F Pulse Rate 72 63 Respiratory Rate 16 16 Blood Pressure 129/60 129/55 L Pulse Oximetry 97 99 Oxygen Flow Rate 2 2 Oxygen Delivery Method Nasal Cannula Oxygen Flow Rate 2 Narrative Exam Narrative: NAD, alert and oriented. Fluent speech. Lungs are clear, normal rate and effort. Heart is regular, no murmur gallop or rub. Abdomen is soft, non distended. Extremities are free of edema. Objective Imaging ECHO: Radiologist's impression: The ejection fraction is estimated to be 65-70%. Grade I diastolic dysfunction. The right ventricular systolic function is normal. Both atria are normal in size. No significant valvular abnormality. The IVC is of normal diameter and collapses greater than 50% with a sniff. This suggests a low right atrial pressure of 3 mm Hg. Labs 09/08/23 05:47 09/08/23 05:47 Labs: Laboratory Results - last 24 hr 09/08/23 05:47 WBC 6.1 RBC 4.22 Hgb 13.2 Hct 38.8 MCV 92.0 MCH 31.4 MCHC 34.1 RDW 13.4 Plt Count 204 Neut % (Auto) 51.2 Lymph % (Auto) 31.0 [place] % (Auto) 11.3 Eos % (Auto) 5.9 H Baso % (Auto) 0.6 Neut # (Auto) 3100 Lymph # (Auto) 1900 [place] # (Auto) 700 Eos # (Auto) 400 Baso # (Auto) 0 Sodium 138 Potassium 3.9 Chloride 99 Carbon Dioxide 31 BUN 34 H Creatinine 1.19 H Estimated GFR 44 L BUN/Creatinine Ratio 28.6 H Glucose 117 H Calcium 8.9 PFSH Medical History Insomnia Asthma Depression Sciatica Chronic cough Gout Hiatal hernia Osteopenia Peripheral neuropathy Compression fracture Anxiety Scoliosis Osteoarthritis Hemorrhoids Hypothyroid HTN (hypertension) GERD (gastroesophageal reflux disease) Fibromyalgia DJD of left shoulder Lumbar compression fracture Lumbosacral radiculopathy at L4 Spinal stenosis, multilevel Surgical History Status post epidural steroid injection History of total right hip arthroplasty (08/09/14) Status post ORIF of fracture of ankle History of cataract removal with insertion of prosthetic lens Status post hysterectomy Family History Brother Age: 94 Heart disease Brother Age: 89 High cholesterol Father Heart disease Hypertension Mother Hypertension Sister Heart disease Social History household members: none Smoking Status: Former smoker alcohol intake: current Assessment & Plan Assessment & Plan narrative: 1. Acute on chronic diastolic CHF, present on admission and improving. The ejection fraction is estimated to be 65-70%. Grade I diastolic dysfunction. 2. Gait instability and recent fall, present on admission and active. 3. Acute on chronic lower back pain with bilateral leg pain, present on admission and active. 4. Multiple subacute compression fractures, present on admission and active. 5. Asthma, present on admission and stable. 6. Hypertension, present on admission and stable. 7. Peripheral neuropathy, present on admission and stable. 8. Hypokalemia, new and active. PLAN: -diurese with Lasix 40 IV q.12, 2D echo to assess for diastolic dysfunction or LV dysfunction. Echo completed, results pending. -physical therapy and discharge planning. She really does not want to go to [facility] care home Facility, we will look for another facility and see if she was willing to go there. -continue oxycodone 10 mg q.4 hours, looking for care home facility. -replace potassium She is observation status. Anticipate a 2nd night of hospital level care for pain control and diuresis. This supports inpatient status, we will change order. She is full resuscitation, confirmed. Time-Based Coding :: 25 min spent with patient and on the chart (including review of chart, obtaining history, exam, reviewing outside data, placing orders, documenting exam and treatment plan, and counseling patient) on 09/07. Quality VTE Deep Vein Thrombosis/Pulmonary Embolism Present on Admission: No
[2023-09-08] MEDS: ACETAMINOPHEN 325 MG TABLET 650 MG PO (08:40)
[2023-09-08] MEDS: ASPIRIN EC 325 MG TABLET PO ×2 (08:41→21:17)
[2023-09-08] MEDS: DOCUSATE 100 MG CAPSULE PO ×2 (08:41→21:18)
[2023-09-08] MEDS: AMLODIPINE 5 MG TABLET 2.5 MG PO ×2 (08:41→21:18)
[2023-09-08] MEDS: CHOLECALCIFEROL (VITAMIN D3) 1,000 UNIT TABLET 1000 UNIT PO (08:41)
[2023-09-08] MEDS: HEPARIN 5,000 UNIT/ML VIAL 5000 UNIT SUBCUT ×2 (08:41→21:23)
[2023-09-08] MEDS: FLUTICASONE 120 SPRAY/16 GM SPRAY.SUSP NASAL (08:42)
[2023-09-08] MEDS: CALCITONIN,SALMON, NASAL SPRAY 1 SPRAYS NASAL (08:42)
--- NOTE | 2023-09-08 08:55 | PT.IPTN ---
Current Diagnoses Hypertensive heart disease with heart failure (09/06/23) Physical Therapy Treatment Note M2 PT-IP Current Condition Start: 09/06/23 09:08 Freq: Status: Active Protocol: Document 09/06/23 09:15 MB (Rec: 09/06/23 10:11 MB [id number]) Physical Therapy Current Condition Current Condition Evaluation Date 09/06/23 Treatment Diagnosis Fall, back and leg pain M3 PT-IP Subjective Start: 09/06/23 09:08 Freq: Status: Active Protocol: Document 09/08/23 09:43 TS (Rec: 09/08/23 09:51 TS [id number]) Subjective Physical Therapy Visit Type Type Treatment Note Visit Start Time 08:55 Visit Stop Time 09:18 Number of PLAYGROUND SUPERVISOR Visits 2 Physical Therapy Visit Comments Patient Comments Pt found resting in bed, reports swelling in L knee, is agreeable to PT. Therapy Pain Assessment Pain When Pain Assessed During Mobility Pain Present Pain Present Pain Reported M4 PT-IP Mobility and Gait Start: 09/06/23 09:08 Freq: Status: Active Protocol: Document 09/08/23 09:43 TS (Rec: 09/08/23 09:51 TS [id number]) PT-Bed Mobility Assessment Supine to Sit Supine to Sit Minimal Assistance,1 Person Assistance,Head of Bed Elevated,Bedrails Scooting Scooting to Edge of Bed Moderate Assistance PT-Transfer Assessment Sit to and From Stand Sit to and from Stand Maximum Assistance,1 Person Assistance,Use of Upper Extremities Equipment Transfer Assistive Device Gait Belt,Front Wheeled Walker Orthotic/Prosthetic Devices or Brace: No Transfers Transfer Destination Chair Transfer Technique Stand Step Pivot Transfer Ability Level of Assist Moderate Assistance,2 Person Assistance,Use of Upper Extremities Comments Mobility Comments Supine to sit Lindsey for uprighting trunk with HOB elevated. STS with FWW MaxA x1 , pt is slow to stand and leans heavily on FWW with BUE' s. Stand step pivot to chair ModA x2 with FWW, pt knees continue to buckle and pt reports increasing pain in L knee. Pt was left in chair, all needs met. Gait Assessment Gait Gait Assistance Required: Moderate Assistance,2 Person Assist Distance (Feet) 2 Able to Maintain Weight Bearing Status Yes During Gait Assistive Devices Assistive Device Gait Belt,Front Wheeled Walker Gait Deviations General Gait Pattern Antalgic,Decreased Stride Length,Decreased Feet Clearance,Flexed Trunk,Step-to Gait,Wide Based Gait Factors Limiting Gait Function Factors Limiting Gait Function Decreased Activity Tolerance, Decreased Strength,Difficulty Following Directions, Incoordination,Limited Range of Motion,Pain,Poor Balance, Poor Safety Awareness Comments Gait Comments BUTCH peewee and has foot drop. PT-Balance Assessment Sitting Balance and Reactions Static Sitting Balance Ability Fair Dynamic Sitting Balance Ability Poor Standing Balance and Reactions Static Standing Balance Ability Fair Dynamic Standing Balance Ability Poor Device Used FWW M5 PT-IP Objective Assessments Start: 09/06/23 09:08 Freq: Status: Active Protocol: Document 09/06/23 09:15 MB (Rec: 09/06/23 10:11 MB [id number]) Orientation Orientation/Cognition Level of Alertness Alert Orientation Name,Age,Birthday,Month,Year, Day of Week,Place,Situation Language Function Ability No Deficits Noted Safety Awareness Decreased Safety Awareness Memory Description No Deficits Noted Gross Range of Motion Upper Extremity ROM Assessment Bilaterally Impaired Impairments Decreased shoulder flexion B in hook lying Lower Extremity ROM Assessment Bilaterally Impaired Impairments No functional right ankle DF when in bed and decreased foot clearance with side stepping Strength Upper Extremity Strength Assessment Bilaterally Impaired Lower Extremity Strength Assessment Bilaterally Impaired Comments Strength Comments MMT deferred d/t pt's frequent complaints Sensation Assessment Comments Sensation Comments Pt does not follow testing cues and is inconsistent with reports M6 PT-IP Treatment Start: 09/06/23 09:08 Freq: Status: Active Protocol: Document 09/08/23 09:43 TS (Rec: 09/08/23 09:51 TS [id number]) Physical Therapy Treatment Education Education Provided Safety M7 PT-IP Assessment and Plan Start: 09/06/23 09:08 Freq: Status: Active Protocol: Document 09/08/23 09:43 TS (Rec: 09/08/23 09:51 TS [id number]) PT Summary Assessment and Plan Potential Rehabilitation Potential Fair Summary Impairments Pain,ROM,Strength,Balance, Coordination,Sensation,Bed Mobility,Transfers,Gait, Activity Tolerance Progress Towards Goals Slow Progress due to Pain,Slow Progress due to Activity Tolerance Assessment Summary Uyen continues to make slow progress with her mobility. She has most difficulty with transfers and gait. She has pain in LLE and buckling of knees limiting her in progressing her mobility. PT continues to recommend SNF. Goals Bed Mobility Goal Independent Transfer Goal Independent,Front Wheeled Walker,Four Wheeled Walker Gait Goal Independent,Front Wheel Walker ,Four Wheel Walker Gait Distance 75 Days to Meet Goals 5 Frequency of Treatment Frequency Of Treatment Once a Day Treatment Plan Physical Therapy Treatment Plan Bed Mobility Training,Transfer Training,Gait Training, Therapeutic Exercise,Balance Retraining,Discharge Planning, Hot or Cold Pack,Neuromuscular Re-ed,Manual Therapy Weight Bearing Status Weight Bearing Status Weight Bear as Tolerated Recommendations To Nursing Amount of Assist Needed 2 Person Assist Discharge Recommendations PT Discharge Recommendations SNF Rehab Transportation Needs at Discharge Wheelchair/Cabulance
--- NOTE | 2023-09-08 11:43 | CM.DPC ---
DCP Cont. Reviewed EMR and team rounds for status updates. Pt continues to express resistance about discharging to SNF rehab, and insists that even with only part-time caregivers, that she can manage at home. She cannot walk. BEEF CATTLE FARM WORKER emphasized that both therapies and the Hospitalist feel that she's unsafe to go home alone, and recommend SNF rehab. Sent referral to [facility] for review. Will monitor for determination.
[2023-09-08] MEDS: polyethylene glycoL 3350 17 GM POWD.PACK PO (18:52)
[2023-09-08] MEDS: MONTELUKAST 10 MG TABLET PO (21:23)
[2023-09-09 00:16] VITALS: BP 157/74; PULSE 62; RESP 17; TEMP 36.2; O2SAT 97
[2023-09-09 04:00] VITALS: BP 144/51; PULSE 63; RESP 21; TEMP 36.3; O2SAT 97
[2023-09-09] MEDS: FUROSEMIDE 40 MG/4 ML VIAL IV (05:13)
[2023-09-09 06:51] LABS: Add Manual Diff / Slide Review NO; Basophils Absolute Auto 0 /uL (0-100); Basophils Percent Auto 0.8 % (0-2); Eosinophils Absolute Auto 300 /uL (0-450); Eosinophils Percent Auto 6.4 % (2-4); Hematocrit 37.8 % (36-46); Hemoglobin 13.1 g/dL (12.0-16.0); Lymphocytes Absolute Auto 1500 /uL (1100-4500); Lymphocytes Percent Auto 28.1 % (25-40); Mean Corpuscular HGB Conc 34.6 % (30-36); Mean Corpuscular Hemoglobin 31.4 PG (26-34); Mean Corpuscular Volume 90.6 fL (80-100); Monocytes Absolute Auto 600 /uL (0-900); Monocytes Percent Auto 10.7 % (3-14); Neutrophils Absolute Auto 3000 /uL (1500-7000); Platelet Count 208 X10^3/uL (150-400); Red Blood Cell Count 4.17 X10^6/uL (4.0-5.2); Red Cell Distribution Width 13.3 % (11.6-14.8); White Blood Cell Count 5.5 X10^3/uL (4.5-11.0)
[2023-09-09 07:05] LABS: BUN Creatinine Ratio 28.7 (6-22); Blood Urea Nitrogen 35 mg/dL (7-17); Calcium 8.8 mg/dL (8.4-10.2); Carbon Dioxide 34 mmol/L (22-32); Chloride 96 mmol/L (98-107); Estimated Glomerular Filt Rate 43 mL/min (>60); Glucose 114 mg/dL (80-110); HEMOLYSIS < 15 (0-50); Potassium 3.6 mmol/L (3.4-5.1); Sodium 136 mmol/L (137-145)
--- NOTE | 2023-09-09 07:28 | P.PN_ITS ---
Subjective Subjective Interval history: Exam Vital Signs (past 8 hours): - 09/09/23 00:16 09/09/23 04:00 Temperature 97.2 F L 97.3 F L Pulse Rate 62 63 Respiratory Rate 17 21 Blood Pressure 157/74 H 144/51 H Pulse Oximetry 97 97 Oxygen Flow Rate 0 1 Oxygen Delivery Method Nasal Cannula Oxygen Flow Rate 1 Narrative Exam Narrative: NAD, alert and oriented. Fluent speech. Lungs are clear, normal rate and effort. Heart is regular, no murmur gallop or rub. Abdomen is soft, non distended. Extremities are free of edema. Objective Labs 09/09/23 06:27 09/09/23 06:27 Labs: Laboratory Results - last 24 hr 09/09/23 06:27 WBC 5.5 RBC 4.17 Hgb 13.1 Hct 37.8 MCV 90.6 MCH 31.4 MCHC 34.6 RDW 13.3 Plt Count 208 Neut % (Auto) 54.0 Lymph % (Auto) 28.1 [place] % (Auto) 10.7 Eos % (Auto) 6.4 H Baso % (Auto) 0.8 Neut # (Auto) 3000 Lymph # (Auto) 1500 [place] # (Auto) 600 Eos # (Auto) 300 Baso # (Auto) 0 Sodium 136 L Potassium 3.6 Chloride 96 L Carbon Dioxide 34 H BUN 35 H Creatinine 1.22 H Estimated GFR 43 L BUN/Creatinine Ratio 28.7 H Glucose 114 H Calcium 8.8 PFSH Medical History Insomnia Asthma Depression Sciatica Chronic cough Gout Hiatal hernia Osteopenia Peripheral neuropathy Compression fracture Anxiety Scoliosis Osteoarthritis Hemorrhoids Hypothyroid HTN (hypertension) GERD (gastroesophageal reflux disease) Fibromyalgia DJD of left shoulder Lumbar compression fracture Lumbosacral radiculopathy at L4 Spinal stenosis, multilevel Surgical History Status post epidural steroid injection History of total right hip arthroplasty (08/09/14) Status post ORIF of fracture of ankle History of cataract removal with insertion of prosthetic lens Status post hysterectomy Family History Brother Age: 94 Heart disease Brother Age: 89 High cholesterol Father Heart disease Hypertension Mother Hypertension Sister Heart disease Social History household members: none Smoking Status: Former smoker alcohol intake: current Assessment & Plan Assessment & Plan narrative: 1. Acute on chronic diastolic CHF, present on admission and improving. The ejection fraction is estimated to be 65-70%. Grade I diastolic dysfunction. 2. Gait instability and recent fall, present on admission and active. 3. Acute on chronic lower back pain with bilateral leg pain, present on admission and active. 4. Multiple subacute compression fractures, present on admission and active. 5. Asthma, present on admission and stable. 6. Hypertension, present on admission and stable. 7. Peripheral neuropathy, present on admission and stable. 8. Hypokalemia, new and improved. PLAN: -continue to diurese with Lasix 40 IV q.12 -physical therapy and discharge planning. She really does not want to go to [facility] usp Facility, we will look for another facility and see if she was willing to go there. -continue oxycodone 10 mg q.4 hours, looking for usp facility. -replace potassium Anticipate a 2nd night of hospital level care for pain control and diuresis. This supports inpatient status. She is full resuscitation, confirmed. MYA/Dispo: She had needs a usp facility but continues to decline this. She is against [facility]. Time-Based Coding :: 20 min spent with patient and on the chart (including review of chart, obtaining history, exam, reviewing outside data, placing orders, documenting exam and treatment plan, and counseling patient) on 09/08. Quality VTE Deep Vein Thrombosis/Pulmonary Embolism Present on Admission: No
[2023-09-09 08:00] VITALS: BP 114/47; PULSE 69; RESP 18; TEMP 36.2; O2SAT 95
[2023-09-09] MEDS: HEPARIN 5,000 UNIT/ML VIAL 5000 UNIT SUBCUT (10:00)
[2023-09-09] MEDS: CALCITONIN,SALMON, NASAL SPRAY 1 SPRAYS NASAL (10:00)
[2023-09-09] MEDS: ASPIRIN EC 325 MG TABLET PO (10:00)
[2023-09-09] MEDS: FLUTICASONE 120 SPRAY/16 GM SPRAY.SUSP NASAL (10:00)
[2023-09-09] MEDS: CHOLECALCIFEROL (VITAMIN D3) 1,000 UNIT TABLET 1000 UNIT PO (10:00)
[2023-09-09] MEDS: DOCUSATE 100 MG CAPSULE PO (10:00)
[2023-09-09] MEDS: ACETAMINOPHEN 325 MG TABLET 650 MG PO (10:05)
[2023-09-09] MEDS: AMLODIPINE 5 MG TABLET 2.5 MG PO (10:05)
--- NOTE | 2023-09-09 10:42 | CM.DPC ---
DCP Cont. Reviewed EMR and team rounds for pt's status updates. Called [facility] to clarify if they can accept-they can. Will fax d/c clinicals and [facility], transportation has been arranged to transport her at 2:30pm. No further DCP needs identified at this time.
--- NOTE | 2023-09-09 10:58 | P.DS_ITS ---
History of Present Illness History of Present Illness Chief complaint: fall Narrative: From ED doctor: 87-year-old female with fall at home, complains of low back pain, as well as dken-[id number]-modd-right hip pain. She denies pain to her head, neck, chest, upper back, abdomen, pelvis. No pain to mid distal thighs, knees, foreleg, ankles, feet, toes. She does admit to aspirin use, but denies other blood thinner medication use. Denies any recent illness symptoms, fevers, cough, dysuria, frequency of urination, loose stools, black stools, red stools, nausea, vomiting. Additional info: She lives alone in [place]. She had a fall and was evaluated by medics but declined transport. She then had great difficulty with ADLs and moving around her apartment the next 2 days. She was lower back pain and bilateral leg pain. Ultimately she called for help was brought to the emergency department. She has been in the emergency department under observation status for the past 30 hours. The patient was on normal saline at 100, she developed hypoxia and shortness a breath this morning. She was diuresed for acute heart failure after a chest x- ray revealed pulmonary edema and pleural effusion. She denies any chest pain, or palpitations. She has no cardiac history. She does note that she was weak and has a lot of pain from her fall. She has no local family members, her children are scattered across [place]. She has no intention moving out of the area either. She has been constipated but denies any urinary symptoms such as dysuria or hematuria. No fevers, chills. She also denies a cough. Discharge Providers Provider Date of admission: 09/06/23 11:51 Discharge Date: 09/09/23 Primary care physician: Aranza Dukes PA-C Consults: 09/05/23 11:27 Consult to [facility] [place] - Dairy Inspector Stat Comment: Dairy Inspector Consult needed for:: Not safe at home Consult to Physical Therapy Evaluate & Treat Comment: Physician Instructions: Evaluate and Treat 09/05/23 22:33 Consult to Physical Therapy Evaluate & Treat Comment: unsafe discharge, ?[facility]P Physician Instructions: Evaluate and Treat 09/06/23 01:55 Consult to Physical Therapy Evaluate & Treat Comment: possible NHP, failed ambulation trial Physician Instructions: Evaluate and Treat 09/06/23 12:31 Consult to Discharge Planning Routine Comment: Consult to Physical Therapy Evaluate & Treat Comment: Physician Instructions: Evaluate and Treat Discharge provider: See Borjas MD Summary Hospital Course Discharge Diagnosis: 1. Acute on chronic diastolic CHF, present on admission and improving. The ejection fraction is estimated to be 65-70%. Grade I diastolic dysfunction. 2. Gait instability and recent fall, present on admission and active. 3. Acute on chronic lower back pain with bilateral leg pain, present on admission and active. 4. Multiple subacute compression fractures, present on admission and active. 5. Asthma, present on admission and stable. 6. Hypertension, present on admission and stable. 7. Peripheral neuropathy, present on admission and stable. 8. Hypokalemia, new and resolved. Hospital Course: She was admitted with a fall at home and acute on chronic lower back pain which was greater in the left than the right side. She was found to have evidence of volume overload, heart failure, and hypoxia after being in the emergency department as an observation patient for 30 hours. She was diuresed, echo confirmed probable diastolic dysfunction. And she improved with diuresis. A lidocaine patch was placed on her lower back and she primarily used oxycodone or Tylenol for pain. She was resistant to the idea of a [place] [facility] facility but ultimately was willing to be discharged for ongoing rehabilitation and general care. She will be discharged on a diuretic and low-dose potassium with close attention to her volume status at her [place] [facility]. She may be able to come off from this within the next 1-2 weeks pending her ability to wean and stay off from oxygen. Status at Discharge Cognitive/behavioral status at discharge: oriented Functional status at discharge: uses cane/walker Overall status at discharge: patient is not back to baseline Time Spent with Patient Time spent: Greater than 30 minutes Exam Vital Signs (past 8 hours): - 09/09/23 04:00 09/09/23 07:00 09/09/23 07:36 Temperature 97.3 F L Pulse Rate 63 Respiratory Rate 21 Blood Pressure 144/51 H Pulse Oximetry 97 Oxygen Delivery Method Room Air Nasal Cannula Oxygen Flow Rate 1 1 Fraction of Inspired Oxygen 24 09/09/23 08:00 Temperature 97.1 F L Pulse Rate 69 Respiratory Rate 18 Blood Pressure 114/47 L Pulse Oximetry 95 Oxygen Delivery Method Oxygen Flow Rate Fraction of Inspired Oxygen Fraction of Inspired Oxygen 24 Oxygen Delivery Method Nasal Cannula Oxygen Flow Rate 1 Narrative Exam Narrative: NAD, alert and oriented. Fluent speech. Lungs are clear, normal rate and effort. Heart is regular, no murmur gallop or rub. Abdomen is soft, non distended. Extremities are free of edema. Objective ECG Impression: Sinus rhythm with 1st degree AV block with premature atrial complexes Nonspecific T wave abnormality Electronically Signed On 09-08-2023 16:45:09 PDT by See Mcmahon Multiple studies:: Radiologist's impression: Echo: The ejection fraction is estimated to be 65-70%. Grade I diastolic dysfunction. The right ventricular systolic function is normal. Both atria are normal in size. No significant valvular abnormality. The IVC is of normal diameter and collapses greater than 50% with a sniff. This suggests a low right atrial pressure of 3 mm Hg. Chest CTA: 1. No acute pulmonary emboli. 2. Small right pleural effusion with minimal right basilar atelectasis. 3. Moderate coronary artery calcifications. 4. Severe osteoporosis with numerous compression fractures. Comment: If clinically suspect pain related to an acute or subacute compression fracture, consider nonemergent MRI of the thoracic and lumbar spine. Chest x-ray: No acute cardiopulmonary abnormality is seen. Abdomen and pelvis CT: o acute process in the abdomen or pelvis. Chronic compression deformities of L1-T12, progressed since 04/16/2021. Status post bilateral hip arthroplasty. No acute fracture identified, however bones are demineralized and adjacent streak artifact limits evaluation. Labs 09/09/23 06:27 09/09/23 06:27 Labs: Laboratory Results - last 24 hr 09/09/23 06:27 WBC 5.5 RBC 4.17 Hgb 13.1 Hct 37.8 MCV 90.6 MCH 31.4 MCHC 34.6 RDW 13.3 Plt Count 208 Neut % (Auto) 54.0 Lymph % (Auto) 28.1 [place] % (Auto) 10.7 Eos % (Auto) 6.4 H Baso % (Auto) 0.8 Neut # (Auto) 3000 Lymph # (Auto) 1500 [place] # (Auto) 600 Eos # (Auto) 300 Baso # (Auto) 0 Sodium 136 L Potassium 3.6 Chloride 96 L Carbon Dioxide 34 H BUN 35 H Creatinine 1.22 H Estimated GFR 43 L BUN/Creatinine Ratio 28.7 H Glucose 114 H Calcium 8.8 PFSH Medical History Insomnia Asthma Depression Sciatica Chronic cough Gout Hiatal hernia Osteopenia Peripheral neuropathy Compression fracture Anxiety Scoliosis Osteoarthritis Hemorrhoids Hypothyroid HTN (hypertension) GERD (gastroesophageal reflux disease) Fibromyalgia DJD of left shoulder Lumbar compression fracture Lumbosacral radiculopathy at L4 Spinal stenosis, multilevel Surgical History Status post epidural steroid injection History of total right hip arthroplasty (08/09/14) Status post ORIF of fracture of ankle History of cataract removal with insertion of prosthetic lens Status post hysterectomy Family History Brother Age: 94 Heart disease Brother Age: 89 High cholesterol Father Heart disease Hypertension Mother Hypertension Sister Heart disease Social History household members: none Smoking Status: Former smoker alcohol intake: current Discharge Assessment & Plan Assessment and Plan Assessment: 1. Acute on chronic diastolic CHF, present on admission and improving. The ejection fraction is estimated to be 65-70%. Grade I diastolic dysfunction. 2. Gait instability and recent fall, present on admission and active. 3. Acute on chronic lower back pain with bilateral leg pain, present on admission and active. 4. Multiple subacute compression fractures, present on admission and active. 5. Asthma, present on admission and stable. 6. Hypertension, present on admission and stable. 7. Peripheral neuropathy, present on admission and stable. 8. Hypokalemia, new and resolved. Plan of Treatment: Stable for discharge to [place] [facility]. Consider stopping Lasix and potassium in the next week if she has improved volume status and then monitoring. Discharge Plan Discharge Plan Patient Disposition: SNF Transfer to: [facility] Provider Discharge Comment: Stable for discharge to [place] [facility] for ongoing pain control. Discharge orders & Medications Prescriptions: New aspirin 325 mg Tablet,Delayed Release (Dr/Ec) 325 mg PO BID Qty: 28 0RF calcitonin (salmon) 200 unit/actuation [place],Non-Aerosol 1 unit intranasal DAILY Qty: 14 0RF cholecalciferol (vitamin D3) 25 mcg (1,000 unit) Tablet 1,000 unit PO DAILY Qty: 60 2RF lidocaine 5 % Adhesive Patch,Medicated 1 patch topical DAILY Qty: 30 1RF furosemide [Lasix] 20 mg tablet 20 mg PO DAILY Qty: 30 0RF potassium chloride [Klor-Con 10] 10 mEq tablet extended release 10 meq PO DAILY Qty: 30 0RF oxycodone 10 mg tablet 10 mg PO Q6H PRN (Reason: pain) Qty: 20 0RF Continued methocarbamol 500 mg Tablet 500 mg PO BID amlodipine 2.5 mg Tablet 2.5 mg PO QAM telmisartan 80 mg Tablet 80 mg PO BEDTIME docusate sodium 100 mg Capsule 100 mg PO BID PRN (Reason: constipation) Qty: 30 0RF hydroxyzine pamoate 25 mg Capsule 25 mg PO Q4HR PRN (Reason: Muscle spasm/pain/nausea) Qty: 60 0RF ibuprofen 400 mg Tablet 400 mg PO Q6HR PRN (Reason: Pain/inflammation) Qty: 90 0RF polyethylene glycol 3350 17 gram Powder In Packet 17 g PO DAILY PRN (Reason: Constipation) Qty: 14 0RF vitamin B complex Tablet 1 tab PO DAILY diphenhydramine HCl [Benadryl] 25 mg capsule 25 mg PO Q4H PRN (Reason: Seasonal allergies) Rx Instructions: does not take this medication anymore montelukast 10 mg tablet 10 mg PO QPM fluticasone propionate [Flonase Allergy Relief] 50 mcg/actuation spray,suspension 2 spray NASAL BID vitamin B complex capsule 1 cap PO DAILY Discontinued oxycodone 10 mg Tablet 10 mg PO Q3HR PRN (Reason: Pain, Severe (7-10)) Qty: 42 0RF oxycodone-acetaminophen 5-325 mg tablet 1 tab PO BID PRN (Reason: Pain, Severe) aspirin 325 mg tablet,delayed release (DR/EC) 325 mg PO DAILY calcitonin (salmon) 200 unit/actuation spray,non-aerosol 1 spray Intranasal (ALT) DAILY cholecalciferol (vitamin D3) 1,000 unit capsule 1,000 unit PO DAILY Follow up/Referrals: Aranza Dukes PA-C [Primary Care Provider] - Discharge Health Status Multidrug resistant organism: No MDRO Diet/Activity/Treatments Diet: Regular Skin/Wound/Dressing Care Report to your healthcare provider any signs of infection, such as:: chills, fever, increased pain and unusual redness Special Rehabilitation Services Reason for rehabilitation: Recovery r/t decondition Rehab type: Physical therapy and Occupational therapy Visit Report/Discharge Packet Stand Alone Forms: Patient Portal/API Discharge Data Primary Care Provider: Aranza Dukes VTE Deep Vein Thrombosis/Pulmonary Embolism Present on Admission: No
[2023-09-09] MEDS: OXYCODONE IR 5 MG TABLET 10 MG PO ×2 (11:31→14:28)
[2023-09-09] MEDS: LIDOCAINE 5% PATCH 1 EACH TOP (11:33)
[2023-09-09 12:00] VITALS: BP 127/75; PULSE 69; TEMP 36.9; O2SAT 94
--- NOTE | 2023-09-09 14:59 | PC.NURSE ---
Patient is A&OX3, slightly forgetful. She c/o severe back pain, but pain appears to be controlled with PRN oxycodone today. she is also given a lidocaine patch for her back. She states her pain is increased with moving and standing and is a x1 max assists to chair this a.m. She is weaned to RA, o2 sats range from 90-96% on RA. She c/o feeling SOB and encouraged to take slow deep breaths. Lung sounds diminished but clear throughout and she has a strong cough. No edema noted to feet and ankles. RN called report to [facility] at 1415 but unable to reach RN, left voicemail. Packet given to transporter. she is transported with purse and belonging bag with clothing and shoes.
== END 2023-09-09 14:40 | DRG 291 ==
LOC: ED 09-06 11:49 → AC 09-06 12:42
PROVIDERS: Admitting Provider Hospitalist; Emergency Provider Emergency Medicine; PCP Physician Assistant; Referring Provider Emergency Medicine; Visit Provider Hospitalist
DX: I11.0 Hypertensive heart disease with heart failure (principal); I50.33 Acute on chronic diastolic (congestive) heart failure; S32.019A Unspecified fracture of first lumbar vertebra, initial encounter for closed fracture; R26.89 Other abnormalities of gait and mobility; M54.50 Low back pain, unspecified; G89.29 Other chronic pain; J45.909 Unspecified asthma, uncomplicated; G62.9 Polyneuropathy, unspecified; E87.6 Hypokalemia; W19.XXXA Unspecified fall, initial encounter; Z87.891 Personal history of nicotine dependence
CPT/HCPCS: 36415; 71045; 71275; 74176; 80048; 80053; 81003; 82550; 83880; 84484; 85025; 85379; 87633; 93005; 93306; 96374; 97161; 97530; 99285; J1644; J1940; Q9967